=== PATIENT | male | born 1965 | race Caucasian/White ===

== ENCOUNTER → 2017-12-16 | Outpatient (CLI) | payer MEDICARE, OTHER ==
[2017-12-16 16:11] LABS: Blood Urea Nitrogen 19 mg/dL (9-20)
--- NOTE | 2017-12-16 20:37 | MR ---
EXAMINATION TYPE: MR iac wo/w con DATE OF EXAM: 12/16/2017 5:31 PM COMPARISON: NONE HISTORY: Hearing loss TECHNIQUE: Multiplanar and multispin-echo imaging of the brain was performed both before and after the administr ation of contrast. High-resolution images are obtained of the internal auditory canals performed uti lizing 9 mL intravenous Gadavist contrast. The ventricles, basal cisterns and sulci overlying the cerebral convexities are mildly enlarged. There is no evidence for midline shift or mass effect. Acute intracranial hemorrhage or extra-axial collection is not evident. There are no abnormal areas of increased or decreased signal intensity within the brain parenchyma. High-resolution imaging of the internal auditory canals fails demonstrate evidence for an enhancing a coustic schwannoma or cerebellopontine cistern angle mass. Following contrast administration, there is no evidence for pathologic enhancement or enhancing mass. The paranasal sinuses and mastoid air cells are well-aerated. IMPRESSION: 1. No evidence of acoustic schwannoma or cerebellopontine angle mass.
== END | disposition home or self-care (01) ==
LOC: RADMRIMAIN 15:31
PROVIDERS: ATTEND Otolaryngology
DX: H91.90 Unspecified hearing loss, unspecified ear (principal); H93.19 Tinnitus, unspecified ear
CPT/HCPCS: 82565; 84520; 70553; 36415; A9581

== ENCOUNTER → 2018-10-29 | Outpatient (CLI) | payer MEDICARE, OTHER | LOC: LABWHC1 14:46 | PROVIDERS: ATTEND Nurse Practitioner Adult Health | DX: D72.829 Elevated white blood cell count, unspecified (principal); E11.9 Type 2 diabetes mellitus without complications; I10 Essential (primary) hypertension; R79.89 Other specified abnormal findings of blood chemistry | CPT/HCPCS: 36415; 93005 ==

== ENCOUNTER 2019-06-12 04:06 | Inpatient (IN) | payer MEDICARE, OTHER ==
[2019-06-12] MEDS ORDERED: IOPAMIDOL-370 100ML BTL ONE (04:22)
[2019-06-12] MEDS ORDERED: IOPAMIDOL-370 125ML BTL ONE (04:22)
[2019-06-12] MEDS ORDERED: BIVALIRUDIN 250 MG VIAL IV ONE (04:22)
[2019-06-12] MEDS ORDERED: NITROGLYCERIN 1000MCG/10ML SYRINGE ONE (04:22)
[2019-06-12] MEDS ORDERED: LIDOCAINE 1% INJ 10MG/ML (20 ML MDV) ONE (04:22)
[2019-06-12] MEDS ORDERED: SODIUM CHLORIDE 0.9% 500 ML BAG ONE (04:22)
[2019-06-12] MEDS ORDERED: TICAGRELOR 90 MG TAB ONE (04:22)
[2019-06-12] MEDS ORDERED: fentaNYL (PF) 50 MCG/ML 2 ML AMP ONE (04:22)
[2019-06-12] MEDS ORDERED: SODIUM CHLORIDE 0.9% 50 ML MINI-BAG IV ONE (04:22)
[2019-06-12] MEDS ORDERED: MAG HYDROX/AL HYDROX/SIMETH 30 ML CUP PO PRN (05:39)
[2019-06-12] MEDS ORDERED: RX INFO: IV CONTRAST WAS GIVEN 1 EACH MISC MISCELLANE PRN (05:39)
[2019-06-12] MEDS ORDERED: NITROGLYCERIN SL TABS 0.4 MG TAB SUBLINGUAL PRN (05:39)
[2019-06-12] MEDS ORDERED: ATROPINE SULFATE 0.1 MG/ML 10ML SYRINGE IV PRN (05:39)
[2019-06-12 06:23] LABS: Glucose,Whole Blood 145 mg/dL (75-99)
--- NOTE | 2019-06-12 06:29 | CONS ---
CONSULTATION Mr. Camacho is a 53-year-old male with a history of diabetes and hypertension who presented to the emergency room in [facility] with not feeling well, feeling nauseated and having some abdominal discomfort. His initial EKG showed no significant changes. Subsequently he had an episode of tachycardia and was given adenosine without any success. He was sedated for possible cardioversion when he converted back to sinus mechanism and his repeat EKG subsequently showed ST elevation anteriorly. In view of that, patient was transferred to [facility] for further evaluation. The patient denies any similar symptoms in the past according to him he felt anxious, short of breath and had abdominal discomfort and heartburn. He denies any prior cardiac history. He denies any history of PND, orthopnea, or peripheral edema. He denies any palpitation or syncope. His coronary risk factors are noted for the diabetes as well as a history of hypertension. He is a nonsmoker. REVIEW OF SYSTEMS: RESPIRATORY SYSTEM: No recent wheezing or cough. GI SYSTEM: No recent GI bleed. No peptic ulcer disease. SYSTEM: No dysuria or hematuria. NERVOUS SYSTEM: No history of stroke or seizure. PHYSICAL EXAMINATION: He is a 53-year-old male, alert, oriented, in no apparent distress. Examined in the cardiac catheterization laboratory. Blood pressure 98/72 with the heart rate of 102. HEAD: Normocephalic. EYES: Sclerae anicteric. NECK: No bruit. LUNGS: Clear to auscultation anteriorly. HEART: Regular rate and rhythm. S1, S2. No S3. No rub or gallop appreciated. ABDOMEN: Soft, obese. Positive bowel sounds. No organomegaly. EXTREMITIES: No edema. Intact distal pulses. LAB DATA: Hemoglobin of 11.5, white blood cells 13.9. BUN and creatinine of 18 and 1.4. Potassium 3.5. Troponin of 0.409. EKG: Initial EKG was sinus mechanism with T-wave inversion in the lateral precordial leads. Subsequent EKG revealed ST elevation in lead V1 through V3 with ST depression in the lateral limb leads. There is an EKG in between the showed wide-complex tachycardia. IMPRESSION: 1. Acute anterior myocardial infarction with ST elevation and an episode of ventricular tachycardia. 2. History of diabetes. 3. Hypertension. RECOMMENDATION: I recommend proceeding with coronary angiography to assess his status and guide his treatment. The rationale behind the procedure as well as the risks and complication were discussed with the patient who is in full understanding and agreement. Thank you for this consult. We will follow with you. MMODL / IJN: [id number] /
--- NOTE | 2019-06-12 06:41 | CC ---
CARDIAC CATHETERIZATION REPORT Mr. Camacho is a 53-year-old male with known history of diabetes, history of hypertension who presented with an acute anterior myocardial infarction complicated by ventricular tachycardia to [facility]. He was transferred to [facility] to undergo emergent cardiac catheterization. The procedure as well as the risks and the complications were discussed with the patient who is in full understanding and agreement. PROCEDURE: Patient was brought to the mobile home laborer. He was draped and prepped in customary fashion after receiving Benadryl and fentanyl and achieving moderate conscious sedated state. Using Xylocaine anesthesia in the Seldinger technique, a 6-Mongolian sheath was introduced in the right femoral artery. Selective right and left coronary angiography was performed using 6-Mongolian FR4 guiding catheter. After obtaining images of the left coronary system and performing coronary angioplasty and stenting images of the right coronary artery performed using 6-Mongolian 4 bend right Miguel catheter and subsequently a 6-Mongolian tight pigtail catheter was introduced in the left ventricle and pressures were calculated. Following that, catheter and sheath were removed. Hemostasis was obtained with deployment of an Angio-Seal. There was no immediate complication. Patient was returned to his room in stable condition. FINDINGS: FLUOROSCOPY: There was calcification involving the left anterior descending artery. LEFT MAIN: This is a large-sized vessel bifurcating in left circumflex, left anterior descending artery. Left main coronary artery has no evidence of high-grade stenosis. LEFT ANTERIOR DESCENDING ARTERY: This vessel is totally occluded proximally at the takeoff of the first septal oracle technical architect and first diagonal branch with no antegrade flow. The diagonal branch has a 70% to 80% stenosis in the mid segment. LEFT CIRCUMFLEX: This is a large-sized vessel, nondominant, giving rise to a large very proximal obtuse marginal branch. The second obtuse marginal branch is small in caliber. The left circumflex has mild intimal disease without any evidence of high-grade stenosis. RIGHT CORONARY ARTERY: This is a large dominant vessel bifurcating distally PDA and posterolateral segment and branches. The right PDA has an 80% stenosis in the mid segment. The rest of the vessel has no high-grade stenosis. LEFT VENTRICULOGRAM: Left ventriculogram is not performed. HEMODYNAMICS: There was no gradient across the aortic valve. The left ventricular end-diastolic pressure was 32 to 34 mmHg. CONCLUSION: 1. Totally occluded proximal left anterior descending artery. 2. Significant disease in the right PDA. 3. Mild disease in left circumflex. RECOMMENDATION: In view of finding anatomy, I recommend proceeding with angioplasty and stenting of the left anterior descending artery. The procedure as well as the risks and the complications were discussed with the patient who is in full understanding and agreement. MMSHANKAR / KADE: [id number] /
--- NOTE | 2019-06-12 06:50 | PTCA ---
PERCUTANEOUSTRANS CORORONARY ANGIOGRAPHY Mr. Camacho is a 53-year-old male who presented with evidence of an acute myocardial infarction in the anterior distribution, underwent coronary angiography and was found to have a totally occluded proximal LAD. In view of that, recommendation was made regarding angioplasty and stenting. The procedure as well as the risks and the complications were discussed with the patient who is in full understanding and agreement. PROCEDURE: Using the 6-Nepali FR4 guiding catheter, a 0.014 balanced medium weight J-wire was advanced across in the system and positioned in the first septal high school math tutor. Subsequently, a FineCross catheter microcatheter and another 0.014 balanced medium weight J-wire were advanced and attempt to advance the wire into the totally occluded LAD were unsuccessful. The wires were removed and a Whisper J-wire was advanced and positioned distally. Subsequently the FineCross catheter was advanced and the wire was exchanged to a 0.014 balanced medium weight J-wire. After removing the FineCross a 2.0 x 12 mm Trek balloon was advanced and multiple inflations were done, maximum of 10 atmospheres. Following that, the balloon was removed and a 2.5 x 12 mm Trek balloon was advanced and inflations were done at maximum of 8 atmospheres. Following that, the balloon was removed and a 2.75 x 23 mm Xience Manasa stent was deployed post dilated at 16 atmospheres. After removing the balloon, a 3.0 x 12 mm Xience Manasa stent was deployed proximal to the first one and post dilated at 16 atmospheres. After the last inflation, after appropriate wait, images were obtained and repeated. Those images reveal stable successful stenting. At that point, the guiding catheter, the balloon and the guidewire were removed. Images of the right coronary artery and left ventricular end-diastolic pressure were calculated. Following that, catheter and sheaths were removed. Hemostasis was obtained with deployment of an Angio-Seal. There was no immediate complication. Patient was returned to his room in stable condition. Of note, the patient had no chest discomfort, but he had EKG changes that improved. He received Angiomax per protocol as well as oral loading dose of Brilinta. RESULTS: Successful stenting of the proximal left anterior descending artery with reduction of stenosis from 100% to 0%. The patient has diffuse intimal disease in the distal vessel. RECOMMENDATION: Patient will be continued on aspirin, Brilinta, beta blockers, Dean inhibitor and statin. The importance of dual antiplatelet treatment was discussed with the patient. He is in full understanding and agreement. An echocardiogram with Doppler will be obtained. At a later time, patient will undergo percutaneous revascularization of the right coronary artery. Those findings and recommendation were discussed with the patient and he is in full understanding and agreement. Duration of procedure is 60 minutes. JACKIE / KADE: [id number] /
[2019-06-12] MEDS ORDERED: FUROSEMIDE 10 MG/ML 4 ML VIAL IV STA (07:20)
--- NOTE | 2019-06-12 07:38 | P.PN ---
Subjective Progress Note Date: 06/12/19 Principal diagnosis: Acute coronary syndrome This is a pleasant 53-year-old gentleman with history of diabetes, hypertension, dyslipidemia, presented to the hospital with chest discomfort and was diagnosed with acute anterior ST vision and cardiac infarction. He underwent an emergent heart catheterization and was found to have an acute total occlusion of the LAD and severe disease involving the RCA. He underwent successful stenting of the LAD. On follow-up with him today, 06/12/2019, he is short of breath. Currently he is satting around 91% on 6 L high flow oxygen. On examination he is slightly congested and also does have systolic murmur at the right upper sternal border. An echocardiogram is in process to be done to rule out any ventricular septal defect or mitral regurgitation. Also I am going to obtain a chest x-ray and BNP. Also I'm going to give the patient 40 mg of Lasix IV and follow-up with the previous testing. He denies any chest pain or chest discomfort. He is on dual antiplatelet therapy along with statin, beta janiya, TANISHA inhibitor, and A ldactone. Objective - Vital Signs Vital signs: Intake & Output 06/11/19 06/12/19 06/12/19 18:59 06:59 18:59 Weight 91 kg - Constitutional General appearance: Present: no acute distress - Respiratory Respiratory: bilateral: diminished - Cardiovascular Rhythm: regular Heart sounds: normal: S1, S2 Abnormal Heart Sounds: Present: systolic murmur - Labs Labs: Abnormal Lab Results - Last 24 Hours (Table) 06/12/19 Range/Units 06:22 POC Glucose (mg/dL) 145 H (75-99) mg/dL Assessment and Plan Assessment: Assessment #[address] elevation myocardial infarction #2 status post PCI of the LAD #3 severe disease involving the RCA #4 hypoxemia #5 multiple risk factors including hypertension diabetes and dyslipidemia Plan #1 rule out VSD/mitral regurgitation #2 obtain a chest x-ray #3 obtain a BNP #4 give the dose of Lasix 40 IV #5 follow-up with the patient including follow-up on the echocardiogram
--- NOTE | 2019-06-12 07:42 | XR ---
EXAMINATION TYPE: XR chest 1V portable DATE OF EXAM: 06/12/2019 COMPARISON: NONE HISTORY: Shortness of breath. History of myocardial infarct. TECHNIQUE: Single frontal view of the chest is obtained. FINDINGS: There are diffuse interstitial and some patchy alveolar opacities greater on the left than right secondary to rotation. Cardia mediastinal fluid is enlarged. No sizable pleural effusions or p neumothorax at this time. No acute osseous pathology. IMPRESSION: Diffuse interstitial and alveolar edema. Consider congestive heart failure.
[2019-06-12] MEDS: SODIUM CHLORIDE 0.9% 1,000 ML IV SCH ×2 (07:52→20:40)
[2019-06-12 07:53] LABS: Cholesterol 157 mg/dL (<200); HDL Cholesterol 29 mg/dL (40-60); LDL Cholesterol,Calculated 67 mg/dL (0-99); Triglycerides 306 mg/dL (<150)
[2019-06-12 08:35] LABS: Albumin 3.4 g/dL (3.5-5.0); Calcium 7.9 mg/dL (8.4-10.2); Total Bilirubin 0.5 mg/dL (0.2-1.3); Total Protein 6.6 g/dL (6.3-8.2)
[2019-06-12 08:50] LABS: Basophils # (A) 0.1 k/uL (0-0.2); Basophils % (A) 1 %; Eosinophils % (A) 0 %; HCT 35.7 % (39.0-53.0); HGB 11.1 gm/dL (13.0-17.5); Hypochromasia Slight; Lymphocytes # (A) 1.8 k/uL (1.0-4.8); Lymphocytes % (A) 19 %; MCH 28.4 pg (25.0-35.0); MCHC 31.3 g/dL (31.0-37.0); Mean Platelet Volume 7.2; Monocytes # (A) 0.5 k/uL (0-1.0); Monocytes % (A) 5 %; Neutrophils % (A) 75 %; Platelet Count 278 k/uL (150-450); Poikilocytosis Slight; RBC 3.92 m/uL (4.30-5.90); WBC 9.4 k/uL (3.8-10.6)
[2019-06-12] MEDS: METOPROLOL TARTRATE 25 MG TAB PO SCH ×2 (08:51→21:39)
[2019-06-12] MEDS: ASPIRIN 81 MG PO SCH (08:52)
[2019-06-12] MEDS: TICAGRELOR 90 MG TAB PO SCH ×2 (08:52→21:39)
--- NOTE | 2019-06-12 09:06 | ECHOF ---
Referral Reason:mi MEASUREMENTS -------- HEIGHT: 180.3 cm WEIGHT: 90.7 kg BP: RVIDd: 2.7 cm (< 3.3) IVSd: 1.3 cm (0.6 - 1.1) LVIDd: 5.6 cm (3.9 - 5.3) LVPWd: 1.2 cm (0.6 - 1.1) IVSs: 1.3 cm LVIDs: 4.7 cm LVPWs: 1.3 cm LAESV Index (A-L): 23.64 ml/m Ao Diam: 3.5 cm (2.0 - 3.7) AV Cusp: 2.1 cm (1.5 - 2.6) LA Diam: 3.0 cm (2.7 - 3.8) MV EXCURSION: 18.134 mm (> 18.000) MV EF SLOPE: 205 mm/s (70 - 150) EPSS: 1.0 cm MV E Joce: 1.04 m/s MV DecT: 184 ms MV A Joce: 0.62 m/s MV E/A Ratio: 1.70 RAP: 5.00 mmHg RVSP: 8.99 mmHg TAPSE: 23.08 mm FINDINGS -------- Sinus rhythm. This was a technically difficult study with suboptimal views. The left ventricular size is normal. There is mild concentric left ventricular hypertrophy. Overa ll left ventricular systolic function is moderate-severely impaired with, an EF between 30 - 35 %. Normal LAP Grade 1 Diastolic Dysfunction. Basal anteroseptal LV wall motion is hypokinetic. Mid anteroseptal LV wall motion is hypokinetic. Apical anterior LV wall motion is hypokinetic. Apic al lateral LV wall motion is hypokinetic. Apical inferior LV wall motion is hypokinetic. Apical septum LV wall motion is hypokinetic. The right ventricle is normal in size. The right ventricular systolic function is normal. The left atrial size is normal. Normal LA size by volume 22+/-6 ml/m2. The right atrial size is normal. Lumason used The aortic valve is trileaflet and appears structurally normal. The mitral valve is normal. There is trace mitral regurgitation. The tricuspid valve appears structurally normal. Trace tricuspid regurgitation present. Right main tricular systolic pressure is normal at < 35 mmHg. There is no pulmonic regurgitation present. The aortic root size is normal. IVC Not well visulized. There is no pericardial effusion. CONCLUSIONS -------- 1. Sinus rhythm. 2. This was a technically difficult study with suboptimal views. 3. The left ventricular size is normal. 4. There is mild concentric left ventricular hypertrophy. 5. Overall left ventricular systolic function is moderate-severely impaired with, an EF between 30 - 35 %. 6. Normal LAP Grade 1 Diastolic Dysfunction. 7. Basal anteroseptal LV wall motion is hypokinetic. 8. Mid anteroseptal LV wall motion is hypokinetic. 9. Apical anterior LV wall motion is hypokinetic. 10. Apical lateral LV wall motion is hypokinetic. 11. Apical inferior LV wall motion is hypokinetic. 12. Apical septum LV wall motion is hypokinetic. 13. The right ventricle is normal in size. 14. The right ventricular systolic function is normal. 15. The left atrial size is normal. 16. Normal LA size by volume 22+/-6 ml/m2. 17. The right atrial size is normal. 18. Lumason used 19. The aortic valve is trileaflet and appears structurally normal. 20. The mitral valve is normal. 21. There is trace mitral regurgitation. 22. The tricuspid valve appears structurally normal. 23. Trace tricuspid regurgitation present. 24. Right ventricular systolic pressure is normal at < 35 mmHg. 25. There is no pulmonic regurgitation present. 26. The aortic root size is normal. 27. IVC Not well visulized. 28. There is no pericardial effusion. CONTRACT SPECIALIST: Ashley Chilel RDCS
[2019-06-12] MEDS ORDERED: ADENOSINE 3 MG/ML 2 ML VIAL IVP ONE (09:55)
[2019-06-12] MEDS ORDERED: FUROSEMIDE 10 MG/ML 4 ML VIAL ONE (10:08)
[2019-06-12] MEDS: LISINOPRIL 2.5 MG TAB PO SCH (10:38)
[2019-06-12] MEDS: SPIRONOLACTONE 25 MG TAB PO SCH (10:38)
[2019-06-12] MEDS ORDERED: DEXTROSE 5% IN WATER 100 ML with AMIODARONE 150 MG IV ONE (10:49)
[2019-06-12] MEDS ORDERED: AMIODARONE 360 MG in DEXTROSE 5% IN WATER 200 ML IV ONE ×2 (10:49)
--- NOTE | 2019-06-12 11:12 | P.PN ---
Progress Note - Text Progress Note Date: 06/12/19 This is another progress note for this gentleman who was seen this morning. Please refer to my previous note from this morning. Around 10:30 this morning, the patient did have an episode of wide complex tachycardia consistent with V. tach and he was shocked and cardioverted back to normal sinus mechanism. His pressure has been marginal. Because of that I would hold the lisinopril as well as Aldactone and continue metoprolol. He is going to be loaded with amiodarone with bolus and drip. Also we are obtaining magnesium and potassium level. He diuresed quite well after he was given 40 mg IV Lasix earlier this morning. The BNP came in to be elevated and the chest x- ray showed findings consistent with congestive heart failure. I would recommend giving the patient one more day in the intensive care unit. Continue monitor the heart rhythm. Follow-up the patient. Please note that the echo showed severe cardiomyopathy with EF around 30-35%.
[2019-06-12 11:28] LABS: Magnesium 1.6 mg/dL (1.6-2.3); Potassium 3.6 mmol/L (3.5-5.1)
[2019-06-12 11:41] LABS: Hemoglobin A1C 7.3 % (4.0-6.0)
[2019-06-12] MEDS: MAGNESIUM SULFATE-D5W PMX 1 GM in DEXTROSE/WATER 1 100ML.BAG IVPB SCH ×2 (11:48→13:46)
[2019-06-12] MEDS ORDERED: POTASSIUM CHLORIDE ER 20 MEQ TAB.ER PO SCH (12:00)
[2019-06-12] MEDS ORDERED: DICLOFENAC SODIUM GEL 100 GM TUBE TOPICAL PRN (15:40)
--- NOTE | 2019-06-12 16:07 | P.HPIM ---
History of Present Illness H&P Date: 06/12/19 Chief Complaint: STEMI 53-year-old male patient with history of diabetes and hypertension transferred from [facility] with acute STEMI; patient was admitted with nausea and abdominal pain with stable EKG at time of admission but later developed episode of tachycardia and was given adenosine which was unsuccessful; patient eventually converted back to sinus rhythm at which time EKG showed ST elevation in anterior leads and was transferred to our facility for further evaluation and treatment Upon arrival to the facility patient was directly taken to [facility]; Cardiac catheterization showed total occlusion of proximal LAD for which patient underwent successful stenting and is subsequently transferred to ICU for continued close monitoring In ICU around 10:30 patient had an episode of wide complex tachycardia consistent with V. tach and was shocked and converted back to normal sinus rhythm; blood pressures were marginal at that time and cardiology recommended to hold lisinopril, Aldactone and recommended to continue metoprolol; patient is currently started on amiodarone bolus and infusion; had been complaining of shortness of breath at which time chest x-ray and BNP was done consistent with congestive heart failure; patient was given a dose of IV Lasix per cardiology recommendations Review of Systems REVIEW OF SYSTEMS: CONSTITUTIONAL: No fever, no malaise, no fatigue. Remains very anxious HEENT: No recent visual problems or hearing problems. Denied any sore throat. CARDIOVASCULAR: No chest pain, orthopnea, PND, no palpitations, no syncope. PULMONARY: No shortness of breath, no cough, no hemoptysis. GASTROINTESTINAL: No diarrhea, no nausea, no vomiting, no abdominal pain. NEUROLOGICAL: No headaches, no weakness, no numbness. HEMATOLOGICAL: Denies any bleeding or petechiae. GENITOURINARY: Denies any burning micturition, frequency, or urgency. MUSCULOSKELETAL/RHEUMATOLOGICAL: Denies any joint pain, swelling, or any muscle pain. ENDOCRINE: Denies any polyuria or polydipsia. The rest of the 14-point review of systems is negative. Past Medical History Past Medical History: Diabetes Mellitus, GERD/Reflux, Hyperlipidemia, Hypertension, Osteoarthritis (OA), Thyroid Disorder Additional Past Medical History / Comment(s): dev septum and recurring ulcer in left nostril. ELEVATED WBC (45)-08/21/18 History of Any Multi-Drug Resistant Organisms: MRSA Date of last positivie culture/infection: 07/24/18 MDRO Source:: BACK Past Surgical History: Cholecystectomy, Orthopedic Surgery Additional Past Surgical History / Comment(s): double vision correction. left wrist surgery. RT KNEE SX TO PUT WICK IN TO DRAIN MRSA-10-12 YEARS AGO Past Anesthesia/Blood Transfusion Reactions: No Reported Reaction Smoking Status: Never smoker - Past Family History Mother Family Medical History: Congestive Heart Failure (CHF), Deep Vein Thrombosis (DVT), Myocardial Infarction (AZ), Rheumatoid Arthritis (RA) Father Family Medical History: Cancer Additional Family Medical History / Comment(s): lung Brother(s) Additional Family Medical History / Comment(s): AAA Medications and Allergies Home Medications Medication Instructions Recorded Confirmed Type DULoxetine HCL [Cymbalta] 60 mg PO QAM 02/09/16 06/12/19 History Diclofenac Sodium Gel [Voltaren 1 applic TOPICAL QID PRN 02/09/16 06/12/19 History Gel] Fluticasone Nasal [place] [Flonase 2 spr EA NOSTRIL TID PRN 02/09/16 06/12/19 History Nasal [place]] Metoprolol Succinate (ER) [Toprol 200 mg PO QAM 02/09/16 06/12/19 History Xl] Pioglitazone [Actos] 30 mg PO DAILY 02/09/16 06/12/19 History Rosuvastatin Calcium [Crestor] 20 mg PO QAM 02/09/16 06/12/19 History metFORMIN HCL [Metformin HCl ER] 2,000 mg PO [id number] 02/09/16 06/12/19 History ALPRAZolam [Xanax] 0.5 mg PO BID PRN 09/01/18 06/12/19 History Dextroamphetamine/Amphetamine 30 mg PO 5XD 09/01/18 06/12/19 History [Adderall] Levothyroxine Sodium [Synthroid] 25 mcg PO DAILY 09/01/18 06/12/19 History Loratadine [Claritin] 10 mg PO DAILY 09/01/18 06/12/19 History Omeprazole 20 mg PO DAILY 09/01/18 06/12/19 History Psyllium Husk (with Sugar) 6 gm PO BID PRN 09/01/18 06/12/19 History [Metamucil Powder] Brimonidine Tartrate [Alphagan P 1 drops BOTH EYES BID 06/12/19 06/12/19 History 0.1% Ophth Soln] Dasatinib [Sprycel] 100 mg PO DAILY 06/12/19 06/12/19 History Liraglutide [Victoza 3-Juan Manuel] 1.8 mg SQ DAILY 06/12/19 06/12/19 History Testosterone Cypionate 1 mg IM Q30D 06/12/19 06/12/19 History [Depo-Testosterone] Allergies Allergy/AdvReac Type Severity Reaction Status Date / Time amoxicillin trihydrate Allergy Rash/Hives Verified 06/12/19 08:13 [From Augmentin] latanoprost Allergy Swelling Verified 06/12/19 08:13 potassium clavulanate Allergy Rash/Hives Verified 06/12/19 08:13 [From Augmentin] sulfamethoxazole Allergy Rash/Hives Verified 06/12/19 08:13 [From Bactrim] Tetanus Vaccines and Toxoid Allergy Swelling Verified 06/12/19 08:13 [Tetanus Vaccines & Toxoid] trimethoprim [From Bactrim] Allergy Rash/Hives Verified 06/12/19 08:13 Physical Exam Vitals: Vital Signs Temp Pulse Resp BP Pulse Ox 06/12/19 09:00 94 20 104/64 96 06/12/19 08:00 97.6 F 98 22 111/68 94 L 06/12/19 07:00 97.8 F 98 19 94/66 98 Intake and Output 06/11/19 06/12/19 06/12/19 22:59 06:59 14:59 Intake Total 75 225 Output Total 1150 Balance 75 -925 Intake: IV 150 Sodium Chloride 0.9% 1, 150 000 ml @ 75 mls/hr IV . [id number] BRAD Rx#:[id number] Intake, IV Titration 75 75 Amount Sodium Chloride 0.9% 1, 75 75 000 ml @ 75 mls/hr IV . [id number] BRAD Rx#:[id number] Output: Urine 1150 Other: Weight 91 kg - Constitutional General appearance: Present: average body habitus, cooperative, no acute distress - EENT Eyes: Present: anicteric sclerae, EOMI, PERRLA, normal appearance ENT: Present: hearing grossly normal, normal oropharynx Ears: bilateral: normal - Neck Neck: Present: normal ROM. Absent: lymphadenopathy, rigidity, thyromegaly Carotids: negative: bruit present Thyroid: bilateral: normal size, negative: enlarged, nodule - Respiratory Respiratory: bilateral: CTA, negative: rales, rhonchi, wheezing - Cardiovascular Rhythm: regular Heart sounds: normal: S1, S2 Abnormal Heart Sounds: Absent: systolic murmur, diastolic murmur - Gastrointestinal General gastrointestinal: Present: normal bowel sounds, soft. Absent: distended, organomegaly, tenderness - Genitourinary Genitourinary Comment(s): deferred - Integumentary Integumentary: Present: normal turgor. Absent: jaundiced, rash, ulcer - Neurologic Neurologic: Present: CNII-XII intact. Absent: focal deficits - Musculoskeletal Musculoskeletal: Present: gait normal, strength equal bilaterally - Psychiatric Psychiatric: Present: A&O x's 3, appropriate affect, intact judgment & insight Results CBC & Chem 7: 06/12/19 06:31 06/12/19 10:59 Labs: Abnormal Lab Results - Last 24 Hours (Table) 06/12/19 06/12/19 06/12/19 Range/Units 06:22 06:31 06:31 RBC (4.30-5.90) m/uL Hgb (13.0-17.5) gm/dL Hct (39.0-53.0) % Glucose (74-99) mg/dL POC Glucose (mg/dL) 145 H (75-99) mg/dL Plasma Lactic Acid Will (0.7-2.0) mmol/L Calcium (8.4-10.2) mg/dL AST (17-59) U/L Troponin I 1.080 H* (0.000-0.034) ng/mL Albumin (3.5-5.0) g/dL Triglycerides 306 H (<150) mg/dL HDL Cholesterol 29 L (40-60) mg/dL 06/12/19 06/12/19 06/12/19 Range/Units 06:31 06:31 08:26 RBC 3.92 L (4.30-5.90) m/uL Hgb 11.1 L (13.0-17.5) gm/dL Hct 35.7 L (39.0-53.0) % Glucose 150 H (74-99) mg/dL POC Glucose (mg/dL) (75-99) mg/dL Plasma Lactic Acid Will 2.3 H* (0.7-2.0) mmol/L Calcium 7.9 L (8.4-10.2) mg/dL AST 67 H (17-59) U/L Troponin I (0.000-0.034) ng/mL Albumin 3.4 L (3.5-5.0) g/dL Triglycerides (<150) mg/dL HDL Cholesterol (40-60) mg/dL Assessment and Plan Assessment: 1. Wide complex tachycardia/V. tach - Patient remains on IV amiodarone infusion and metoprolol - 2-D echocardiogram is done and shows severe cardiomyopathy with EF of 30-35% 2. Acute ST elevation [place]; patient is status post cardiac catheterization with stenting of proximal LAD; Also showed severe disuse to RCA; he will continue with dual antiplatelet therapy, statins and beta blockers; stu inhibitors and Aldactone to resume once blood pressure is stable 3. Acute exacerbation of systolic CHF; as indicated EF is 30-35%; patient received Lasix 40 mg IV 1; cardiology is following and will make further recommendations; we will continue to monitor strict GALLO's, daily weights; continue with fluid restricted and low salt diet 4. Diabetes mellitus; monitor Accu-Cheks every before meals and at bedtime with insulin sliding scale protocol 5. Hyperlipidemia; continue with statin therapy with Lipitor 80 mg daily at bedtime 6. Hypothyroidism; levothyroxin 25 MCG daily 7. DVT prophylaxis; dual antiplatelet therapy/ SCDs CODE STATUS; full code Time with Patient: Greater than 30
[2019-06-12 16:46] LABS: Glucose,Whole Blood 203 mg/dL (75-99)
[2019-06-12 17:43] LABS: Glucose,Whole Blood 188 mg/dL (75-99)
[2019-06-12] MEDS: INSULIN ASPART (NovoLOG) 100 UNIT/ML VIAL SQ SCH ×2 (17:45→21:38)
[2019-06-12] MEDS: AMIODARONE 300 MG in DEXTROSE 5% IN WATER 250 ML IV SCH ×2 (20:40)
[2019-06-12] MEDS: BRIMONIDINE TARTRATE 0.2% DROPS 5 ML BTL BOTH EYES SCH (21:39)
[2019-06-12] MEDS: ATORVASTATIN 80 MG TAB PO SCH (21:39)
[2019-06-12] MEDS: ALPRAZolam 0.5 MG TAB PO PRN (21:39)
[2019-06-12 21:46] LABS: Glucose,Whole Blood 203 mg/dL (75-99)
[2019-06-13] MEDS: ZOLPIDEM 5 MG TAB PO PRN ×2 (01:20→23:11)
[2019-06-13] MEDS ORDERED: Potassium Replacement Protocol 1 EACH MISC MISCELLANE PRN (01:50)
[2019-06-13] MEDS: POTASSIUM CHLORIDE 10 MEQ in WATER FOR INJECTION 1 100ML.BAG IVPB SCH ×4 (02:21→10:20)
[2019-06-13] MEDS: AMIODARONE 300 MG in DEXTROSE 5% IN WATER 250 ML IV SCH ×2 (04:22)
[2019-06-13 06:37] LABS: HGB 10.2 gm/dL (13.0-17.5); MCH 28.8 pg (25.0-35.0); MCHC 31.9 g/dL (31.0-37.0); MCV 90.1 fL (80.0-100.0); Mean Platelet Volume 7.9; Platelet Count 224 k/uL (150-450); Poikilocytosis Slight; RBC 3.55 m/uL (4.30-5.90); RDW 14.9 % (11.5-15.5); WBC 10.1 k/uL (3.8-10.6)
[2019-06-13 06:54] LABS: African American GFR (CKD) >90 (>60 ml/min/1.73 sqM); Anion Gap 8 mmol/L; Blood Urea Nitrogen 15 mg/dL (9-20); Calcium 7.6 mg/dL (8.4-10.2); Carbon Dioxide 31 mmol/L (22-30); Chloride 97 mmol/L (98-107); Glucose 278 mg/dL (74-99); Non-African American GFR(CKD) >90 (>60 ml/min/1.73 sqM); Potassium 3.9 mmol/L (3.5-5.1); Sodium 136 mmol/L (137-145)
[2019-06-13 07:03] LABS: Glucose,Whole Blood 183 mg/dL (75-99)
[2019-06-13] MEDS: INSULIN ASPART (NovoLOG) 100 UNIT/ML VIAL SQ SCH ×4 (08:58→20:42)
[2019-06-13] MEDS: PANTOPRAZOLE 40 MG TABLET PO SCH (09:01)
[2019-06-13] MEDS: LEVOTHYROXINE 25 MCG TAB PO SCH (09:01)
[2019-06-13] MEDS: ASPIRIN 81 MG PO SCH (09:02)
[2019-06-13] MEDS: SODIUM CHLORIDE 0.9% 1,000 ML IV SCH (09:02)
[2019-06-13] MEDS: BRIMONIDINE TARTRATE 0.2% DROPS 5 ML BTL BOTH EYES SCH ×2 (09:03→20:43)
[2019-06-13] MEDS: SPIRONOLACTONE 25 MG TAB PO SCH (09:03)
[2019-06-13] MEDS: DULoxetine HCL 60 MG CAPSULE.DR PO SCH (09:04)
[2019-06-13] MEDS: LORATADINE 10 MG TAB PO SCH (09:04)
[2019-06-13] MEDS: TICAGRELOR 90 MG TAB PO SCH ×2 (09:04→20:42)
[2019-06-13] MEDS: LISINOPRIL 2.5 MG TAB PO SCH (09:04)
[2019-06-13] MEDS: METOPROLOL TARTRATE 25 MG TAB PO SCH ×2 (09:04→20:41)
--- NOTE | 2019-06-13 09:40 | P.PN ---
Subjective Progress Note Date: 06/13/19 This patient was admitted was limited episodes of shortness of breath and palpitations. Patient was found to have arrhythmiaa, most probably ventricular tachycardia. His EKG on admission showed QS pattern in the anterior leads with ST elevation. Patient had a cardiac catheterization and was found to have total occlusion of the LAD and 90% stenosis of the RCA. Patient had stent placement of the LAD. Patient had another bout of wide complex tachycardia yesterday requiring heart impression. Appears to be ventricular tachycardia. Currently patient is on IV amiodarone. He is also on dual antiplatelet agents along with beta janiya, TANISHA inhibitor and diuretics. He chest x-rays to show pulmonary edema. Today is feeling better. It appears that patient diary segmental. His blood pressures more stable. We'll going to add Lasix 20 may gram once daily. Will switch to by mouth amiodarone. Most probably related stent placement of the RCA and subsequently should be considered for prophylactic AICD. Prognosis is guarded Objective - Vital Signs Vital signs: Vital Signs Temp 99.7 F H 06/13/19 04:00 Pulse 101 H 06/13/19 09:01 Resp 24 06/13/19 09:01 BP 115/69 06/13/19 09:01 Pulse Ox 97 06/13/19 09:01 Intake & Output 06/12/19 06/13/19 06/13/19 18:59 06:59 18:59 Intake Total 440 740.834 40 Output Total 3095 695 130 Balance -2655 45.834 -90 Weight 91 kg 96.3 kg Intake: IV 365 240 40 Sodium Chloride 0.9% 1, 365 240 40 000 ml @ 20 mls/hr IV . Q24H BRAD Rx#:[id number] Intake, IV Titration 75 400.834 Amount Amiodarone 300 mg In 200.834 Dextrose 5% in Water 250 ml @ 0.5 MG/MIN 25 mls/hr IV .Q10H BRAD Rx#: [id number] Potassium Chloride 10 meq 200 In Water For Injection 1 100ml.bag @ 100 mls/hr IVPB Q1H BRAD Rx#: [id number] Sodium Chloride 0.9% 1, 75 000 ml @ 20 mls/hr IV . Q24H BRDA Rx#:[id number] Oral 100 Output: Urine 3095 695 130 Other: Voiding Method Indwelling Catheter Indwelling Catheter - Exam GENERAL EXAM: Patient is alert and oriented and doesn't appear to be in any acute distress HEENT: Normocephalic. Normal reaction of pupils, equal size, normal range of extraocular motion. No erythema or exudates in the throat. NECK: No masses, no nuchal rigidity. CHEST: No chest wall deformity. LUNGS: Diminished breath sounds at bases HEART: S1 and S2 normal with no audible mumurs or gallops. Regular rhythm, femorals equal on both sides.. ABDOMEN: No hepatosplenomegaly, normal bowel sounds, no guarding or rigidity. SKIN: No rashes CENTRAL NERVOUS SYSTEM: No focal deficits. EXTREMITIES: No cyanosis, clubbing or edema. - Labs CBC & Chem 7: 06/13/19 06:15 06/13/19 06:15 Labs: Abnormal Lab Results - Last 24 Hours (Table) 06/12/19 06/12/19 06/12/19 Range/Units 06:31 08:26 11:05 RBC (4.30-5.90) m/uL Hgb (13.0-17.5) gm/dL Hct (39.0-53.0) % Sodium (137-145) mmol/L Chloride (98-107) mmol/L Carbon Dioxide (22-30) mmol/L Glucose (74-99) mg/dL POC Glucose (mg/dL) (75-99) mg/dL Hemoglobin A1c 7.3 H (4.0-6.0) % Plasma Lactic Acid Will 2.3 H* (0.7-2.0) mmol/L Calcium (8.4-10.2) mg/dL Troponin I 1.370 H* (0.000-0.034) ng/mL 06/12/19 06/12/19 06/12/19 Range/Units 13:50 16:44 17:40 RBC (4.30-5.90) m/uL Hgb (13.0-17.5) gm/dL Hct (39.0-53.0) % Sodium (137-145) mmol/L Chloride (98-107) mmol/L Carbon Dioxide (22-30) mmol/L Glucose (74-99) mg/dL POC Glucose (mg/dL) 203 H 188 H (75-99) mg/dL Hemoglobin A1c (4.0-6.0) % Plasma Lactic Acid Will 2.7 H* (0.7-2.0) mmol/L Calcium (8.4-10.2) mg/dL Troponin I (0.000-0.034) ng/mL 06/12/19 06/12/19 06/12/19 Range/Units 17:48 21:34 23:45 RBC (4.30-5.90) m/uL Hgb (13.0-17.5) gm/dL Hct (39.0-53.0) % Sodium (137-145) mmol/L Chloride (98-107) mmol/L Carbon Dioxide (22-30) mmol/L Glucose (74-99) mg/dL POC Glucose (mg/dL) 203 H (75-99) mg/dL Hemoglobin A1c (4.0-6.0) % Plasma Lactic Acid Will (0.7-2.0) mmol/L Calcium (8.4-10.2) mg/dL Troponin I 1.400 H* 1.390 H* (0.000-0.034) ng/mL 06/13/19 06/13/19 06/13/19 Range/Units 06:15 06:15 06:51 RBC 3.55 L (4.30-5.90) m/uL Hgb 10.2 L (13.0-17.5) gm/dL Hct 32.0 L (39.0-53.0) % Sodium 136 L (137-145) mmol/L Chloride 97 L (98-107) mmol/L Carbon Dioxide 31 H (22-30) mmol/L Glucose 278 H (74-99) mg/dL POC Glucose (mg/dL) 183 H (75-99) mg/dL Hemoglobin A1c (4.0-6.0) % Plasma Lactic Acid Will (0.7-2.0) mmol/L Calcium 7.6 L (8.4-10.2) mg/dL Troponin I (0.000-0.034) ng/mL Assessment and Plan (1) Sustained ventricular tachycardia Current Visit: Yes Status: Acute Code(s): I47.2 - VENTRICULAR TACHYCARDIA SNOMED Code(s): 316733980 (2) Ischemic cardiomyopathy Current Visit: Yes Status: Acute Code(s): I25.5 - ISCHEMIC CARDIOMYOPATHY SNOMED Code(s): 148996224 (3) Pulmonary edema Current Visit: Yes Status: Acute Code(s): J81.1 - CHRONIC PULMONARY EDEMA SNOMED Code(s): 52625168 (4) Coronary artery disease Current Visit: Yes Status: Acute Code(s): I25.10 - ATHSCL HEART DISEASE OF [place] CORONARY ARTERY W/O ANG PCTRS SNOMED Code(s): 75607435 Plan: Continue current medical therapy. We will switch to by mouth amiodarone and also start him on by mouth Lasix. Most probably this patient should be considered for stent placement of the RCA. Following that patient could be constricted for AICD implantation. Increase activity as tolerated
--- NOTE | 2019-06-13 10:32 | XR ---
EXAMINATION TYPE: XR chest 1V portable DATE OF EXAM: 06/13/2019 HISTORY: pulmonary edema. REFERENCE: Previous study dated 06/12/2019. FINDINGS: There is been improvement in the degree of edema. Pulmonary vasculature remains prominent. The heart is mildly prominent. I suspect a small right effusion. IMPRESSION: IMPROVING CHANGES OF PULMONARY EDEMA.
[2019-06-13] MEDS: AMIODARONE 200 MG TAB PO SCH ×2 (11:37→20:42)
[2019-06-13] MEDS: FUROSEMIDE 20 MG TAB PO SCH (11:37)
[2019-06-13 11:46] LABS: Glucose,Whole Blood 265 mg/dL (75-99)
--- NOTE | 2019-06-13 14:36 | P.PN ---
Subjective Progress Note Date: 06/13/19 Principal diagnosis: STEMI 53-year-old male patient with history of diabetes and hypertension transferred from [facility] with acute STEMI; patient was admitted with nausea and abdominal pain with stable EKG at time of admission but later developed episode of tachycardia and was given adenosine which was unsuccessful; patient eventually converted back to sinus rhythm at which time EKG showed ST elevation in anterior leads and was transferred to our facility for further evaluation and treatment Upon arrival to the facility patient was directly taken to [facility]; Cardiac catheterization showed total occlusion of proximal LAD for which patient underwent successful stenting and is subsequently transferred to ICU for continued close monitoring 06/13/19 Patient had a cardiac catheterization and was found to have total occlusion of the LAD and 90% stenosis of the RCA. Patient had stent placement of the LAD. Patient had another bout of wide complex tachycardia yesterday requiring heart impression. Appears to be ventricular tachycardia. Currently patient is on IV amiodarone. He is also on dual antiplatelet agents along with beta janiya, TANISHA inhibitor and diuretics. He chest x-rays to show pulmonary edema. Today is fee ling better. It appears that patient diary segmental. His blood pressures more stable. We'll going to add Lasix 20 may gram once daily. Patient is switched to by mouth amiodarone. Most probably related stent placement of the RCA and subsequently should be considered for prophylactic AICD. Prognosis is guarded Has been having mild nosebleeds a self-limiting; hemoglobin is 10.2 this morning which is down from 11 yesterday; we will continue to monitor H&H Blood sugars are elevated between 183-203; patient has been receiving amiodarone and dextrose-based solution; we will continue to monitor Accu-Cheks and make adjustments if blood sugars remain elevated Objective - Vital Signs Vital signs: Vital Signs Temp 99.7 F H 06/13/19 04:00 Pulse 101 H 06/13/19 09:01 Resp 24 06/13/19 09:01 BP 115/69 06/13/19 09:01 Pulse Ox 97 06/13/19 09:01 Intake & Output 06/12/19 06/13/19 06/13/19 18:59 06:59 18:59 Intake Total 440 740.834 40 Output Total 3095 695 130 Balance -2655 45.834 -90 Weight 91 kg 96.3 kg Intake: IV 365 240 40 Sodium Chloride 0.9% 1, 365 240 40 000 ml @ 20 mls/hr IV . Q24H BRAD Rx#:[id number] Intake, IV Titration 75 400.834 Amount Amiodarone 300 mg In 200.834 Dextrose 5% in Water 250 ml @ 0.5 MG/MIN 25 mls/hr IV .Q10H BRAD Rx#: [id number] Potassium Chloride 10 meq 200 In Water For Injection 1 100ml.bag @ 100 mls/hr IVPB Q1H BRAD Rx#: [id number] Sodium Chloride 0.9% 1, 75 000 ml @ 20 mls/hr IV . Q24H BRAD Rx#:[id number] Oral 100 Output: Urine 3095 695 130 Other: Voiding Method Indwelling Catheter Indwelling Catheter - Exam PHYSICAL EXAMINATION: GENERAL: The patient is alert and oriented x3, not in any acute distress. Well developed, well nourished. HEENT: Pupils are round and equally reacting to light. EOMI. No scleral icterus. No conjunctival pallor. Normocephalic, atraumatic. No pharyngeal erythema. No thyromegaly. CARDIOVASCULAR: S1 and S2 present. No murmurs, rubs, or gallops. PULMONARY: Chest is clear to auscultation, no wheezing or crackles. ABDOMEN: Soft, nontender, nondistended, normoactive bowel sounds. No palpable organomegaly. MUSCULOSKELETAL: No joint swelling or deformity. EXTREMITIES: No cyanosis, clubbing, or pedal edema. NEUROLOGICAL: Gross neurological examination did not reveal any focal deficits. SKIN: No rashes. - Labs CBC & Chem 7: 06/13/19 06:15 06/13/19 06:15 Labs: Abnormal Lab Results - Last 24 Hours (Table) 06/12/19 06/12/19 06/12/19 Range/Units 06:31 11:05 13:50 RBC (4.30-5.90) m/uL Hgb (13.0-17.5) gm/dL Hct (39.0-53.0) % Sodium (137-145) mmol/L Chloride (98-107) mmol/L Carbon Dioxide (22-30) mmol/L Glucose (74-99) mg/dL POC Glucose (mg/dL) (75-99) mg/dL Hemoglobin A1c 7.3 H (4.0-6.0) % Plasma Lactic Acid Will 2.7 H* (0.7-2.0) mmol/L Calcium (8.4-10.2) mg/dL Troponin I 1.370 H* (0.000-0.034) ng/mL 06/12/19 06/12/19 06/12/19 Range/Units 16:44 17:40 17:48 RBC (4.30-5.90) m/uL Hgb (13.0-17.5) gm/dL Hct (39.0-53.0) % Sodium (137-145) mmol/L Chloride (98-107) mmol/L Carbon Dioxide (22-30) mmol/L Glucose (74-99) mg/dL POC Glucose (mg/dL) 203 H 188 H (75-99) mg/dL Hemoglobin A1c (4.0-6.0) % Plasma Lactic Acid Will (0.7-2.0) mmol/L Calcium (8.4-10.2) mg/dL Troponin I 1.400 H* (0.000-0.034) ng/mL 06/12/19 06/12/19 06/13/19 Range/Units 21:34 23:45 06:15 RBC 3.55 L (4.30-5.90) m/uL Hgb 10.2 L (13.0-17.5) gm/dL Hct 32.0 L (39.0-53.0) % Sodium (137-145) mmol/L Chloride (98-107) mmol/L Carbon Dioxide (22-30) mmol/L Glucose (74-99) mg/dL POC Glucose (mg/dL) 203 H (75-99) mg/dL Hemoglobin A1c (4.0-6.0) % Plasma Lactic Acid Will (0.7-2.0) mmol/L Calcium (8.4-10.2) mg/dL Troponin I 1.390 H* (0.000-0.034) ng/mL 06/13/19 06/13/19 Range/Units 06:15 06:51 RBC (4.30-5.90) m/uL Hgb (13.0-17.5) gm/dL Hct (39.0-53.0) % Sodium 136 L (137-145) mmol/L Chloride 97 L (98-107) mmol/L Carbon Dioxide 31 H (22-30) mmol/L Glucose 278 H (74-99) mg/dL POC Glucose (mg/dL) 183 H (75-99) mg/dL Hemoglobin A1c (4.0-6.0) % Plasma Lactic Acid Will (0.7-2.0) mmol/L Calcium 7.6 L (8.4-10.2) mg/dL Troponin I (0.000-0.034) ng/mL Assessment and Plan Assessment: 1. Wide complex tachycardia/V. tach - Patient remains on IV amiodarone infusion and metoprolol - 2-D echocardiogram is done and shows severe cardiomyopathy with EF of 30-35% 2. Acute ST elevation [place]; patient is status post cardiac catheterization with stenting of proximal LAD; Also showed severe disuse to RCA; he will continue with dual antiplatelet therapy, statins and beta blockers; tanisha inhibitors and Aldactone to resume once blood pressure is stable 3. Acute exacerbation of systolic CHF; as indicated EF is 30-35%; patient received Lasix 40 mg IV 1; cardiology is following and will make further rec ommendations; we will continue to monitor strict GALLO's, daily weights; continue with fluid restricted and low salt diet 4. Diabetes mellitus; monitor Accu-Cheks every before meals and at bedtime with insulin sliding scale protocol 5. Hyperlipidemia; continue with statin therapy with Lipitor 80 mg daily at bedtime 6. Hypothyroidism; levothyroxin 25 MCG daily 7. DVT prophylaxis; dual antiplatelet therapy/ SCDs CODE STATUS; full code Time with Patient: Greater than 30
[2019-06-13 16:55] LABS: Glucose,Whole Blood 269 mg/dL (75-99)
[2019-06-13] MEDS: FLUTICASONE 50MCG/SPRAY NASAL 16GM EA NOSTRIL PRN (17:48)
[2019-06-13] MEDS: ATORVASTATIN 80 MG TAB PO SCH (20:42)
[2019-06-13] MEDS: ALPRAZolam 0.5 MG TAB PO PRN (20:42)
[2019-06-13 20:43] LABS: Glucose,Whole Blood 220 mg/dL (75-99)
[2019-06-14] MEDS: LEVOTHYROXINE 25 MCG TAB PO SCH (06:16)
[2019-06-14 06:52] LABS: HCT 31.1 % (39.0-53.0); Hypochromasia Slight; MCH 28.9 pg (25.0-35.0); MCHC 32.2 g/dL (31.0-37.0); Mean Platelet Volume 7.2; Platelet Count 217 k/uL (150-450); Poikilocytosis Slight; RBC 3.46 m/uL (4.30-5.90); RDW 14.9 % (11.5-15.5); WBC 7.6 k/uL (3.8-10.6)
[2019-06-14 06:53] LABS: African American GFR (CKD) >90 (>60 ml/min/1.73 sqM); Anion Gap 7 mmol/L; Blood Urea Nitrogen 17 mg/dL (9-20); Calcium 8.2 mg/dL (8.4-10.2); Carbon Dioxide 31 mmol/L (22-30); Chloride 101 mmol/L (98-107); Glucose 141 mg/dL (74-99); Non-African American GFR(CKD) >90 (>60 ml/min/1.73 sqM); Potassium 3.8 mmol/L (3.5-5.1); Sodium 139 mmol/L (137-145)
[2019-06-14 06:57] LABS: Glucose,Whole Blood 142 mg/dL (75-99)
[2019-06-14] MEDS ORDERED: Potassium Replacement Protocol 1 EACH MISC MISCELLANE PRN (06:57)
[2019-06-14] MEDS ORDERED: POTASSIUM CHLORIDE ER 20 MEQ TAB.ER PO SCH (07:00)
[2019-06-14] MEDS: ASPIRIN 81 MG PO SCH (08:54)
[2019-06-14] MEDS: DULoxetine HCL 60 MG CAPSULE.DR PO SCH (08:54)
[2019-06-14] MEDS: PANTOPRAZOLE 40 MG TABLET PO SCH (08:55)
[2019-06-14] MEDS: FUROSEMIDE 20 MG TAB PO SCH (08:55)
[2019-06-14] MEDS: AMIODARONE 200 MG TAB PO SCH ×2 (08:56→20:42)
[2019-06-14] MEDS: LISINOPRIL 2.5 MG TAB PO SCH (08:56)
[2019-06-14] MEDS: TICAGRELOR 90 MG TAB PO SCH ×2 (08:56→20:42)
--- NOTE | 2019-06-14 08:58 | P.PN ---
Subjective Progress Note Date: 06/14/19 This patient was admitted was limited episodes of shortness of breath and palpitations. Patient was found to have arrhythmiaa, most probably ventricular tachycardia. His EKG on admission showed QS pattern in the anterior leads with ST elevation. Patient had a cardiac catheterization and was found to have total occlusion of the LAD and 90% stenosis of the RCA. Patient had stent placement of the LAD. Patient had another bout of wide complex tachycardia yesterday requiring heart impression. Appears to be ventricular tachycardia. Currently patient is on IV amiodarone. He is also on dual antiplatelet agents along with beta janiya, TANISHA inhibitor and diuretics. He chest x-rays to show pulmonary edema. Today is feeling better. It appears that patient diary segmental. His blood pressures more stable. We'll going to add Lasix 20 may gram once daily. Will switch to by mouth amiodarone. Most probably related stent placement of the RCA and subsequently should be considered for prophylactic AICD. Prognosis is guarded. 05/14/2090: This patient was admitted with what looks segment ventricular tachycardia with EKG evidence of ST elevation in anterior leads felt to be acute myocardial infarction. Cardiac catheterization didn't reveal total occlusion of the LAD and 90% stenosis of the RCA. Patient had stent placement of the chronically occluded LAD. It appeared that from the enzyme elevation pattern and critical picture, his primary presentation is intact ventricular tachycardia with possible previous myocardial infarction. It doesn't appear that patient had acute myocardial infarction. Patient had subsequent ventricle tachycardia requiring cardioversion. Patient is currently on amiodarone and maintaining sinus rhythm. Patient's CHF is cleared and chest x-ray shows clearing of the pulmonary edema. Patient is clinically stable and feeling better. Denies any chest pain or shortness of breath. No further arrhythmias. At this point I would recommend that we do stent placement of the RCA and then consider for AICD placement, before discharge. I will discuss with the Dr. Ovalle and Dr. Vincent Objective - Vital Signs Vital signs: Vital Signs Temp 97.8 F 06/14/19 08:00 Pulse 90 06/14/19 08:00 Resp 34 H 06/14/19 08:00 BP 102/75 06/14/19 08:00 Pulse Ox 93 L 06/14/19 08:00 Intake & Output 06/13/19 06/14/19 06/14/19 18:59 06:59 18:59 Intake Total 860 150 0 Output Total 740 750 120 Balance 120 -600 -120 Weight 96.8 kg Intake: IV 160 0 0 Sodium Chloride 0.9% 1, 160 0 0 000 ml @ 20 mls/hr IV . Q24H [facility] Rx#:[id number] Intake, IV Titration 200 Amount Potassium Chloride 10 meq 200 In Water For Injection 1 100ml.bag @ 100 mls/hr IVPB Q1H [facility] Rx#: [id number] Oral 500 150 Output: Urine 740 750 120 Other: Voiding Method Indwelling Catheter Indwelling Catheter # Bowel Movements 1 1 - Exam GENERAL EXAM: Patient is alert and oriented and doesn't appear to be in any acute distress HEENT: Normocephalic. Normal reaction of pupils, equal size, normal range of extraocular motion. No erythema or exudates in the throat. NECK: No masses, no nuchal rigidity. CHEST: No chest wall deformity. LUNGS: Diminished breath sounds at bases HEART: S1 and S2 normal with no audible mumurs or gallops. Regular rhythm, femorals equal on both sides.. ABDOMEN: No hepatosplenomegaly, normal bowel sounds, no guarding or rigidity. SKIN: No rashes CENTRAL NERVOUS SYSTEM: No focal deficits. EXTREMITIES: No cyanosis, clubbing or edema. - Labs CBC & Chem 7: 06/14/19 06:10 06/14/19 06:10 Labs: Abnormal Lab Results - Last 24 Hours (Table) 06/13/19 06/13/19 06/13/19 Range/Units 11:35 16:43 20:32 RBC (4.30-5.90) m/uL Hgb (13.0-17.5) gm/dL Hct (39.0-53.0) % Carbon Dioxide (22-30) mmol/L Glucose (74-99) mg/dL POC Glucose (mg/dL) 265 H 269 H 220 H (75-99) mg/dL Calcium (8.4-10.2) mg/dL 06/14/19 06/14/19 06/14/19 Range/Units 06:10 06:10 06:56 RBC 3.46 L (4.30-5.90) m/uL Hgb 10.0 L (13.0-17.5) gm/dL Hct 31.1 L (39.0-53.0) % Carbon Dioxide 31 H (22-30) mmol/L Glucose 141 H (74-99) mg/dL POC Glucose (mg/dL) 142 H (75-99) mg/dL Calcium 8.2 L (8.4-10.2) mg/dL Assessment and Plan (1) Sustained ventricular tachycardia Current Visit: Yes Status: Acute Code(s): I47.2 - VENTRICULAR TACHYCARDIA SNOMED Code(s): 655767977 (2) Ischemic cardiomyopathy Current Visit: Yes Status: Acute Code(s): I25.5 - ISCHEMIC CARDIOMYOPATHY SNOMED Code(s): 281376991 (3) Pulmonary edema Current Visit: Yes Status: Acute Code(s): J81.1 - CHRONIC PULMONARY EDEMA SNOMED Code(s): 52360745 (4) Coronary artery disease Current Visit: Yes Status: Acute Code(s): I25.10 - ATHSCL HEART DISEASE OF COUNCIL CORONARY ARTERY W/O ANG PCTRS SNOMED Code(s): 51955250 Plan: Patient is critically stable. No further episodes of V. tach. We'll can incre ase his activity and transfer to stepdown unit. I will discuss with the Dr. Ovalle regarding stent placement of the RCA and also the possibility of AICD before discharge.
[2019-06-14] MEDS: BRIMONIDINE TARTRATE 0.2% DROPS 5 ML BTL BOTH EYES SCH ×2 (09:02→20:47)
[2019-06-14] MEDS: INSULIN ASPART (NovoLOG) 100 UNIT/ML VIAL SQ SCH ×4 (09:03→20:41)
[2019-06-14] MEDS: METOPROLOL TARTRATE 25 MG TAB PO SCH (09:05)
[2019-06-14] MEDS: SPIRONOLACTONE 25 MG TAB PO SCH (09:05)
[2019-06-14] MEDS: LORATADINE 10 MG TAB PO SCH (09:05)
[2019-06-14 11:42] LABS: Glucose,Whole Blood 209 mg/dL (75-99)
--- NOTE | 2019-06-14 14:53 | P.PN ---
Subjective Progress Note Date: 06/14/19 Principal diagnosis: STEMI 53-year-old male patient with history of diabetes and hypertension transferred from [facility] with acute STEMI; patient was admitted with nausea and abdominal pain with stable EKG at time of admission but later developed episode of tachycardia and was given adenosine which was unsuccessful; patient eventually converted back to sinus rhythm at which time EKG showed ST elevation in anterior leads and was transferred to our facility for further evaluation and treatment Upon arrival to the facility patient was directly taken to Cardiology Nurse Practitioner; Cardiac catheterization showed total occlusion of proximal LAD for which patient underwent successful stenting and is subsequently transferred to ICU for continued close monitoring 06/13/19 Patient had a cardiac catheterization and was found to have total occlusion of the LAD and 90% stenosis of the RCA. Patient had stent placement of the LAD. Patient had another bout of wide complex tachycardia yesterday requiring heart impression. Appears to be ventricular tachycardia. Currently patient is on IV amiodarone. He is also on dual antiplatelet agents along with beta janiya, TANISHA inhibitor and diuretics. He chest x-rays to show pulmonary edema. Today is fee ling better. It appears that patient diary segmental. His blood pressures more stable. We'll going to add Lasix 20 may gram once daily. Patient is switched to by mouth amiodarone. Most probably related stent placement of the RCA and subsequently should be considered for prophylactic AICD. Prognosis is guarded Has been having mild nosebleeds a self-limiting; hemoglobin is 10.2 this morning which is down from 11 yesterday; we will continue to monitor H&H Blood sugars are elevated between 183-203; patient has been receiving amiodarone and dextrose-based solution; we will continue to monitor Accu-Cheks and make adjustments if blood sugars remain elevated 06/14/2019 Patient is seen and evaluated in room at bedside; patient complains of nasal congestion and requesting a decongestant; no further nosebleeds Cardiology is following and at this point entertaining a possible stent placement to RCA and AICD placement prior to discharge; blood sugars remain elevated ranging between 140-220 with sliding scale coverage; we will start patient on Levemir 10 units subcu daily at bedtime and resume Accu-Cheks with sliding scale; patient reports no further nosebleeds and hemoglobin remained stable at 10 Objective - Vital Signs Vital signs: Vital Signs Temp 97.8 F 06/14/19 08:00 Pulse 90 11/17/19 08:00 Resp 34 H 06/14/19 08:00 BP 102/75 06/14/19 08:00 Pulse Ox 93 L 06/14/19 08:00 Intake & Output 06/13/19 06/14/19 06/14/19 18:59 06:59 18:59 Intake Total 860 150 0 Output Total 740 750 180 Balance 120 -600 -180 Weight 96.8 kg Intake: IV 160 0 0 Sodium Chloride 0.9% 1, 160 0 0 000 ml @ 20 mls/hr IV . Q24H [facility] Rx#:[id number] Intake, IV Titration 200 Amount Potassium Chloride 10 meq 200 In Water For Injection 1 100ml.bag @ 100 mls/hr IVPB Q1H [facility] Rx#: [id number] Oral 500 150 Output: Urine 740 750 180 Other: Voiding Method Indwelling Catheter Indwelling Catheter Indwelling Catheter # Bowel Movements 1 1 - Exam PHYSICAL EXAMINATION: GENERAL: The patient is alert and oriented x3, not in any acute distress. Well developed, well nourished. HEENT: Pupils are round and equally reacting to light. EOMI. No scleral icterus. No conjunctival pallor. Normocephalic, atraumatic. No pharyngeal erythema. No thyromegaly. CARDIOVASCULAR: S1 and S2 present. No murmurs, rubs, or gallops. PULMONARY: Chest is clear to auscultation, no wheezing or crackles. ABDOMEN: Soft, nontender, nondistended, normoactive bowel sounds. No palpable organomegaly. MUSCULOSKELETAL: No joint swelling or deformity. EXTREMITIES: No cyanosis, clubbing, or pedal edema. NEUROLOGICAL: Gross neurological examination did not reveal any focal deficits. SKIN: No rashes. - Labs CBC & Chem 7: 06/14/19 06:10 06/14/19 06:10 Labs: Abnormal Lab Results - Last 24 Hours (Table) 06/13/19 06/13/19 06/13/19 Range/Units 11:35 16:43 20:32 RBC (4.30-5.90) m/uL Hgb (13.0-17.5) gm/dL Hct (39.0-53.0) % Carbon Dioxide (22-30) mmol/L Glucose (74-99) mg/dL POC Glucose (mg/dL) 265 H 269 H 220 H (75-99) mg/dL Calcium (8.4-10.2) mg/dL 06/14/19 06/14/19 06/14/19 Range/Units 06:10 06:10 06:56 RBC 3.46 L (4.30-5.90) m/uL Hgb 10.0 L (13.0-17.5) gm/dL Hct 31.1 L (39.0-53.0) % Carbon Dioxide 31 H (22-30) mmol/L Glucose 141 H (74-99) mg/dL POC Glucose (mg/dL) 142 H (75-99) mg/dL Calcium 8.2 L (8.4-10.2) mg/dL Assessment and Plan Assessment: 1. Wide complex tachycardia/V. tach - Patient remains on IV amiodarone infusion and metoprolol - 2-D echocardiogram is done and shows severe cardiomyopathy with EF of 30-35% 2. Acute ST elevation DE; patient is status post cardiac catheterization with stenting of proximal LAD; Also showed severe disuse to RCA; he will continue with dual antiplatelet therapy, statins and beta blockers; tanisha inhibitors and Aldactone to resume once blood pressure is stable 3. Acute exacerbation of systolic CHF; as indicated EF is 30-35%; patient received Lasix 40 mg IV 1; cardiology is following and will make further recommendations; we will continue to monitor strict GALLO's, daily weights; continue with fluid restricted and low salt diet 4. Diabetes mellitus; monitor Accu-Cheks every before meals and at bedtime with insulin sliding scale protocol 5. Hyperlipidemia; continue with statin therapy with Lipitor 80 mg daily at bedtime 6. Hypothyroidism; levothyroxin 25 MCG daily 7. DVT prophylaxis; dual antiplatelet therapy/ SCDs CODE STATUS; full code Time with Patient: Greater than 30
[2019-06-14] MEDS ORDERED: guaiFENesin-DM 600/30MG 1 EACH TAB.ER.12H PO PRN (14:54)
[2019-06-14 16:51] LABS: Glucose,Whole Blood 186 mg/dL (75-99)
[2019-06-14] MEDS: ATORVASTATIN 80 MG TAB PO SCH (20:41)
[2019-06-14] MEDS: ALPRAZolam 0.5 MG TAB PO PRN (20:46)
[2019-06-14 20:47] LABS: Glucose,Whole Blood 198 mg/dL (75-99)
[2019-06-14] MEDS: METOPROLOL TARTRATE 12.5 MG TAB PO SCH (22:18)
[2019-06-15] MEDS: METOPROLOL TARTRATE 25 MG TAB PO SCH (05:01)
[2019-06-15] MEDS: INSULIN ASPART (NovoLOG) 100 UNIT/ML VIAL SQ SCH ×4 (06:37→20:20)
[2019-06-15] MEDS: LEVOTHYROXINE 25 MCG TAB PO SCH (06:37)
[2019-06-15] MEDS: PANTOPRAZOLE 40 MG TABLET PO SCH (06:37)
[2019-06-15 06:44] LABS: Glucose,Whole Blood 222 mg/dL (75-99)
[2019-06-15] MEDS ORDERED: INSULIN DETEMIR (LEVEMIR) 100 UNIT/ML SYR SQ SCH (07:00)
--- NOTE | 2019-06-15 07:35 | P.PN ---
Subjective Progress Note Date: 06/15/19 Principal diagnosis: Acute coronary syndrome This is a pleasant 53-year-old gentleman with a past medical history significant for diabetes, hypertension, dyslipidemia, presented to the hospital with chest discomfort and was diagnosed with acute coronary syndrome. He underwent an emergent heart catheterization and stenting of the LAD. On presentation and the following day after stenting he did have an episode of V. tach. The patient subsequently was started on amiodarone IV. The echo revealed impaired LV function was EF between 30-35% with anteroapical hypokinesia. The patient was seen today, 06/15/2019, overall he is asymptomatic from the cardiovascular standpoint of view. He denies any chest pain or chest discomfort, shortness of breath, dizziness, heart racing. He remains hemodynamically stable beside marginally low blood pressure and the dose of metoprolol was decreased yesterday. He is slightly tachycardic with a resting heart rate between 80-90 bpm. He is on amiodarone by mouth. No more episodes of sustained ventricular tachycardia over the weekend. The plan is to proceed with AICD either before or after PCI of the RCA. Objective - Vital Signs Vital signs: Vital Signs Temp 98.0 F 06/15/19 04:00 Pulse 90 06/15/19 04:00 Resp 14 06/15/19 04:00 BP 97/63 06/15/19 04:00 Pulse Ox 95 06/15/19 04:00 Intake & Output 06/14/19 06/15/19 06/15/19 18:59 06:59 18:59 Intake Total 450 640 Output Total 490 Balance -40 640 Weight 93 kg Intake: IV 0 Sodium Chloride 0.9% 1, 0 000 ml @ 20 mls/hr IV . Q24H [facility] Rx#:[id number] Oral 450 640 Output: Urine 490 Other: Voiding Method Indwelling Catheter Indwelling Catheter # Voids 1 - Constitutional General appearance: Present: no acute distress - Respiratory Respiratory: bilateral: CTA - Cardiovascular Rhythm: regular Heart sounds: normal: S1, S2 - Labs CBC & Chem 7: 06/14/19 06:10 06/14/19 06:10 Labs: Abnormal Lab Results - Last 24 Hours (Table) 06/14/19 06/14/19 06/14/19 Range/Units 11:31 16:39 20:35 POC Glucose (mg/dL) 209 H 186 H 198 H (75-99) mg/dL 06/15/19 Range/Units 06:32 POC Glucose (mg/dL) 222 H (75-99) mg/dL Assessment and Plan Assessment: Assessment #[address] elevation myocardial infarction #2 status post PCI of the LAD #3 severe disease involving the RCA #4 sustained V. tach #5 impaired LV function Plan #1 continue the current medical regimen #2 agree to decrease the dose of metoprolol in view of the low blood pressure #3 continue dual antiplatelet therapy along with high intensity statin #4 continue beta janiya as well as TANISHA inhibitor #5 continue Aldactone #6 proceed with AICD
[2019-06-15] MEDS: FUROSEMIDE 20 MG TAB PO SCH (10:46)
[2019-06-15] MEDS: LISINOPRIL 2.5 MG TAB PO SCH (10:46)
[2019-06-15] MEDS: LORATADINE 10 MG TAB PO SCH (10:46)
[2019-06-15] MEDS: SPIRONOLACTONE 25 MG TAB PO SCH (10:46)
[2019-06-15] MEDS: ASPIRIN 81 MG PO SCH (10:46)
[2019-06-15] MEDS: DULoxetine HCL 60 MG CAPSULE.DR PO SCH (10:46)
[2019-06-15] MEDS: TICAGRELOR 90 MG TAB PO SCH ×2 (10:47→20:19)
[2019-06-15] MEDS: FLUTICASONE 50MCG/SPRAY NASAL 16GM EA NOSTRIL PRN (10:47)
[2019-06-15] MEDS: AMIODARONE 200 MG TAB PO SCH ×2 (10:47→20:19)
[2019-06-15] MEDS: METOPROLOL TARTRATE 12.5 MG TAB PO SCH ×2 (10:47→21:44)
[2019-06-15] MEDS: BRIMONIDINE TARTRATE 0.2% DROPS 5 ML BTL BOTH EYES SCH ×2 (10:48→20:25)
[2019-06-15 11:27] VITALS: BMI 30.2
[2019-06-15 11:57] LABS: Glucose,Whole Blood 162 mg/dL (75-99)
[2019-06-15] MEDS ORDERED: SODIUM CHLORIDE 0.9% 1,000 ML in EMPTY BAG 1 BAG IV ONE (12:57)
[2019-06-15] MEDS ORDERED: NITROGLYCERIN SL TABS 0.4 MG TAB SUBLINGUAL PRN (12:57)
[2019-06-15] MEDS ORDERED: ALPRAZolam 0.25 MG TAB PO PRN (12:57)
[2019-06-15] MEDS ORDERED: ALPRAZolam 0.5 MG TAB PO PRN (12:57)
[2019-06-15 16:53] LABS: Glucose,Whole Blood 185 mg/dL (75-99)
--- NOTE | 2019-06-15 17:07 | P.PN ---
Subjective from records: 53-year-old male patient with history of diabetes and hypertension transferred from [facility] with acute STEMI; patient was admitted with nausea and abdominal pain with stable EKG at time of admission but later develop ed episode of tachycardia and was given adenosine which was unsuccessful; patient eventually converted back to sinus rhythm at which time EKG showed ST elevation in anterior leads and was transferred to our facility for further evaluation and treatment Upon arrival to the facility patient was directly taken to Auditor; Cardiac catheterization showed total occlusion of proximal LAD for which patient underwent successful stenting and is subsequently transferred to ICU for continued close monitoring 06/13/19 Patient had a cardiac catheterization and was found to have total occlusion of the LAD and 90% stenosis of the RCA. Patient had stent placement of the LAD. Patient had another bout of wide complex tachycardia yesterday requiring heart impression. Appears to be ventricular tachycardia. Currently patient is on IV amiodarone. He is also on dual antiplatelet agents along with beta janiya, TANISHA inhibitor and diuretics. He chest x-rays to show pulmonary edema. Today is feeling better. It appears that patient diary segmental. His blood pressures more stable. We'll going to add Lasix 20 may gram once daily. Patient is switched to by mouth amiodarone. Most probably related stent placement of the RCA and subsequently should be considered for prophylactic AICD. Prognosis is guarded Has been having mild nosebleeds a self-limiting; hemoglobin is 10.2 this morning which is down from 11 yesterday; we will continue to monitor H&H Blood sugars are elevated between 183-203; patient has been receiving amiodarone and dextrose-based solution; we will continue to monitor Accu-Cheks and make adjustments if blood sugars remain elevated 06/14/2019 Patient is seen and evaluated in room at bedside; patient complains of nasal congestion and requesting a decongestant; no further nosebleeds Cardiology is following and at this point entertaining a possible stent placement to RCA and AICD placement prior to discharge; blood sugars remain elevated ranging between 140-220 with sliding scale coverage; we will start patient on Levemir 10 units subcu daily at bedtime and resume Accu-Cheks with sliding scale; patient reports no further nosebleeds and hemoglobin remained stable at 10 subjective pt is seen today in the ICU , no chest pain of dyspnea , completely awake , vitals looks stable . sugar is controlled. no labs from today . however CBC and BMP from yesterday are reviewed , we will check labs tomorrow as well. cardiology are following the case closely , and they plan for angiogram for his right coronary artery with possible stenting and to be associated with AICD solo cement as per design project manager note. no more ventricluar tachycardia, however we will keep close monitoring in the ICU as pt is still at some risk Review of Systems CONSTITUTIONAL: negative. RESPIRATORY: Negative. CARDIOVASCULAR: Negative. GASTROINTESTINAL: Negative. GENITOURINARY: Negative. INTEGUMENT/BREAST: Negative. MUSCULOSKELETAL: Negative. NEUROLOGICAL: Negative. Active Medications Generic Name Dose Route Start Last Admin Trade Name Freq PRN Reason Stop Dose Admin Al Hydroxide/Mg Hydroxide 30 ml 06/12/19 05:39 Maalox PO Q4HR PRN Heartburn Alprazolam 0.25 mg 06/15/19 12:57 Xanax PO Q6HR PRN Mild Anxiety Alprazolam 0.5 mg 06/15/19 12:57 Xanax PO Q6HR PRN Moderate Anxiety Amiodarone HCl 400 mg 06/13/19 12:00 06/15/19 10:47 Cordarone PO 400 mg BID BRAD Administration Aspirin 325 mg 06/16/19 06:00 Aspirin PO 06/16/19 06:01 ONCE ONE Aspirin 81 mg 06/17/19 09:00 Aspirin PO DAILY BRAD Atorvastatin Calcium 80 mg 06/12/19 21:00 06/14/19 20:41 Lipitor PO 80 mg HS BRAD Administration Atorvastatin Calcium 80 mg 06/16/19 06:00 Lipitor PO 06/16/19 06:01 ONCE ONE Atropine Sulfate 0.5 mg 06/12/19 05:39 Atropine IV ONCE PRN Symptomatic Bradycardia Brimonidine Tartrate 1 drops 06/12/19 21:00 06/15/19 10:48 Alphagan P 0.2% Ophth Soln BOTH EYES 1 drops BID BRAD Administration Diclofenac Sodium 5 gm 06/12/19 15:40 Voltaren Gel TOPICAL QID PRN PAIN IN WRISTS AND HANDS Duloxetine HCl 60 mg 06/13/19 09:00 06/15/19 10:46 Cymbalta PO 60 mg QAM BRAD Administration Fluticasone Propionate 2 spray 06/12/19 15:40 06/15/19 10:47 Flonase Nasal [place] EA NOSTRIL 2 spray TID PRN Administration ALLERGY Furosemide 20 mg 06/13/19 09:45 06/15/19 10:46 Lasix PO 20 mg DAILY [facility]AD Administration Guaifenesin/Dextromethorphan 1 each 06/14/19 14:54 06/14/19 16:46 Mucinex Dm PO 1 each Q12HR PRN Administration Nasal Congestion Sodium Chloride 1,000 ml/ IV 1,000 mls @ 93 mls/hr 06/15/19 12:57 Solution IV 06/15/19 23:42 .[id number] ONE 1 ML/KG/HR Insulin Aspart 0 unit 06/12/19 17:30 06/15/19 15:32 Novolog SQ Not Given ACHS [facility] Protocol Insulin Detemir 10 unit 06/15/19 07:00 06/15/19 06:37 Levemir SQ 10 unit DAILY@0700 BRAD Administration Levothyroxine Sodium 25 mcg 06/13/19 06:30 06/15/19 06:37 Synthroid PO 25 mcg DAILY@0630 [facility] Administration Lisinopril 2.5 mg 06/12/19 09:00 06/15/19 10:46 Zestril PO 2.5 mg DAILY [facility]AD Administration Loratadine 10 mg 06/13/19 09:00 06/15/19 10:46 Claritin PO 10 mg DAILY [facility]AD Administration Metoprolol Tartrate 12.5 mg 06/14/19 21:00 06/15/19 10:47 Lopressor PO 12.5 mg BID BRAD Administration Miscellaneous Information 1 each 06/13/19 01:50 Potassium Per Protocol MISCELLANE DAILY PRN Per Protocol Protocol Miscellaneous Information 1 each 06/14/19 06:57 Potassium Per Protocol MISCELLANE DAILY PRN Per Protocol Protocol Nitroglycerin 0.4 mg 06/12/19 05:39 Nitrostat SUBLINGUAL Q5M PRN Chest Pain (Dasatinib [Sprycel] 100 mg 06/14/19 11:44 06/14/19 16:46 100 Mg) PO 100 mg DAILY@1700 BRAD Administration Pantoprazole Sodium 40 mg 06/13/19 07:30 06/15/19 06:37 Protonix PO 40 mg AC-BRKFST BRAD Administration Spironolactone 25 mg 06/12/19 09:00 06/15/19 10:46 Aldactone PO 25 mg DAILY BRAD Administration Ticagrelor 90 mg 06/12/19 09:00 06/15/19 10:47 Brilinta PO 90 mg BID BRAD Administration Zolpidem Tartrate 5 mg 06/12/19 05:39 06/13/19 23:11 Ambien PO 5 mg HS PRN Administration Insomnia Objective - Vital Signs Vital signs: Vital Signs Temp 98.2 F 06/15/19 08:00 Pulse 86 06/15/19 10:00 Resp 32 H 06/15/19 10:00 BP 97/63 06/15/19 10:00 Pulse Ox 97 06/15/19 08:00 Intake & Output 06/14/19 06/15/19 06/15/19 18:59 06:59 18:59 Intake Total 450 640 680 Output Total 490 Balance -40 640 680 Weight 93 kg 93 kg Intake: IV 0 Sodium Chloride 0.9% 1, 0 000 ml @ 20 mls/hr IV . Q24H [facility] Rx#:[id number] Oral 450 640 680 Output: Urine 490 Other: Voiding Method Indwelling Catheter Indwelling Catheter Indwelling Catheter # Voids 1 - Exam HEENT: Head is atraumatic, normocephalic. Pupils equal, round. Neck is supple. There is no elevated jugular venous pressure. HEART EXAMINATION: Heart S1-S2, no murmur is heard CHEST EXAMINATION: Lungs reveal no expiratory wheezes throughout otherwise essentially clear. ABDOMEN: Soft, nontender. Bowel sounds are heard. No organomegaly noted. EXTREMITIES: 2+ peripheral pulses with no evidence of peripheral edema and no calf tenderness noted. NEUROLOGIC patient is awake, alert and oriented x3. no gross neurological defici t - Labs CBC & Chem 7: 06/14/19 06:10 06/14/19 06:10 Labs: Abnormal Lab Results - Last 24 Hours (Table) 06/14/19 06/15/19 06/15/19 Range/Units 20:35 06:32 11:45 POC Glucose (mg/dL) 198 H 222 H 162 H (75-99) mg/dL 06/15/19 Range/Units 16:41 POC Glucose (mg/dL) 185 H (75-99) mg/dL Assessment and Plan Assessment: -acute STEMI: patient is status post cardiac catheterization with stenting of proximal LAD; Also showed severe disuse to RCA; he will continue with dual antiplatelet therapy, statins and beta blockers; tanisha inhibitors and Aldactone to resume once blood pressure is stable -wide complex tachycardia suspicous for Mariya mckeon: continue with cardiology recommendation , currently on amiodarone and metoprolol -acute on chronic CHF with EF OF 30-35%, Pt is continue with the same medical therapy of metoprolol , lasix, strict input and output -diabetes mellitus -hyperlipidemia -hypothyroidism -DVT Px: on dual antiplatelet therapy/ SCDs prognosis is guarded
[2019-06-15] MEDS: ATORVASTATIN 80 MG TAB PO SCH (20:20)
[2019-06-15 20:26] LABS: Glucose,Whole Blood 189 mg/dL (75-99)
[2019-06-16] MEDS: ZOLPIDEM 5 MG TAB PO PRN (00:29)
[2019-06-16] MEDS: METOPROLOL TARTRATE 12.5 MG TAB PO SCH ×2 (05:25→21:27)
[2019-06-16] MEDS: LEVOTHYROXINE 25 MCG TAB PO SCH (05:26)
[2019-06-16] MEDS: AMIODARONE 200 MG TAB PO SCH ×2 (05:26→21:27)
[2019-06-16] MEDS: DULoxetine HCL 60 MG CAPSULE.DR PO SCH (05:26)
[2019-06-16] MEDS: LORATADINE 10 MG TAB PO SCH (05:27)
[2019-06-16] MEDS: LISINOPRIL 2.5 MG TAB PO SCH (05:28)
[2019-06-16] MEDS: PANTOPRAZOLE 40 MG TABLET PO SCH (05:29)
[2019-06-16 05:44] LABS: Basophils # (A) 0.1 k/uL (0-0.2); Basophils % (A) 1 %; Eosinophils # (A) 0.2 k/uL (0-0.7); Eosinophils % (A) 2 %; HCT 34.3 % (39.0-53.0); HGB 10.9 gm/dL (13.0-17.5); Hypochromasia Slight; Lymphocytes # (A) 2.2 k/uL (1.0-4.8); Lymphocytes % (A) 37 %; MCH 28.7 pg (25.0-35.0); MCHC 31.9 g/dL (31.0-37.0); MCV 89.9 fL (80.0-100.0); Monocytes # (A) 0.4 k/uL (0-1.0); Monocytes % (A) 6 %; Neutrophils # (A) 3.1 k/uL (1.3-7.7); Neutrophils % (A) 52 %; Platelet Count 209 k/uL (150-450); Poikilocytosis Slight; RBC 3.81 m/uL (4.30-5.90); RDW 14.8 % (11.5-15.5); WBC 6.1 k/uL (3.8-10.6)
[2019-06-16 05:56] LABS: African American GFR (CKD) >90 (>60 ml/min/1.73 sqM); Anion Gap 8 mmol/L; Blood Urea Nitrogen 20 mg/dL (9-20); Calcium 8.1 mg/dL (8.4-10.2); Carbon Dioxide 26 mmol/L (22-30); Chloride 105 mmol/L (98-107); Glucose 127 mg/dL (74-99); Non-African American GFR(CKD) >90 (>60 ml/min/1.73 sqM); Sodium 139 mmol/L (137-145)
[2019-06-16] MEDS ORDERED: ASPIRIN 325 MG TAB PO ONE (06:00)
[2019-06-16] MEDS ORDERED: ATORVASTATIN 80 MG TAB PO ONE (06:00)
[2019-06-16] MEDS: INSULIN DETEMIR (LEVEMIR) 100 UNIT/ML SYR SQ SCH (06:58)
[2019-06-16] MEDS: INSULIN ASPART (NovoLOG) 100 UNIT/ML VIAL SQ SCH ×4 (06:58→21:28)
[2019-06-16 07:05] LABS: Glucose,Whole Blood 133 mg/dL (75-99)
--- NOTE | 2019-06-16 07:55 | P.PN ---
Subjective from records: 53-year-old male patient with history of diabetes and hypertension transferred from [facility] with acute STEMI; patient was admitted with nausea and abdominal pain with stable EKG at time of admission but later develop ed episode of tachycardia and was given adenosine which was unsuccessful; patient eventually converted back to sinus rhythm at which time EKG showed ST elevation in anterior leads and was transferred to our facility for further evaluation and treatment Upon arrival to the facility patient was directly taken to [facility]; Cardiac catheterization showed total occlusion of proximal LAD for which patient underwent successful stenting and is subsequently transferred to ICU for continued close monitoring 06/13/19 Patient had a cardiac catheterization and was found to have total occlusion of the LAD and 90% stenosis of the RCA. Patient had stent placement of the LAD. Patient had another bout of wide complex tachycardia yesterday requiring heart impression. Appears to be ventricular tachycardia. Currently patient is on IV amiodarone. He is also on dual antiplatelet agents along with beta janiya, TANISHA inhibitor and diuretics. He chest x-rays to show pulmonary edema. Today is feeling better. It appears that patient diary segmental. His blood pressures more stable. We'll going to add Lasix 20 may gram once daily. Patient is switched to by mouth amiodarone. Most probably related stent placement of the RCA and subsequently should be considered for prophylactic AICD. Prognosis is guarded Has been having mild nosebleeds a self-limiting; hemoglobin is 10.2 this morning which is down from 11 yesterday; we will continue to monitor H&H Blood sugars are elevated between 183-203; patient has been receiving amiodarone and dextrose-based solution; we will continue to monitor Accu-Cheks and make adjustments if blood sugars remain elevated 06/14/2019 Patient is seen and evaluated in room at bedside; patient complains of nasal congestion and requesting a decongestant; no further nosebleeds Cardiology is following and at this point entertaining a possible stent placement to RCA and AICD placement prior to discharge; blood sugars remain elevated ranging between 140-220 with sliding scale coverage; we will start patient on Levemir 10 units subcu daily at bedtime and resume Accu-Cheks with sliding scale; patient reports no further nosebleeds and hemoglobin remained stable at 10 subjective: 06/15/2019 pt is seen today in the ICU , no chest pain of dyspnea , completely awake , vitals looks stable . sugar is controlled. no labs from today . however CBC and BMP from yesterday are reviewed , we will check labs tomorrow as well. cardiology are following the case closely , and they plan for angiogram for his right coronary artery with possible stenting and to be associated with AICD placement as per environmental health officer note. no more ventricluar tachycardia, however we will keep close monitoring in the ICU as pt is still at some risk 06/16/19 Patient lying in bed comfortably with no distress. Chest pain or dizziness. Vitals are stable. Labs reviewed. Cartilages are planning for possible stent placement of the RCA, and possible AICD placement tomorrow Objective - Vital Signs Vital signs: Vital Signs Temp 97.8 F 06/16/19 00:00 Pulse 83 06/16/19 06:00 Resp 16 06/16/19 00:00 BP 131/64 06/16/19 05:00 Pulse Ox 98 06/16/19 00:00 Intake & Output 06/15/19 06/16/19 06/16/19 18:59 06:59 18:59 Intake Total 680 1240 Output Total 50 Balance 630 1240 Weight 93 kg 94.2 kg Intake: IV 1000 Sodium Chloride 0.9% 1, 1000 000 ml In Empty Bag 1 bag @ 1 ML/KG/HR 93 mls/hr IV .[id number] ONE Rx#: [id number] Oral 680 240 Output: Urine 50 Other: Voiding Method Indwelling Catheter Toilet # Voids 2 - Exam HEENT: Head is atraumatic, normocephalic. Pupils equal, round. Neck is supple. There is no elevated jugular venous pressure. HEART EXAMINATION: Heart S1-S2, no murmur is heard CHEST EXAMINATION: Lungs reveal no expiratory wheezes throughout otherwise essentially clear. ABDOMEN: Soft, nontender. Bowel sounds are heard. No organomegaly noted. EXTREMITIES: 2+ peripheral pulses with no evidence of peripheral edema and no calf tenderness noted. NEUROLOGIC patient is awake, alert and oriented x3. no gross neurological deficit - Labs CBC & Chem 7: 06/16/19 04:55 06/16/19 04:53 Labs: Abnormal Lab Results - Last 24 Hours (Table) 06/15/19 06/15/19 06/15/19 Range/Units 11:45 16:41 20:14 RBC (4.30-5.90) m/uL Hgb (13.0-17.5) gm/dL Hct (39.0-53.0) % Glucose (74-99) mg/dL POC Glucose (mg/dL) 162 H 185 H 189 H (75-99) mg/dL Calcium (8.4-10.2) mg/dL 06/16/19 06/16/19 06/16/19 Range/Units 04:53 04:55 06:53 RBC 3.81 L (4.30-5.90) m/uL Hgb 10.9 L (13.0-17.5) gm/dL Hct 34.3 L (39.0-53.0) % Glucose 127 H (74-99) mg/dL POC Glucose (mg/dL) 133 H (75-99) mg/dL Calcium 8.1 L (8.4-10.2) mg/dL Assessment and Plan Assessment: -acute STEMI: patient is status post cardiac catheterization with stenting of proximal LAD; Also showed severe disuse to RCA; he will continue with dual antiplatelet therapy, statins and beta blockers; tanisha inhibitors and Aldactone to resume once blood pressure is stable -wide complex tachycardia suspicous for V. tack: continue with cardiology recommendation , currently on amiodarone and metoprolol -acute on chronic CHF with EF OF 30-35%, Pt is continue with the same medical therapy of metoprolol , lasix, strict input and output -diabetes mellitus -hyperlipidemia -hypothyroidism -DVT Px: on dual antiplatelet therapy/ SCDs prognosis is guarded
[2019-06-16] MEDS: BRIMONIDINE TARTRATE 0.2% DROPS 5 ML BTL BOTH EYES SCH ×2 (08:47→21:32)
[2019-06-16] MEDS: TICAGRELOR 90 MG TAB PO SCH ×2 (08:50→21:40)
[2019-06-16] MEDS: FUROSEMIDE 20 MG TAB PO SCH (08:50)
--- NOTE | 2019-06-16 08:56 | P.PN ---
Subjective Progress Note Date: 06/16/19 Principal diagnosis: Acute coronary syndrome This is a pleasant 53-year-old gentleman with a past medical history significant for diabetes, hypertension, dyslipidemia, presented to the hospital with chest discomfort and was diagnosed with acute coronary syndrome. He underwent an emergent heart catheterization and stenting of the LAD. On presentation and the following day after stenting he did have an episode of V. tach. The patient subsequently was started on amiodarone IV. The echo revealed impaired LV function was EF between 30-35% with anteroapical hypokinesia. The patient was seen today, June 162018. Overall he is doing. From the cardiovascular standpoint overview. He remains asymptomatic and doing clinically well. He remains in normal sinus mechanism. The blood pressure has improved after we decrease the dose of metoprolol yesterday. He is going to undergo PCI of the RCA this early afternoon and subsequently an AICD after tomorrow. Objective - Vital Signs Vital signs: Vital Signs Temp 98.0 F 06/16/19 08:00 Pulse 73 06/16/19 08:00 Resp 16 06/16/19 08:00 BP 98/67 06/16/19 08:00 Pulse Ox 94 L 06/16/19 08:00 Intake & Output 06/15/19 06/16/19 06/16/19 18:59 06:59 18:59 Intake Total 680 1240 Output Total 50 Balance 630 1240 Weight 93 kg 94.2 kg Intake: IV 1000 Sodium Chloride 0.9% 1, 1000 000 ml In Empty Bag 1 bag @ 1 ML/KG/HR 93 mls/hr IV .[id number] ONE Rx#: [id number] Oral 680 240 Output: Urine 50 Other: Voiding Method Indwelling Catheter Toilet # Voids 2 - Constitutional General appearance: Present: no acute distress - Respiratory Respiratory: bilateral: CTA - Cardiovascular Rhythm: regular Heart sounds: normal: S1, S2 - Labs CBC & Chem 7: 06/16/19 04:55 06/16/19 04:53 Labs: Abnormal Lab Results - Last 24 Hours (Table) 06/15/19 06/15/19 06/15/19 Range/Units 11:45 16:41 20:14 RBC (4.30-5.90) m/uL Hgb (13.0-17.5) gm/dL Hct (39.0-53.0) % Glucose (74-99) mg/dL POC Glucose (mg/dL) 162 H 185 H 189 H (75-99) mg/dL Calcium (8.4-10.2) mg/dL 06/16/19 06/16/19 06/16/19 Range/Units 04:53 04:55 06:53 RBC 3.81 L (4.30-5.90) m/uL Hgb 10.9 L (13.0-17.5) gm/dL Hct 34.3 L (39.0-53.0) % Glucose 127 H (74-99) mg/dL POC Glucose (mg/dL) 133 H (75-99) mg/dL Calcium 8.1 L (8.4-10.2) mg/dL Assessment and Plan Assessment: Assessment #[address] elevation myocardial infarction #2 status post PCI of the LAD #3 severe disease involving the RCA #4 sustained V. tach #5 impaired LV function Plan #1 continue the current medical regimen #2 continue the current dose of metoprolol #3 continue dual antiplatelet therapy along with high intensity statin #4 continue beta janiya as well as TANISHA inhibitor #5 continue Aldactone #6 PCI of the RCA to be done today
[2019-06-16] MEDS: SPIRONOLACTONE 25 MG TAB PO SCH (09:59)
[2019-06-16 12:03] LABS: Glucose,Whole Blood 186 mg/dL (75-99)
[2019-06-16] MEDS ORDERED: ALPRAZolam 0.25 MG TAB PO PRN (13:39)
[2019-06-16] MEDS ORDERED: NITROGLYCERIN SL TABS 0.4 MG TAB SUBLINGUAL PRN (13:39)
[2019-06-16] MEDS ORDERED: ALPRAZolam 0.5 MG TAB PO PRN (13:39)
[2019-06-16 14:08] LABS: Glucose,Whole Blood 166 mg/dL (75-99)
[2019-06-16] MEDS ORDERED: LORazepam 2 MG/ML INJ IV STA (16:50)
[2019-06-16] MEDS: OXYMETAZOLINE 0.05% NASL SPRAY 1 SPRAY BOTTLE NASAL SCH ×2 (17:44→21:08)
[2019-06-16 17:51] LABS: Basophils % (A) 1 %; Eosinophils # (A) 0.1 k/uL (0-0.7); Eosinophils % (A) 1 %; HCT 31.1 % (39.0-53.0); HGB 9.9 gm/dL (13.0-17.5); Hypochromasia Slight; Lymphocytes # (A) 1.5 k/uL (1.0-4.8); Lymphocytes % (A) 20 %; MCH 28.7 pg (25.0-35.0); MCHC 31.9 g/dL (31.0-37.0); MCV 89.9 fL (80.0-100.0); Mean Platelet Volume 6.8; Monocytes # (A) 0.4 k/uL (0-1.0); Monocytes % (A) 6 %; Neutrophils # (A) 5.2 k/uL (1.3-7.7); Neutrophils % (A) 71 %; Platelet Count 276 k/uL (150-450); Poikilocytosis Slight; RBC 3.45 m/uL (4.30-5.90); RDW 14.9 % (11.5-15.5); WBC 7.3 k/uL (3.8-10.6)
[2019-06-16] MEDS ORDERED: ONDANSETRON 4 MG/2 ML VIAL IVP PRN (18:19)
[2019-06-16 18:32] LABS: Glucose,Whole Blood 194 mg/dL (75-99)
[2019-06-16 21:03] LABS: Glucose,Whole Blood 222 mg/dL (75-99)
[2019-06-16] MEDS: ATORVASTATIN 80 MG TAB PO SCH (21:27)
[2019-06-16] MEDS ORDERED: THROMBIN (BOVINE) 5,000 UNIT VIAL MISCELLANE STA (22:32)
[2019-06-17] MEDS: ZOLPIDEM 5 MG TAB PO PRN (00:53)
[2019-06-17 02:54] LABS: HCT 23.8 % (39.0-53.0); Hypochromasia Moderate; MCH 30.2 pg (25.0-35.0); MCHC 33.5 g/dL (31.0-37.0); MCV 90.2 fL (80.0-100.0); Mean Platelet Volume 6.6; Platelet Count 335 k/uL (150-450); Poikilocytosis Slight; RBC 2.64 m/uL (4.30-5.90); WBC 10.7 k/uL (3.8-10.6)
[2019-06-17 03:09] LABS: Prothrombin Time 10.4 sec (9.0-12.0)
[2019-06-17 03:10] LABS: Partial Thromboplastin Time 21.5 sec (22.0-30.0)
[2019-06-17 03:14] LABS: African American GFR (CKD) >90 (>60 ml/min/1.73 sqM); Anion Gap 11 mmol/L; Blood Urea Nitrogen 56 mg/dL (9-20); Calcium 8.4 mg/dL (8.4-10.2); Carbon Dioxide 24 mmol/L (22-30); Chloride 102 mmol/L (98-107); Glucose 236 mg/dL (74-99); Non-African American GFR(CKD) 80 (>60 ml/min/1.73 sqM); Potassium 4.5 mmol/L (3.5-5.1); Sodium 137 mmol/L (137-145)
--- NOTE | 2019-06-17 05:38 | CONS ---
CONSULTATION DATE OF CONSULTATION: 06/16/2019 Approximate time 4:45 p.m. to 7:30 p.m. REASON FOR CONSULTATION: Severe left epistaxis. HISTORY OF PRESENT ILLNESS: The patient is a pleasant 53-year-old male who was initially transferred from [facility] with complaints of chest pain. The patient was subsequently discovered to have had an acute myocardial infarction and was admitted to [facility]. He was admitted to the IC unit because there were no other beds available. The patient subsequently underwent various testing including cardiac catheterization and it was noted that several of the main arteries were blocked and the patient had a stent inserted. It was planned that he would have a second stent implanted on approximately 06/17/2019. However, the patient while in his room subsequently developed ventricular fibrillation and had to be defibrillated. On 06/16/19, my office was called because the patient had blown his nose quite hard and developed a left-sided nosebleed which was quite profuse. Various attempts by the nursing staff to stop the bleeding was not successful. I subsequently spoke with the patient's nurse and advised her that I would be able to see the patient. At the time that I arrived at the ICU, the patient was still bleeding, but not profusely. The patient has been using Flonase nasal spray in the past and I advised him to stop this because one of the major side effects is nosebleeds. In addition to this because he is on a major blood thinner, Brilinta, this is why his nosebleed has been difficult to stop. The patient stated that he has history of myelogenous leukemia for which he is receiving treatment with medication, Sprycel. He also has a history of nasal stuffiness and allergic rhinitis for which he has also been using Claritin in addition to the Flonase nasal spray. PAST MEDICAL HISTORY: Past medical history reveals patient has allergies to PENICILLIN, XALATAN and SULFA. Current medications include Sprycel, Alphagan, Prilosec, Claritin, Flonase, Crestor, Actos, metformin, Victoza, Synthroid, Cymbalta, Xanax, Adderall and Brilinta. REVIEW OF SYSTEMS: CARDIOVASCULAR SYSTEM: Positive for ASHD. RESPIRATORY SYSTEM: Negative. GASTROINTESTINAL SYSTEM: Positive for GERD, gastroesophageal reflux disorder. METABOLIC ENDOCRINE SYSTEM: Positive for type 2 diabetes mellitus, hypercholesterolemia and hypothyroidism. SPECIAL SENSES: Positive for glaucoma. HEMATOLOGICAL SYSTEM: Positive for myelogenous leukemia. The remainder of the review of systems is essentially noncontributory. PHYSICAL EXAMINATION: This patient is a 53-year-old male who is alert, quite anxious, and well oriented to time and place. At the current time, he is having bleeding from the left naris. HEENT EXAMINATION: The patient is normocephalic. Tympanic membranes are normal. Middle ear space is free of any fluid or infection. Pupils equal, round, react to light and accommodation. Conjunctivae are clear. Intranasal examination reveals that the patient has an area of bleeding midway on the septum, near the floor of the nose, which appears to be a large ulcerated area. Other bleeding sites are not able to be assessed at the bedside. Examination of oropharynx reveals there is blood draining down the posterior pharyngeal wall. Palpation of the neck, cranial nerves 2-12 and remainder of the head and neck exam is unremarkable. CHEST/CARDIOVASCULAR: Both lung frey are clear to percussion and auscultation. Patient is in regular sinus rhythm. S1, S2 are present without evidence of any murmurs. The remainder of physical examination is essentially unremarkable. IMPRESSION: Left anterior posterior epistaxis. PLAN: I spent approximately 2 hours with this patient trying to stop his nasal bleeding. Multiple non-invasive measures were tried including Afrin nasal spray and a medication called Nasalcease. Eventually, after approximately 2 hours of using these various measures, the bleeding seemed to be controlled. Again, I spent approximately 2 hours with this patient. During these times, it was noted that the bleeding would be somewhat sporadic in that the patient would ooze for a while and then it would pretty much settle down and then it would start again. After the initial treatment with Afrin and with the NasalCEASE, I waited approximately an additional 30 minutes in the room with the patient and there was no further bleeding and therefore I left. My instructions were to apply the Afrin nasal spray 2 puffs in the left naris 3 times a day. In addition to this, I did apply a mustache dressing for the patient with which I demonstrated to the nursing staff how to make this dressing and this could be changed on a p.r.n. basis. It is expected the patient will bleed off and on, especially since he is on the blood thinner, Brilinta, which cannot be stopped because of his stents. As a consequence, this makes stopping this bleeding very difficult. I prefer not to insert a nasal balloons because they are extremely uncomfortable and need to be left in place for 5 to 7 days. In addition to this, cauterizing the area with a topical chemical such as silver nitrate will only create an additional bleeding spot and traumatize further mucous membrane. Ideally, this situation could be taken care by taking the patient to surgery and under general anesthesia using electrocautery to cauterize sites that could be very easily identified. My plan is trying to avoid any invasive measures with might stir up further bleeding sites and also add to the patient's already high anxiety. I will follow this patient very closely with you and monitor him and I have advised the nurses if there are any issues or further bleeding, they should not hesitate to call me since I am data integration analyst for ENT. I want to take this opportunity to thank you for allowing me to assist you in the care of your patient. If I could be of further assistance, please feel free to call my office. JACKIE / KADE: [id number] / BRONSON
--- NOTE | 2019-06-17 05:53 | PN ---
PROGRESS NOTE DATE OF SERVICE: 06/16/2019 SUBJECTIVE: I was called alexandro at approximately 8:30 p.m. because the patient had apparently started bleeding from the left naris again. I spoke with the nurse who was caring for the patient and after some discussion I elected to come in to actually see the patient. At the time of my arrival, it was noted that he was actively bleeding from the left naris and of course was quite anxious. The nurse stated that she had tried putting additional Afrin nasal spray in his left nostril, but this did not seem to help. OBJECTIVE: After having the patient evacuate all blood clots from his nose by gently blowing his nose, instead of using more Afrin nasal spray, I elected to use a hemostatic powder called Joao. I spent approximately 2 hours with this patient getting his bleeding controlled. Multiple applications of the Joao seemed to work for a brief period of time, but after a while it would fail, especially if the patient happened to strain or cough. Even though I was able to see the actual bleeding site, I simply could not get the bleeding to stop. Again, I wanted to avoid cauterizing the area because of concern of further trauma to the tissue and opening up any further bleeding sites. After failure of the hemostatic powder to control his bleeding, I elected to insert an 8 cm Merocel nasal tampon. After lubricating this with a water-soluble lubricant, this was carefully inserted into the left nares along the floor of the nose and along the left inferior turbinate in a very gentle and atraumatic fashion. The patient did not have any complaints of pain as this was inserted. Because of the multiple sprays with the Afrin nasal spray, his nose was nicely decongested and even though he had a severe anterior septal deviation, the nasal tampon was able to be inserted without too much difficulty. Once it was inserted, it was expanded with a solution of thrombin which had been mixed with a combination of thrombin powder and saline. This was applied with an 18-gauge needle which was simply placed into the very tip of the nasal tampon and used to inflate it. Hopefully this will act as an anticoagulant as well as a light pressure dressing. The patient stated that it was not too uncomfortable. I prefer not to use a so-called rhino rockets because they have a cloth covering over the balloons and this tends to really tear the mucous membranes as it is inserted and also as it is removed, thereby opening up further bleeding sites. I waited an additional 30 minutes after inserting this to make sure that the patient was not having active bleeding. Examination of his oropharynx did not reveal any bleeding down the posterior pharyngeal wall or any blood clots hanging down. Examination of the opposite naris, the right naris, did not reveal any bleeding in that side either. Therefore, I taped the tampon string to the patient's left cheek and at least for now I feel that this is going to control his bleeding. ASSESSMENT: Severe left anterior posterior epistaxis. PLAN: At this point, I am going to temporarily make the patient n.p.o. I do not believe that either Anesthesia or Dr. Ovalle will allow me to take this patient to surgery to control his bleeding. To do so, the patient would need to undergo a general anesthetic, including being intubated for safety reason because of his bleeding, and this would only take probably about 10 to 15 minutes. However, I understand that because of the patient's cardiac condition and because of an additional blocked artery and because of his recent stent placement that he is probably not a good candidate for any type of general anesthesia procedure. Unfortunately, this could not be done under IV sedation because the patient's airway has to be controlled either intubation or with a so-called LMA device covering his larynx. Otherwise, there would be a risk of the patient aspirating blood and possibly this would cause his vocal cords to completely close shut thereby causing loss of his airway. I will speak with Dr. Ovalle in the morning and also with one of the anesthesiologists to get their input. If the patient is not having any further bleeding when I check him tomorrow sometime in the early afternoon and then it would probably be okay to simply leave the nasal packing in and give it an additional 24 to 48 hours to see if there is any further additional bleeding. If not, then at that point, you could probably proceed with the insertion of the second stent. However, I would want the packing to remain in for several days. When I say several days I mean anywhere from 3 to 7 days before removal. I usually like to remove the packing in my office and not in the hospital. Again, I spent approximately 2 hours with this patient and arrived at the hospital shortly before 10:30 and left after 12:30 a.m. I informed the nurse that if she needs to call me she should feel free to do so. My plan at this point is to check with her at approximately 3 a.m. in the morning and see how the patient is doing. JACKIE / KADE: [id number] / MTDD
[2019-06-17] MEDS ORDERED: ASPIRIN 325 MG TAB PO ONE (06:00)
[2019-06-17] MEDS ORDERED: SODIUM CHLORIDE 0.9% 1,000 ML in EMPTY BAG 1 BAG IV ONE (06:00)
[2019-06-17] MEDS ORDERED: ATORVASTATIN 80 MG TAB PO ONE (06:00)
[2019-06-17] MEDS: LEVOTHYROXINE 25 MCG TAB PO SCH (06:44)
[2019-06-17] MEDS: INSULIN ASPART (NovoLOG) 100 UNIT/ML VIAL SQ SCH ×4 (06:54→21:48)
[2019-06-17] MEDS: INSULIN DETEMIR (LEVEMIR) 100 UNIT/ML SYR SQ SCH (06:54)
[2019-06-17 07:02] LABS: Glucose,Whole Blood 235 mg/dL (75-99)
--- NOTE | 2019-06-17 07:48 | P.PN ---
Subjective Progress Note Date: 06/17/19 Principal diagnosis: Acute coronary syndrome This is a pleasant 53-year-old gentleman with a past medical history significant for diabetes, hypertension, dyslipidemia, presented to the hospital with chest discomfort and was diagnosed with acute coronary syndrome. He underwent an emergent heart catheterization and stenting of the LAD. On presentation and the following day after stenting he did have an episode of V. tach. The patient subsequently was started on amiodarone IV. The echo revealed impaired LV function was EF between 30-35% with anteroapical hypokinesia. The patient was seen this morning, June 172018. He developed epistaxis yesterday. He didn't bleed for 12 hours. The hemoglobin dropped 3 g between the day before yesterday and today. Otherwise hemodynamically he is stable with marginally low blood pressure and heart rate on the upper limits of normal. He is asymptomatic from a cardiovascular standpoint overview. He was seen yesterday by Dr. Sofia who diagnosed the patient with ulcer involving the nasal septum. The patient is going to undergo surgery on the septum later on today. Having said that I would hold on the PCI of the RCA at this point. Objective - Vital Signs Vital signs: Vital Signs Temp 98.6 F 06/17/19 04:00 Pulse 73 06/17/19 04:00 Resp 29 H 06/17/19 04:00 BP 99/50 06/17/19 04:43 Pulse Ox 94 L 06/17/19 04:43 Intake & Output 06/16/19 06/17/19 06/17/19 18:59 06:59 18:59 Intake Total 800 600 Output Total 350 600 Balance 450 0 Weight 90.9 kg Intake: IV 800 600 Sodium Chloride 0.9% 1, 600 000 ml @ 20 mls/hr IV . Q24H [facility] Rx#:[id number] Sodium Chloride 0.9% 1, 800 000 ml In Empty Bag 1 bag @ 1 ML/KG/HR 93 mls/hr IV .[id number] ONE Rx#: [id number] Output: Urine 350 600 Other: Voiding Method Toilet Urinal - Constitutional General appearance: Present: no acute distress - Respiratory Respiratory: bilateral: CTA - Cardiovascular Rhythm: regular Heart sounds: normal: S1, S2 - Labs CBC & Chem 7: 06/17/19 02:37 06/17/19 02:37 Labs: Abnormal Lab Results - Last 24 Hours (Table) 06/16/19 06/16/19 06/16/19 Range/Units 11:51 13:57 17:34 WBC (3.8-10.6) k/uL RBC 3.45 L (4.30-5.90) m/uL Hgb 9.9 L (13.0-17.5) gm/dL Hct 31.1 L (39.0-53.0) % APTT (22.0-30.0) sec BUN (9-20) mg/dL Glucose (74-99) mg/dL POC Glucose (mg/dL) 186 H 166 H (75-99) mg/dL 06/16/19 06/16/19 06/17/19 Range/Units 18:20 20:52 02:37 WBC 10.7 H (3.8-10.6) k/uL RBC 2.64 L (4.30-5.90) m/uL Hgb 8.0 L D (13.0-17.5) gm/dL Hct 23.8 L (39.0-53.0) % APTT (22.0-30.0) sec BUN (9-20) mg/dL Glucose (74-99) mg/dL POC Glucose (mg/dL) 194 H 222 H (75-99) mg/dL 06/17/19 06/17/19 06/17/19 Range/Units 02:37 02:45 06:50 WBC (3.8-10.6) k/uL RBC (4.30-5.90) m/uL Hgb (13.0-17.5) gm/dL Hct (39.0-53.0) % APTT 21.5 L (22.0-30.0) sec BUN 56 H (9-20) mg/dL Glucose 236 H (74-99) mg/dL POC Glucose (mg/dL) 235 H (75-99) mg/dL Assessment and Plan Assessment: Assessment #[address] elevation myocardial infarction #2 status post PCI of the LAD #3 severe disease involving the RCA #4 sustained V. tach #5 impaired LV function #6 severe epistaxis Plan #1 continue the current medical regimen including dual antiplatelet therapy #2 the patient is going to undergo surgery on the septum later on today #3 hold on any PCI of the RCA at this point #4 follow-up with the patient
[2019-06-17] MEDS: FUROSEMIDE 20 MG TAB PO SCH (09:09)
[2019-06-17] MEDS: TICAGRELOR 90 MG TAB PO SCH ×2 (09:09→20:17)
[2019-06-17] MEDS: PANTOPRAZOLE 40 MG TABLET PO SCH (09:09)
[2019-06-17] MEDS: ASPIRIN 81 MG PO SCH (09:10)
[2019-06-17] MEDS: METOPROLOL TARTRATE 12.5 MG TAB PO SCH ×2 (09:10→20:17)
[2019-06-17] MEDS: DULoxetine HCL 60 MG CAPSULE.DR PO SCH (09:10)
[2019-06-17] MEDS: AMIODARONE 200 MG TAB PO SCH ×2 (09:10→20:18)
[2019-06-17] MEDS: SPIRONOLACTONE 25 MG TAB PO SCH (09:11)
[2019-06-17] MEDS: LORATADINE 10 MG TAB PO SCH (09:11)
[2019-06-17] MEDS: OXYMETAZOLINE 0.05% NASL SPRAY 1 SPRAY BOTTLE NASAL SCH ×4 (09:11→21:26)
[2019-06-17] MEDS: LISINOPRIL 2.5 MG TAB PO SCH (09:11)
[2019-06-17] MEDS: clonazePAM 0.5 MG TAB PO PRN ×2 (10:23→20:18)
--- NOTE | 2019-06-17 10:24 | P.PN ---
Subjective from records: 53-year-old male [place] with history of diabetes and [place] [facility] [place] patient was admitted with nausea and abdominal pain with stable EKG at time of admission but later develop ed episode of tachycardia and was given adenosine which was unsuccessful; patient eventually converted back to sinus rhythm at which time EKG showed ST elevation in anterior leads and was transferred to our facility for further evaluation and treatment Upon arrival to the facility patient was directly taken to [facility]; Cardiac catheterization showed total occlusion of proximal LAD for which patient underwent successful stenting and is subsequently transferred to ICU for continued close monitoring 06/13/19 Patient had a cardiac catheterization and was found to have total occlusion of the LAD and 90% stenosis of the RCA. Patient had stent placement of the LAD. Patient had another bout of wide complex tachycardia yesterday requiring heart impression. Appears to be ventricular tachycardia. Currently patient is on IV amiodarone. He is also on dual antiplatelet agents along with beta janiya, TANISHA inhibitor and diuretics. He chest x-rays to show pulmonary edema. Today is feeling better. It appears that patient diary segmental. His blood pressures more stable. We'll going to add Lasix 20 may gram once daily. Patient is switched to by mouth amiodarone. Most probably related stent placement of the RCA and subsequently should be considered for prophylactic AICD. Prognosis is guarded Has been having mild nosebleeds a self-limiting; hemoglobin is 10.2 this morning which is down from 11 yesterday; we will continue to monitor H&H Blood sugars are elevated between 183-203; patient has been receiving amiodarone and dextrose-based solution; we will continue to monitor Accu-Cheks and make adjustments if blood sugars remain elevated 06/14/2019 Patient is seen and evaluated in room at bedside; patient complains of nasal congestion and requesting a decongestant; no further nosebleeds Cardiology is following and at this point entertaining a possible stent placement to RCA and AICD placement prior to discharge; blood sugars remain elevated ranging between 140-220 with sliding scale coverage; we will start patient on Levemir 10 units subcu daily at bedtime and resume Accu-Cheks with sliding scale; patient reports no further nosebleeds and hemoglobin remained stable at 10 subjective: 06/15/2019 pt is seen today in the ICU , no chest pain of dyspnea , completely awake , vitals looks stable . sugar is controlled. no labs from today . however CBC and BMP from yesterday are reviewed , we will check labs tomorrow as well. cardiology are following the case closely , and they plan for angiogram for his right coronary artery with possible stenting and to be associated with AICD placement as per stock roller note. no more ventricluar tachycardia, however we will keep close monitoring in the ICU as pt is still at some risk 06/16/19 Patient lying in bed comfortably with no distress. Chest pain or dizziness. Vitals are stable. Labs reviewed. Cartilages are planning for possible stent placement of the RCA, and possible AICD placement tomorrow 06/17/2019 Patient is awake and alert in the ICU, yesterday she supposed to get cardiac cath as possible stent placement in his disease coronary artery however he developed sepsis significant epistaxis from his left nostril, ENT evaluated the patient and placed a packing in his left no sternal with close monitoring. His hemoglobin is dropped significantly from 9.9 to 8.0. However his vitals show blood pressure on the low side 99/50. We going to start him on normal saline and iron pills. Cardiology and ENT are still following the case closely. And the planning for surgery of his left nostril ulcer, while cardial she will holding his PCI for the RCA. We'll start him on normal saline and 75 mL per hour However patient denies chest pain or dyspnea or abdominal pain. No nausea vomiting. No fever. No other new complaints Review of systems CONSTITUTIONAL: No fever, no malaise, no fatigue. HEENT: No recent visual problems or hearing problems. Denied any sore throat. CARDIOVASCULAR: No orthopnea, PND, no palpitations, no syncope. PULMONARY: No shortness of breath, no cough, no hemoptysis. GASTROINTESTINAL: No diarrhea, no nausea, no vomiting, no abdominal pain. Normoactive bowel sounds. NEUROLOGICAL: No headaches, no weakness, no numbness. HEMATOLOGICAL: Denies any bleeding or petechiae. GENITOURINARY: Denies any burning micturition, frequency, or urgency. MUSCULOSKELETAL/RHEUMATOLOGICAL: Denies any joint pain, swelling, or any muscle pain. ENDOCRINE: Denies any polyuria or polydipsia. Active Medications Generic Name Dose Route Start Last Admin Trade Name Freq PRN Reason Stop Dose Admin Al Hydroxide/Mg Hydroxide 30 ml 06/12/19 05:39 Maalox PO Q4HR PRN Heartburn Amiodarone HCl 400 mg 06/13/19 12:00 06/17/19 09:10 Cordarone PO 400 mg BID BRAD Administration Aspirin 81 mg 06/17/19 09:00 06/17/19 09:10 Aspirin PO 81 mg DAILY BRAD Administration Atorvastatin Calcium 80 mg 06/12/19 21:00 06/16/19 21:27 Lipitor PO 80 mg HS BRAD Administration Atropine Sulfate 0.5 mg 06/12/19 05:39 Atropine IV ONCE PRN Symptomatic Bradycardia Brimonidine Tartrate 1 drops 06/12/19 21:00 06/16/19 21:32 Alphagan P 0.2% Ophth Soln BOTH EYES 1 drops BID [facility] Administration Clonazepam 0.5 mg 06/17/19 08:19 Klonopin PO TID PRN Anxiety Diclofenac Sodium 5 gm 06/12/19 15:40 Voltaren Gel TOPICAL QID PRN PAIN IN WRISTS AND HANDS Duloxetine HCl 60 mg 06/13/19 09:00 06/17/19 09:10 Cymbalta PO 60 mg QAM [facility] Administration Ferrous Sulfate 325 mg 06/17/19 10:30 Feosol PO BID-W/MEALS [facility] Furosemide 20 mg 06/13/19 09:45 06/17/19 09:09 Lasix PO 20 mg DAILY [facility] Administration Guaifenesin/Dextromethorphan 1 each 06/14/19 14:54 06/14/19 16:46 Mucinex Dm PO 1 each Q12HR PRN Administration Nasal Congestion Sodium Chloride 1,000 ml/ IV 1,000 mls @ 94.2 mls/hr 06/17/19 06:00 06/17/19 06:44 Solution IV 06/17/19 16:36 94.2 mls/hr .[id number] ONE Administration 1 ML/KG/HR Sodium Chloride 1,000 mls @ 75 mls/hr 06/17/19 10:30 Saline 0.9% IV .[id number] [facility] Insulin Aspart 0 unit 06/12/19 17:30 06/17/19 06:54 Novolog SQ 3 unit ACHS BRAD Administration Protocol Insulin Detemir 13 unit 06/16/19 07:00 06/17/19 06:54 Levemir SQ 13 unit DAILY@0700 BRAD Administration Levothyroxine Sodium 25 mcg 06/13/19 06:30 06/17/19 06:44 Synthroid PO Not Given DAILY@0630 [facility] Lisinopril 2.5 mg 06/12/19 09:00 06/17/19 09:11 Zestril PO 2.5 mg DAILY BRAD Administration Loratadine 10 mg 06/13/19 09:00 06/17/19 09:11 Claritin PO 10 mg DAILY BRAD Administration Metoprolol Tartrate 12.5 mg 06/14/19 21:00 06/17/19 09:10 Lopressor PO 12.5 mg BID BARD Administration Miscellaneous Information 1 each 06/14/19 06:57 Potassium Per Protocol MISCELLANE DAILY PRN Per Protocol Protocol Nitroglycerin 0.4 mg 06/16/19 13:39 Nitrostat SUBLINGUAL Q5M PRN Chest Pain (Dasatinib [Sprycel] 100 mg 06/14/19 11:44 06/16/19 18:31 100 Mg) PO 100 mg DAILY@1700 [facility] Administration Ondansetron HCl 4 mg 06/16/19 18:19 06/16/19 18:31 Zofran IVP 4 mg Q6HR PRN Administration Nausea And Vomiting Oxymetazoline HCl 3 spray 06/16/19 17:00 06/17/19 09:11 Afrin 0.05% Nasal [place] NASAL Not Given TID [facility] Pantoprazole Sodium 40 mg 06/13/19 07:30 06/17/19 09:09 Protonix PO 40 mg AC-BRKFST BRAD Administration Spironolactone 25 mg 06/12/19 09:00 06/17/19 09:11 Aldactone PO 25 mg DAILY [facility] Administration Ticagrelor 90 mg 06/12/19 09:00 06/17/19 09:09 Brilinta PO 90 mg BID BRAD Administration Zolpidem Tartrate 5 mg 06/12/19 05:39 06/17/19 00:53 Ambien PO 5 mg HS PRN Administration Insomnia Objective - Vital Signs Vital signs: Vital Signs Temp 98.6 F 06/17/19 04:00 Pulse 73 06/17/19 04:00 Resp 29 H 06/17/19 04:00 BP 99/50 06/17/19 04:43 Pulse Ox 94 L 06/17/19 04:43 Intake & Output 06/16/19 06/17/19 06/17/19 18:59 06:59 18:59 Intake Total 800 600 Output Total 350 600 Balance 450 0 Weight 90.9 kg Intake: IV 800 600 Sodium Chloride 0.9% 1, 600 000 ml @ 20 mls/hr IV . Q24H [facility] Rx#:[id number] Sodium Chloride 0.9% 1, 800 000 ml In Empty Bag 1 bag @ 1 ML/KG/HR 93 mls/hr IV .[id number] ONE Rx#: [id number] Output: Urine 350 600 Other: Voiding Method Toilet Urinal - Exam -HEENT: Head is atraumatic, normocephalic. Pupils equal, round. Neck is supple. There is no elevated jugular venous pressure. Left nostril was packed HEART EXAMINATION: Heart S1-S2, no murmur is heard CHEST EXAMINATION: Lungs reveal no expiratory wheezes throughout otherwise essentially clear. ABDOMEN: Soft, nontender. Bowel sounds are heard. No organomegaly noted. EXTREMITIES: 2+ peripheral pulses with no evidence of peripheral edema and no calf tenderness noted. NEUROLOGIC patient is awake, alert and oriented x3. no gross neurological deficit - Labs CBC & Chem 7: 06/17/19 02:37 06/17/19 02:37 Labs: Abnormal Lab Results - Last 24 Hours (Table) 06/16/19 06/16/19 06/16/19 Range/Units 11:51 13:57 17:34 WBC (3.8-10.6) k/uL RBC 3.45 L (4.30-5.90) m/uL Hgb 9.9 L (13.0-17.5) gm/dL Hct 31.1 L (39.0-53.0) % APTT (22.0-30.0) sec BUN (9-20) mg/dL Glucose (74-99) mg/dL POC Glucose (mg/dL) 186 H 166 H (75-99) mg/dL 06/16/19 06/16/19 06/17/19 Range/Units 18:20 20:52 02:37 WBC 10.7 H (3.8-10.6) k/uL RBC 2.64 L (4.30-5.90) m/uL Hgb 8.0 L D (13.0-17.5) gm/dL Hct 23.8 L (39.0-53.0) % APTT (22.0-30.0) sec BUN (9-20) mg/dL Glucose (74-99) mg/dL POC Glucose (mg/dL) 194 H 222 H (75-99) mg/dL 06/17/19 06/17/19 06/17/19 Range/Units 02:37 02:45 06:50 WBC (3.8-10.6) k/uL RBC (4.30-5.90) m/uL Hgb (13.0-17.5) gm/dL Hct (39.0-53.0) % APTT 21.5 L (22.0-30.0) sec BUN 56 H (9-20) mg/dL Glucose 236 H (74-99) mg/dL POC Glucose (mg/dL) 235 H (75-99) mg/dL Assessment and Plan Assessment: -acute STEMI: patient is status post cardiac catheterization with stenting of proximal LAD; Also showed severe disuse to RCA; he will continue with dual antiplatelet therapy, statins and beta blockers; tanisha inhibitors and Aldactone to resume once blood pressure is stable. Hold on cardiac cath and RCA I stent by cardiology as he is going for possible nasal surgery -Acute left nostril epistaxis status post packing by ENT who are following the patient closely. With ulcers in the left nostril, ENT team are planning to do surgery. -wide complex tachycardia suspicous for V. tack: continue with cardiology recommendation , currently on amiodarone and metoprolol -acute on chronic CHF with EF OF 30-35%, Pt is continue with the same medical therapy of metoprolol , lasix, strict input and output -Significant anxiety, change Xanax to Klonopin -diabetes mellitus -hyperlipidemia -hypothyroidism -DVT Px: on dual antiplatelet therapy/ SCDs prognosis is guarded
[2019-06-17] MEDS: BRIMONIDINE TARTRATE 0.2% DROPS 5 ML BTL BOTH EYES SCH ×2 (10:26→20:18)
[2019-06-17] MEDS: SODIUM CHLORIDE 0.9% 1,000 ML IV SCH ×2 (10:27→20:19)
[2019-06-17 12:05] LABS: Glucose,Whole Blood 151 mg/dL (75-99)
[2019-06-17 14:28] LABS: Glucose,Whole Blood 181 mg/dL (75-99)
--- NOTE | 2019-06-17 14:36 | P.PN ---
Progress Note - Text Progress Note Date: 06/17/19 This is an addendum on my previous progress note from today, 06/17/2019. Please note that the patient did have an episode of sustained ventricular tachycardia required cardioversion and the shock. The patient need to be discharged home on a life vest.
--- NOTE | 2019-06-17 15:58 | P.CN ---
Psychiatric Consult - . Consult date: 06/17/19 Consult:: Reason for consultation: "anxiety" and as per nursing staff the primary team was concerned about the patient medical-decision making capacity. Identifying data: Patient is a 53-year-old male who is self reported psychiatric history of bipolar disorder, anxiety and ADHD. The patient was seen while he was at ICU. Chief complaint and history of present illness: The patient was admitted to ICU because of further evaluation and treatment of STEMI, and cardiac arrhythmia. Patient reports has been diagnosed with bipolar disorder, social anxiety, and ADHD for long time and he is currently following with [facility] for therapy and receives psychiatric medications including Cymbalta, Xanax, and Adderall. The patient didn't address any anxiety, mood instability or agitation symptoms event the nurse reported the patient was very irritable yesterday and he wanted to leave AMA and was lying on the floor. The patient reports has been feeling frustrated because "nobody told me about when they will do the procedure for my nose and everyday change the timing". Also, patient reports has been frustrated because he was not able to drink or eat since yesterday and "Nobody told me for how long I will not be able to drink even water". Also, patient reports feeling distressed about leaving his 2 dogs at home with one of his friends who is sick and the patient wants to know the timeline for his treatment so he could manage his life and arrange for who will be taking care of his dogs. Patient denies feeling depressed, hopeless, or suicidal. He denies diminished motivation, lack of interest, feeling guilty, crying spells, sleep disturbances, or appetite disturbances. He denies any current symptoms of severe anxiety, feeling tense, racing thoughts, or panic attacks. He denies any current manic symptoms including feeling inflated self-esteem, a euphoric mood, unusual increased level of energy, lack need to sleep due to increased activities, or impulsive and irrational behavior. He also denies any current psychotic symptoms including auditory/visual hallucinations, paranoid ideation, or delusions. Past psychiatric history: Previous psychiatric hospitalization: Denies any previous psychiatric hospi talization. Previous suicidal attempts: Denies any history of suicidal attempt, suicidal thoughts, or suicidal behavior. Previous psychiatric treatment: Krista has been followed by [facility] for counseling and he receives psychiatric medications Cymbalta, Adderall, and Xanax. Substance use history: Denies any history of using tobacco products, drinking alcohol, or using any street drugs. Family history of psychiatric illness: As any family history of mental illness, suicide, or addiction problems Brief social history: Currently lives by himself at his own apartment, unemployed on Social Security disability, not in relationship, and has no children. Mental status examination; Appearance: The patient appears stated age, adequately groomed and dressed, no specific features. Gait/posture: Normal gait, Normal arm swinging: No abnormal movements. Attitude and behavior: engaged, cooperative, eye contact. Motor activity: Normal psychomotor activity Speech: Normal rate, tone. Mood: Anxious Affect: Constricted Thought form: goal-directed, linear, coherent. Thought content: Non-delusional, denies suicidal thoughts, denies homicidal thoughts, denies intentions or plans. Perception: Denies any auditory or visual hallucinations Attention: No impairment. Patient was able to repeat serial 5. Orientation: Patient patient was fully oriented to time place person and situation. Insight: Patient has fair insight about his psychiatric disorder. Judgment: Patient has fair judgment about his psychiatric treatment. Assessment: Bipolar disorder by history. Social anxiety by history. Recommendations: Addressed and ensured patient's safety, patient is not actively suicidal, and patient doesn't meet the criteria for psychiatric hospitalization. At this time there is no need for further follow-up by psychiatric team . Refer the patient to [employer] digital [employer] social media and crm to address his social stress and try to help him. Provide the patient with [employer] service "Recipients' right" number to commun icate any concern about the service. I spoke to the patient's advocate staff to talk to the patient. Medication management: Continue Cymbalta 60 mg daily for depression and anxiety Continue Klonopin 0.5 mg TID PRN for anxiety. Continue Ambien PRN for insomnia Decision making capacity assessment and recommendations: According to the patient's presentation and current assessment, the patient does have the capacity to make his medical decision because he is able to reason through, appreciate, and communicate the risks, benefits, and alternatives of treatment. Follow up with outpatient counseling and medication management after discharge. Discussed the treatment plan with the requesting physician/service. Psycho-education was provided to the patient. Thank you for permitting me to assist in this patient's treatment. Please call psychiatry department if you have any question or need further help with this case. 06/17/19 15:34
[2019-06-17] MEDS: FERROUS SULFATE 325 MG TAB PO SCH ×2 (16:54→17:17)
[2019-06-17 17:00] LABS: Glucose,Whole Blood 246 mg/dL (75-99)
[2019-06-17] MEDS: ATORVASTATIN 80 MG TAB PO SCH (20:17)
[2019-06-17 20:54] LABS: Glucose,Whole Blood 229 mg/dL (75-99)
[2019-06-17] MEDS ORDERED: ONDANSETRON 4 MG/2 ML VIAL IVP PRN (21:03)
[2019-06-17 22:47] LABS: Basophils % (A) 0 %; Eosinophils # (A) 0.2 k/uL (0-0.7); Eosinophils % (A) 1 %; HCT 22.7 % (39.0-53.0); HGB 7.3 gm/dL (13.0-17.5); Hypochromasia Moderate; Lymphocytes # (A) 3.4 k/uL (1.0-4.8); Lymphocytes % (A) 30 %; MCHC 32.3 g/dL (31.0-37.0); MCV 89.6 fL (80.0-100.0); Mean Platelet Volume 7.9; Monocytes # (A) 0.7 k/uL (0-1.0); Monocytes % (A) 6 %; Neutrophils % (A) 61 %; Platelet Count 182 k/uL (150-450); Poikilocytosis Slight; RBC 2.53 m/uL (4.30-5.90); RDW 15.6 % (11.5-15.5); WBC 11.4 k/uL (3.8-10.6)
[2019-06-18 05:07] LABS: Basophils % (A) 0 %; Eosinophils # (A) 0.2 k/uL (0-0.7); Eosinophils % (A) 2 %; HCT 21.6 % (39.0-53.0); Hypochromasia Moderate; Lymphocytes # (A) 2.7 k/uL (1.0-4.8); Lymphocytes % (A) 28 %; MCH 29.1 pg (25.0-35.0); MCHC 32.6 g/dL (31.0-37.0); MCV 89.4 fL (80.0-100.0); Mean Platelet Volume 7.7; Monocytes # (A) 0.5 k/uL (0-1.0); Monocytes % (A) 5 %; Neutrophils # (A) 6.2 k/uL (1.3-7.7); Neutrophils % (A) 64 %; Platelet Count 220 k/uL (150-450); Poikilocytosis Moderate; RBC 2.41 m/uL (4.30-5.90); RDW 15.7 % (11.5-15.5); WBC 9.7 k/uL (3.8-10.6)
[2019-06-18 05:20] LABS: African American GFR (CKD) >90 (>60 ml/min/1.73 sqM); Anion Gap 9 mmol/L; Blood Urea Nitrogen 27 mg/dL (9-20); Carbon Dioxide 25 mmol/L (22-30); Chloride 105 mmol/L (98-107); Glucose 161 mg/dL (74-99); Non-African American GFR(CKD) >90 (>60 ml/min/1.73 sqM); Potassium 3.8 mmol/L (3.5-5.1); Sodium 139 mmol/L (137-145)
[2019-06-18 05:31] LABS: INR 0.9 (<1.2); Partial Thromboplastin Time 21.8 sec (22.0-30.0)
[2019-06-18] MEDS: INSULIN ASPART (NovoLOG) 100 UNIT/ML VIAL SQ SCH ×3 (06:53→17:59)
[2019-06-18] MEDS: FERROUS SULFATE 325 MG TAB PO SCH (07:00)
[2019-06-18] MEDS: LEVOTHYROXINE 25 MCG TAB PO SCH (07:00)
[2019-06-18] MEDS: PANTOPRAZOLE 40 MG TABLET PO SCH (07:00)
[2019-06-18] MEDS: INSULIN DETEMIR (LEVEMIR) 100 UNIT/ML SYR SQ SCH (07:00)
[2019-06-18 07:03] LABS: Glucose,Whole Blood 167 mg/dL (75-99)
--- NOTE | 2019-06-18 07:55 | PN ---
PROGRESS NOTE DATE OF SERVICE: 06/17/2019 SUBJECTIVE: Patient is doing well. No further significant active bleeding from the left naris. The patient states that he is anxious to go home. OBJECTIVE: Examination of the nasal packing reveals that it is lightly stained with blood suggesting that there is still some bleeding, but not significant at this time. Examination of oropharynx does not reveal any significant bleeding down the posterior pharyngeal wall. ASSESSMENT: Severe anterior posterior left epistaxis. PLAN: From an ENT standpoint, it is okay for this patient to be discharged to home. He has been advised to avoid blowing his nose and if he has to sneeze, he should open his mouth when he does so. I spoke with him at length in his room and explained to him that the packing will be removed in my office next Saturday. The nursing staff should call my office and make an appointment for the patient for next Saturday to have his packing removed in the office. It would also be a good idea to place the patient on an antibiotic such as Zithromax Tri-Juan Manuel 500 mg to prevent any type of maxillary sinus infection which might be caused by the presence of the packing in the left naris obstructing the natural drainage of the sinus. In addition to this, there is most likely blood in the left maxillary sinus. I have explained to the patient that I know that the packing is uncomfortable, but he is simply going to have to bear with it for now. Unfortunately because he has to remain on the Brilinta, it will take several days for the blood vessels to finally thrombose and stop bleeding completely. I elected not to take the patient to surgery because he was not having any further significant bleeding. MMODL / IJN: [id number] /
[2019-06-18] MEDS: AMIODARONE 200 MG TAB PO SCH (08:30)
[2019-06-18] MEDS: FUROSEMIDE 20 MG TAB PO SCH (08:30)
[2019-06-18] MEDS: METOPROLOL TARTRATE 12.5 MG TAB PO SCH (08:31)
[2019-06-18] MEDS: DULoxetine HCL 60 MG CAPSULE.DR PO SCH (08:31)
[2019-06-18] MEDS: LORATADINE 10 MG TAB PO SCH (08:31)
[2019-06-18] MEDS: ASPIRIN 81 MG PO SCH (08:31)
[2019-06-18] MEDS: SPIRONOLACTONE 25 MG TAB PO SCH (08:31)
[2019-06-18] MEDS: LISINOPRIL 2.5 MG TAB PO SCH (08:32)
[2019-06-18] MEDS: TICAGRELOR 90 MG TAB PO SCH (08:32)
[2019-06-18] MEDS: clonazePAM 0.5 MG TAB PO PRN (08:52)
[2019-06-18] MEDS: OXYMETAZOLINE 0.05% NASL SPRAY 1 SPRAY BOTTLE NASAL SCH (08:52)
--- NOTE | 2019-06-18 09:05 | P.PN ---
Subjective Progress Note Date: 06/18/19 Principal diagnosis: Acute coronary syndrome This is a pleasant 53-year-old gentleman with a past medical history significant for diabetes, hypertension, dyslipidemia, presented to the hospital with chest discomfort and was diagnosed with acute coronary syndrome. He underwent an emergent heart catheterization and stenting of the LAD. On presentation and the following day after stenting he did have an episode of V. tach. The patient subsequently was started on amiodarone IV. The echo revealed impaired LV function was EF between 30-35% with anteroapical hypokinesia. Subsequently the patient developed nosebleed and the hemoglobin dropped to 8 yesterday. He was seen by ENT and and underwent conservative treatment only. Last night he did have an episode of GI bleeding with a blood in the stool but that could be related to the nosebleed because he swallowed a lot of blood. Also requested the patient to have a LifeVest. The patient was seen this morning, 06/18/2019. Hemoglobin this morning is 7 and he received one unit of packed RBC. He remains asymptomatic from a cardiovascular standpoint overview. No more nosebleed. He is requesting to be discharged home. I requested the patient to stay later on today and he has no more blood in the stool he might be able to be discharged home on LifeVest. Objective - Vital Signs Vital signs: Vital Signs Temp 98.4 F 06/18/19 04:00 Pulse 80 06/18/19 04:00 Resp 16 06/18/19 04:00 BP 113/55 06/18/19 04:00 Pulse Ox 96 06/18/19 04:00 Intake & Output 06/17/19 06/18/19 06/18/19 18:59 06:59 18:59 Output Total 600 Balance -600 Weight 91.2 kg Output: Urine 600 Other: Voiding Method Urinal Urinal # Voids 2 2 # Bowel Movements 1 - Constitutional General appearance: Present: no acute distress - Respiratory Respiratory: bilateral: CTA - Cardiovascular Rhythm: regular Heart sounds: normal: S1, S2 - Labs CBC & Chem 7: 06/18/19 04:57 06/18/19 04:57 Labs: Abnormal Lab Results - Last 24 Hours (Table) 06/17/19 06/17/19 06/17/19 Range/Units 11:54 14:17 16:49 WBC (3.8-10.6) k/uL RBC (4.30-5.90) m/uL Hgb (13.0-17.5) gm/dL Hct (39.0-53.0) % RDW (11.5-15.5) % APTT (22.0-30.0) sec BUN (9-20) mg/dL Glucose (74-99) mg/dL POC Glucose (mg/dL) 151 H 181 H 246 H (75-99) mg/dL Calcium (8.4-10.2) mg/dL Crossmatch 06/17/19 06/17/19 06/18/19 Range/Units 20:42 22:30 04:57 WBC 11.4 H (3.8-10.6) k/uL RBC 2.53 L 2.41 L (4.30-5.90) m/uL Hgb 7.3 L 7.0 L (13.0-17.5) gm/dL Hct 22.7 L 21.6 L (39.0-53.0) % RDW 15.6 H 15.7 H (11.5-15.5) % APTT (22.0-30.0) sec BUN (9-20) mg/dL Glucose (74-99) mg/dL POC Glucose (mg/dL) 229 H (75-99) mg/dL Calcium (8.4-10.2) mg/dL Crossmatch 06/18/19 06/18/19 06/18/19 Range/Units 04:57 04:57 06:33 WBC (3.8-10.6) k/uL RBC (4.30-5.90) m/uL Hgb (13.0-17.5) gm/dL Hct (39.0-53.0) % RDW (11.5-15.5) % APTT 21.8 L (22.0-30.0) sec BUN 27 H (9-20) mg/dL Glucose 161 H (74-99) mg/dL POC Glucose (mg/dL) (75-99) mg/dL Calcium 8.0 L (8.4-10.2) mg/dL Crossmatch See Detail 06/18/19 Range/Units 06:52 WBC (3.8-10.6) k/uL RBC (4.30-5.90) m/uL Hgb (13.0-17.5) gm/dL Hct (39.0-53.0) % RDW (11.5-15.5) % APTT (22.0-30.0) sec BUN (9-20) mg/dL Glucose (74-99) mg/dL POC Glucose (mg/dL) 167 H (75-99) mg/dL Calcium (8.4-10.2) mg/dL Crossmatch Assessment and Plan Assessment: Assessment #[address] elevation myocardial infarction #2 status post PCI of the LAD #3 severe disease involving the RCA #4 sustained V. tach #5 impaired LV function #6 severe epistaxis Plan #1 continue the current medical regimen including dual antiplatelet therapy #2 the patient is requesting to be discharged home #3 he can be discharged home on LifeVest
[2019-06-18] MEDS: BRIMONIDINE TARTRATE 0.2% DROPS 5 ML BTL BOTH EYES SCH (11:09)
[2019-06-18 11:59] LABS: Glucose,Whole Blood 167 mg/dL (75-99)
[2019-06-18 12:22] VITALS: TEMP 98.2
[2019-06-18] MEDS: SODIUM CHLORIDE 0.9% 1,000 ML IV SCH (14:14)
[2019-06-18] MEDS ORDERED: CEPHALEXIN 500 MG CAP PO SCH (15:00)
[2019-06-18 15:28] LABS: Basophils % (A) 0 %; Eosinophils # (A) 0.1 k/uL (0-0.7); Eosinophils % (A) 2 %; HGB 7.7 gm/dL (13.0-17.5); Hypochromasia Slight; Lymphocytes # (A) 1.4 k/uL (1.0-4.8); Lymphocytes % (A) 17 %; MCH 30.2 pg (25.0-35.0); MCHC 33.4 g/dL (31.0-37.0); MCV 90.6 fL (80.0-100.0); Mean Platelet Volume 6.9; Monocytes # (A) 0.5 k/uL (0-1.0); Monocytes % (A) 6 %; Neutrophils # (A) 6.1 k/uL (1.3-7.7); Neutrophils % (A) 75 %; Platelet Count 210 k/uL (150-450); Poikilocytosis Slight; RBC 2.54 m/uL (4.30-5.90); RDW 15.4 % (11.5-15.5); WBC 8.1 k/uL (3.8-10.6)
[2019-06-18 18:01] LABS: Glucose,Whole Blood 243 mg/dL (75-99)
[2019-06-18 18:43] VITALS: BP 102/61; PULSE 86; RESP 20
--- NOTE | 2019-06-18 21:52 | CONS ---
CONSULTATION DATE OF SERVICE: June 18, 2019. REASON FOR CONSULTATION: Anemia and Hemoccult-positive stool. HISTORY OF PRESENT ILLNESS: The patient is a 53-year-old pleasant white male with a history of diabetes mellitus, hypertension, hyperlipidemia, was admitted to hospital with chest pain and acute coronary syndrome. He underwent cardiac catheterization with stent placement of the LAD. He was started on anticoagulation after the stent placement. The patient had significant amount of nosebleed last night. He dropped his hemoglobin from 10-7 g/dL. Subsequently, he had multiple episodes of black tarry stools and hence we are consulted in regards to this issue. The patient was evaluated by ENT and underwent nasal packing by Dr. Sofia and the bleeding has completely resolved. He is presently on aspirin and Brilinta. This morning, he is feeling better. No further episodes of nosebleed. His stool has become almost dark green in color. He denies any abdominal pain. No nausea, no vomiting. PAST MEDICAL HISTORY: Significant for coronary artery disease, diabetes mellitus, hypertension, hyperlipidemia. MEDICATIONS: At home include: Alphagan eyedrops, omeprazole, Claritin, Crestor, Metamucil, Synthroid, Flonase, Voltaren, Cymbalta, Adderall, Xanax, Brilinta, Aldactone, Zestril, Levemir, Lipitor and Keflex. ALLERGIES: TO AMOXICILLIN, AUGMENTIN, TETANUS. SOCIAL HISTORY: No history of smoking or alcohol use. FAMILY HISTORY: Unremarkable. REVIEW OF SYSTEMS: Cardiopulmonary: Denies any chest pain, shortness of breath. GENITOURINARY: No dysuria or hematuria. MUSCULOSKELETAL unremarkable. SKIN unremarkable. ENDOCRINE unremarkable. PSYCHIATRIC unremarkable. NEUROLOGY unremarkable. ENT: Severe nose bleed as mentioned above. HEMATOLOGY anemia. NEUROLOGY unremarkable. PSYCHIATRIC unremarkable. CONSTITUTIONAL: No recent weight loss. No fever, chills, night sweats. PHYSICAL EXAMINATION: He appears comfortable. No apparent distress. VITAL SIGNS: Stable. Blood pressure is 119/59, pulse rate is 74, temperature 98.2. HEENT: examination unremarkable. Conjunctivae pink. Sclerae anicteric. Oral cavity no lesions. NECK: No JVD or lymph node enlargement. CHEST: Clear to auscultation. HEART: Regular rate and rhythm. ABDOMEN: Soft, it was nontender, nondistended. Bowel sounds are positive. No organomegaly. EXTREMITIES: No pedal edema. SKIN: No rashes. NEUROLOGIC: Alert and oriented x3. No focal deficits. LABS: From today WBC 8.1, hemoglobin 7.7, and platelets are normal. He received 1 unit of blood transfusion for hemoglobin of 7 last night. IMPRESSION: 1. Coronary artery disease status post acute myocardial infarction, status post angioplasty with stent placement, presently on aspirin and Brilinta. 2. Severe epistaxis yesterday, status post nasal packing by Dr. Sofia. 3. Black tarry stools and anemia with significant drop in hemoglobin to 7 g/dL requiring one unit of blood transfusion. Most likely the GI bleed is from swallowed blood from significant nosebleed that happened last night. Repeat CBC this afternoon, this evening is 7.7 g/dL. RECOMMENDATIONS: 1. The patient can be discharged and cleared by GI. 2. Continue with omeprazole 20 mg daily. 3. Start iron supplementation. 4. Follow up in the office if he has any GI symptoms. Thank you for this consultation. MMODL / IJN: [id number] /
--- NOTE | 2019-06-18 22:10 | P.DS ---
Providers Date of admission: 06/12/19 04:06 Attending physician: Awa Negron MD Consults: 06/12/19 05:39 Consult Physician Routine Consulting Provider: [facility] Consult Reason/Comments: Post Interventional patient Do you want consulting provider notified?: Already Contacted 06/16/19 13:55 Consult Physician Routine Consulting Provider: Reji Qureshi Consult Reason/Comments: Nose bleed Do you want consulting provider notified?: Yes 06/18/19 07:07 Consult Physician Routine Consulting Provider: Simon Jay Consult Reason/Comments: black stools Do you want consulting provider notified?: Yes Primary care physician: Nikhil Acharya Hospital Course: Diagnoses: -acute STEMI: patient is status post cardiac catheterization with stenting of proximal LAD; Also showed severe disease to RCA; -Acute left nostril epistaxis status post packing by ENT -wide complex tachycardia suspicous for V. tack -acute on chronic CHF with EF OF 30-35%, -Significant anxiety, -diabetes mellitus -hyperlipidemia -hypothyroidism hospital course: This is a pleasant 53-year-old gentleman with a past medical history significant for diabetes, hypertension, dyslipidemia, presented to the hospital with chest discomfort and was diagnosed with acute coronary syndrome/STEMI . He underwent an emergent heart catheterization and stenting of the LAD. On presentation and the following day after stenting he did have an episode of V. tach. The patient subsequently was started on amiodarone IV. The echo revealed impaired LV function was EF between 30-35% with anteroapical hypokinesia. implant for him once to repeat cardiac cath for RCA and stenting and later on AICD placement, however on the day of the procedure patient developed severe left nostril epistaxis need intranasal packing by ENT with significant drop in hemoglobin down to 7.0 that he needed one unit of blood transfusion because of his epistaxis problem and severe blood loss, his cardiac procedures was held, and postponed until he sees his ENT specialist on this coming Saturday as an outpatient, while consultant rn will call him to squeeze him in somewhere soon in their schedule , in the meantime requested the patient to have a LifeVest. patient also will be started on Keflex for antibiotic prophylaxis for his nasal packing , patient told me he was taking Keflex before with no problems. He is ALLERGIC to amoxicillin (lip swelling) on the day of discharge patient remains asymptomatic with no chest pain or dyspnea. No abdominal pain. No nausea vomiting. No change in urine or bowel habits. No more nasal bleeding, no more bleeding from anywhere else. No fever. No headache. No weakness or abnormal sensation, or numbness. Patient was kind of anxious yesterday and psychiatrist evaluated the patient and he was started on Klonopin, however today he is excited is significantly improved and he looks fine, he told me he has a prescription at home and he can manage his anxiety well with this medication and he does not need anymore. patient was requesting and urging the staff to be discharged home today as his friend who was helping him monitor his dogs has to leave this afternoon for medical reasons, I talked to the patient regarding stent in the hospital and he was adamant to be discharged today (as per staff he was going to leave AMA if he is not going to be discharged), patient was cleared for discharge by consultant rn as long as he is a LifeVest as well as by ENT specialist. pt metformin is held because he got cardiac cath and planing to have another one soon, and started on levemir 13 u daily , his sugar is controlled , other home DM meds were not given while inhouse , so we advised pt to keep holding them and to c/w levemir till he sees his physician as outpt and probably till after the second cardiac cath. also pt is instructed to check his sugar 4 times daily and to come to ED if glu more than 400 or less than 70 and he agree, training for insulin injection is provided by staff as per BRANDON dhillon (bed side RN) patient was cleared for discharge by all consults us including ENT, cardiology and psychiatrist Problems and management plan were discussed with the patient and he verbalized understanding and acceptance Patient was found stable and can be discharged home however he needs follow-up as an outpatient. Patient was instructed to follow up with PCP within one week and patient agrees. pt agrees with appointment with ENT and PCP and that cardio will call him Gen: patient is a AAOx3, no distress -Head and neck: Pupils are equal and reactive to light, normal throat swelling. He has a pack in his left nostril with no active bleeding CVS: S1-S2, RRR, no murmur Lungs: B/L CTA, no wheezing Abdomen: soft, no distention, no tenderness, positive bowel sounds Extremity: no leg edema or induration Time spent more than 35 minutes Plan - Discharge Summary Discharge Rx Participant: Yes New Discharge Prescriptions: New Ticagrelor [Brilinta] 90 mg PO BID 30 Days #60 tab Spironolactone [Aldactone] 25 mg PO DAILY #30 tab Aspirin 81 mg PO DAILY #0 chew Amiodarone [Cordarone] 400 mg PO BID #60 tab Furosemide [Lasix] 20 mg PO DAILY #30 tab Atorvastatin [Lipitor] 80 mg PO HS #30 tab Metoprolol Tartrate [Lopressor] 12.5 mg PO BID #60 tab Nitroglycerin Sl Tabs [Nitrostat] 0.4 mg SUBLINGUAL Q5M PRN #25 tab PRN Reason: Chest Pain Lisinopril [Zestril] 2.5 mg PO DAILY #30 tab Oxymetazoline 0.05% Nasl [place] [Afrin 0.05% Nasal [place]] 2 spray NASAL TID #1 bottle Ferrous Sulfate [Iron (65 MG Elemental)] 325 mg PO BID-W/MEALS #60 tab Insulin Detemir (Levemir) [Levemir] 13 unit SQ DAILY@0700 #1 vial Cephalexin [Keflex] 500 mg PO BID 7 Days #14 cap Continue Diclofenac Sodium Gel [Voltaren Gel] 1 applic TOPICAL QID PRN PRN Reason: PAIN IN WRISTS AND HANDS Fluticasone Nasal [place] [Flonase Nasal [place]] 2 spr EA NOSTRIL TID PRN PRN Reason: ALLERGY Rosuvastatin Calcium [Crestor] 20 mg PO QAM DULoxetine HCL [Cymbalta] 60 mg PO QAM ALPRAZolam [Xanax] 0.5 mg PO BID PRN PRN Reason: Anxiety Loratadine [Claritin] 10 mg PO DAILY Levothyroxine Sodium [Synthroid] 25 mcg PO DAILY Dextroamphetamine/Amphetamine [Adderall] 30 mg PO 5XD Psyllium Husk (with Sugar) [Metamucil Powder] 6 gm PO BID PRN PRN Reason: Constipation Omeprazole 20 mg PO DAILY Brimonidine Tartrate [Alphagan P 0.1% Ophth Soln] 1 drops BOTH EYES BID Dasatinib [Sprycel] 100 mg PO DAILY Discontinued metFORMIN HCL [metFORMIN HCL ER] 2,000 mg PO AC-BRKFST Pioglitazone [Actos] 30 mg PO DAILY Metoprolol Succinate (ER) [Toprol Xl] 200 mg PO QAM Liraglutide [Victoza 3-Juan Manuel] 1.8 mg SQ DAILY Testosterone Cypionate [Depo-Testosterone] 1 mg IM Q30D Discharge Medication List DULoxetine HCL [Cymbalta] 60 mg PO QAM 02/09/16 [History] Diclofenac Sodium Gel [Voltaren Gel] 1 applic TOPICAL QID PRN 02/09/16 [History] Fluticasone Nasal [place] [Flonase Nasal [place]] 2 spr EA NOSTRIL TID PRN 02/09/16 [History] Rosuvastatin Calcium [Crestor] 20 mg PO QAM 02/09/16 [History] ALPRAZolam [Xanax] 0.5 mg PO BID PRN 09/01/18 [History] Dextroamphetamine/Amphetamine [Adderall] 30 mg PO 5XD 09/01/18 [History] Levothyroxine Sodium [Synthroid] 25 mcg PO DAILY 09/01/18 [History] Loratadine [Claritin] 10 mg PO DAILY 09/01/18 [History] Omeprazole 20 mg PO DAILY 09/01/18 [History] Psyllium Husk (with Sugar) [Metamucil Powder] 6 gm PO BID PRN 09/01/18 [History] Brimonidine Tartrate [Alphagan P 0.1% [facility] Soln] 1 drops BOTH EYES BID 06/12/19 [History] Dasatinib [Sprycel] 100 mg PO DAILY 06/12/19 [History] Ticagrelor [Brilinta] 90 mg PO BID 30 Days #60 tab 06/16/19 [Rx] Amiodarone [Cordarone] 400 mg PO BID #60 tab 06/18/19 [Rx] Aspirin 81 mg PO DAILY #0 chew 06/18/19 [Rx] Atorvastatin [Lipitor] 80 mg PO HS #30 tab 06/18/19 [Rx] Cephalexin [Keflex] 500 mg PO BID 7 Days #14 cap 06/18/19 [Rx] Ferrous Sulfate [Iron (65 MG Elemental)] 325 mg PO BID-W/MEALS #60 tab 06/18/19 [Rx] Furosemide [Lasix] 20 mg PO DAILY #30 tab 06/18/19 [Rx] Insulin Detemir (Levemir) [Levemir] 13 unit SQ DAILY@0700 #1 vial 06/18/19 [Rx] Lisinopril [Zestril] 2.5 mg PO DAILY #30 tab 06/18/19 [Rx] Metoprolol Tartrate [Lopressor] 12.5 mg PO BID #60 tab 06/18/19 [Rx] Nitroglycerin Sl Tabs [Nitrostat] 0.4 mg SUBLINGUAL Q5M PRN #25 tab 06/18/19 [Rx] Oxymetazoline 0.05% Nasl [place] [Afrin 0.05% Nasal [place]] 2 spray NASAL TID #1 bottle 06/18/19 [Rx] Spironolactone [Aldactone] 25 mg PO DAILY #30 tab 06/18/19 [Rx] Follow up Appointment(s)/Referral(s): Diana Ovalle MD [STAFF PHYSICIAN] - 1 Week (Dr. Ovalle's office will call you with appointment date and time.) [facility], [NON-STAFF] - 1-2 Days Ace Sofia MD [STAFF PHYSICIAN] - 06/23/19 4:00 pm Nikhil Acharya MD [Primary Care Provider] - 06/22/19 8:30 am Patient Instructions/Handouts: Heart Catheterization (DC) Activity/Diet/Wound Care/Special Instructions: cardiac diet Activity is limited until you see your doctor Discharge Disposition: HOME SELF-CARE
--- NOTE | 2019-06-22 11:44 | CDI ---
Documentation Clarification Form Date: 06/22/19 From: Nelida Cordero Phone: If you have a question about this query, please contact Radha Ceja [employer] Trimmer at [phone] between 8am and 5pm. Admit Date: 06/12/19 Discharge Date: 06/18/19 Patient Name: Jeffy Camacho Visit Number: [id number] ATTENTION: The Clinical Documentation Specialists (CDI) and [facility] Coding Staff appreciate your assistance in clarifying documentation. Please respond to the clarification below the line at the bottom and electronically sign. The CDI & [facility] Coding staff will review the response and follow-up if needed. Please note: Queries are made part of the Legal Health Record. If you have any questions, please contact the author of this message via ITS. Dear Dr. Jim Herrera A diagnosis of anemia lacks specificity to accurately reflect your patients severity of condition and clarification is needed. Anemia and hemoccult- positive stool is documented in Dr. Gilbert's consult note. History/Risk Factors: Epistaxis Clinical indicators: Significant drop in hemoglobin, black tarry stools Hemoglobin: 11.1 on admission, 7.0 on 06/18 Hematocrit: 35.7 on admission, 21.6 on 06/18 Treatment: 1 unit of PRBCs transfused, Feosol 325 mg PO bid, monitoring H&H In order to capture the severity of condition, please clarify the type of anemia and etiology if known: Acute blood loss anemia Acute on chronic blood loss anemia Chronic blood loss anemia Iron deficiency anemia Anemia due to malignancy Unable to determine Other, please specify acute blood anemia secondary to epistaxis MTDD
--- NOTE | 2019-06-22 12:05 | CDI ---
Documentation Clarification Form Date: 06/22/19 From: Nelida Cordero Phone: If you have a question about this query, please contact Radha Ceja [employer] Emissions Inspector at [phone] between 8am and 5pm. Admit Date: 06/12/19 Discharge Date: 06/18/19 Patient Name: Jeffy Camacho Visit Number: [id number] ATTENTION: The Clinical Documentation Specialists (CDI) and [facility] Coding Staff appreciate your assistance in clarifying documentation. Please respond to the clarification below the line at the bottom and electronically sign. The CDI & [facility] Coding staff will review the response and follow-up if needed. Please note: Queries are made part of the Legal Health Record. If you have any questions, please contact the author of this message via ITS. Dear Dr. Jim Herrera The patient presented with an acute STEMI. Hypoxemia is documented in Dr. De León's 06/12 progress note. History/Risk Factors: Acute STEMI, V-tach, acute exacerbation of systolic CHF, anemia Tobacco use: None Home oxygen: None Clinical Indicators: shortness of breath, hypoxemia Vital signs: T. 97.8, P. 98, R. 19 on admission then up to 33 3 hours later Pulse oximetry: 98% on admission then down to 90% 6 hours later Lung/Breathing assessment: Diminished breath sounds at bases of lungs, short of breath, Treatment: Continuous Pulse ox O2 - 15 lpm then down to 6 lpm on 06/12 In your professional opinion, can you please clarify if these findings signify one of the following conditions? Acute Respiratory Failure Acute on Chronic Respiratory Failure Chronic Respiratory Failure Acute Respiratory Distress Acute Respiratory Insufficiency Other Diagnosis, please specify Unable to determine pt had acute hypoxic resp failure upon admission ,resolved later and pt was on room air MTDD
== END 2019-06-18 18:15 | disposition home or self-care (01) | DRG 246 ==
LOC: 2SICU 04:06
PROVIDERS: ADMIT Internal Medicine; ATTEND Internal Medicine
PROC: B2111ZZ Fluoroscopy of Multiple Coronary Arteries using Low Osmolar Contrast (ICD-10-PCS; 2019-06-12)
PROC: 027035Z Dilation of Coronary Artery, One Artery with Two Drug-eluting Intraluminal Devices, Percutaneous Approach (ICD-10-PCS; principal; 2019-06-12 04:01)
PROC: 4A023N7 Measurement of Cardiac Sampling and Pressure, Left Heart, Percutaneous Approach (ICD-10-PCS; 2019-06-12 04:01)
PROC: 5A2204Z Restoration of Cardiac Rhythm, Single (ICD-10-PCS; 2019-06-14)
PROC: 30233N1 Transfusion of Nonautologous Red Blood Cells into Peripheral Vein, Percutaneous Approach (ICD-10-PCS; 2019-06-18)
DX: I21.09 ST elevation (STEMI) myocardial infarction involving other coronary artery of anterior wall (principal); I50.23 Acute on chronic systolic (congestive) heart failure; I49.01 Ventricular fibrillation; J96.01 Acute respiratory failure with hypoxia; I47.2 Ventricular tachycardia; C92.90 Myeloid leukemia, unspecified, not having achieved remission; D62 Acute posthemorrhagic anemia; I25.5 Ischemic cardiomyopathy; I11.0 Hypertensive heart disease with heart failure; E03.9 Hypothyroidism, unspecified; E11.9 Type 2 diabetes mellitus without complications; R04.0 Epistaxis; E78.5 Hyperlipidemia, unspecified; F41.9 Anxiety disorder, unspecified; I25.10 Atherosclerotic heart disease of native coronary artery without angina pectoris; J30.9 Allergic rhinitis, unspecified; K21.9 Gastro-esophageal reflux disease without esophagitis; M19.90 Unspecified osteoarthritis, unspecified site; R01.1 Cardiac murmur, unspecified; E78.00 Pure hypercholesterolemia, unspecified; H40.9 Unspecified glaucoma; Z79.84 Long term (current) use of oral hypoglycemic drugs; Z79.890 Hormone replacement therapy; Z79.899 Other long term (current) drug therapy; Z86.14 Personal history of Methicillin resistant Staphylococcus aureus infection; Z90.49 Acquired absence of other specified parts of digestive tract; Z88.1 Allergy status to other antibiotic agents; Z88.0 Allergy status to penicillin; Z88.2 Allergy status to sulfonamides; Z88.7 Allergy status to serum and vaccine; Z82.49 Family history of ischemic heart disease and other diseases of the circulatory system; Z82.61 Family history of arthritis
CPT/HCPCS: 36410; 71045; 76937; 80048; 80053; 80061; 83036; 83605; 83735; 83880; 84132; 84484; 85025; 85027; 85347; 85610; 85730; 86850; 86900; 86901; 86920; 93306; C1874

== ENCOUNTER 2019-07-06 15:05 | Emergency (ER) | payer MEDICARE, OTHER ==
--- NOTE | 2019-07-06 16:13 | ED ---
General Adult HPI - General Chief complaint: Recheck/Abnormal Lab/Rx Stated complaint: PRE SURG Time Seen by Provider: 07/06/19 15:35 Source: patient, RN notes reviewed Mode of arrival: ambulatory Limitations: no limitations - History of Present Illness Initial comments: Patient is a pleasant 53-year-old male presenting to the emergency department by primary care physician. Patient had low blood pressure. Patient did have recent myocardial infarction with stenting complicated by arrhythmia. Patient does have leg test on. Patient is scheduled for repeat angiogram with angioplasty tomorrow. Patient's last hemoglobin was 8.3. There was concern the patient may need blood transfusion prior to procedure tomorrow. Patient states he just feels a little bit lightheaded and has exertional dyspnea. Patient denies chest pain or dyspnea at rest. No leg pain or leg swelling. - Related Data Home Medications Medication Instructions Recorded Confirmed DULoxetine HCL [Cymbalta] 60 mg PO QAM 02/09/16 07/03/19 Diclofenac Sodium Gel [Voltaren 1 applic TOPICAL QID PRN 02/09/16 07/03/19 Gel] ALPRAZolam [Xanax] 0.5 mg PO BID PRN 09/01/18 07/03/19 Dextroamphetamine/Amphetamine 30 mg PO 5XD 09/01/18 07/03/19 [Adderall] Levothyroxine Sodium [Synthroid] 25 mcg PO DAILY 09/01/18 07/03/19 Loratadine [Claritin] 10 mg PO DAILY 09/01/18 07/03/19 Omeprazole 20 mg PO DAILY 09/01/18 07/03/19 Brimonidine Tartrate [Alphagan P 1 drops BOTH EYES BID 06/12/19 07/03/19 0.1% Ophth Soln] Dasatinib [Sprycel] 100 mg PO DAILY 06/12/19 07/03/19 Amiodarone [Cordarone] 200 mg PO BID 07/03/19 07/03/19 Insulin Detemir (Levemir) [Levemir] 18 unit SQ HS 07/03/19 07/03/19 Insulin Detemir (Levemir) [Levemir] 20 unit SQ DAILY@0700 07/03/19 07/03/19 Losartan [Cozaar] 25 mg PO DAILY 07/03/19 07/03/19 Mupirocin 2% Oint [Bactroban 2% 1 applic TOPICAL DAILY 07/03/19 07/03/19 Oint] Previous Rx's Medication Instructions Recorded Ticagrelor [Brilinta] 90 mg PO BID 30 Days #60 tab 06/16/19 Aspirin 81 mg PO DAILY #0 chew 06/18/19 Atorvastatin [Lipitor] 80 mg PO HS #30 tab 06/18/19 Ferrous Sulfate [Iron (65 MG 325 mg PO BID-W/MEALS #60 tab 06/18/19 Elemental)] Furosemide [Lasix] 20 mg PO DAILY #30 tab 06/18/19 Metoprolol Tartrate [Lopressor] 12.5 mg PO BID #60 tab 06/18/19 Nitroglycerin Sl Tabs [Nitrostat] 0.4 mg SUBLINGUAL Q5M PRN #25 tab 06/18/19 Spironolactone [Aldactone] 25 mg PO DAILY #30 tab 06/18/19 Allergies Allergy/AdvReac Type Severity Reaction Status Date / Time amoxicillin trihydrate Allergy Rash/Hives Verified 07/03/19 17:09 [From Augmentin] latanoprost Allergy Swelling Verified 07/03/19 17:09 potassium clavulanate Allergy Rash/Hives Verified 07/03/19 17:09 [From Augmentin] sulfamethoxazole Allergy Rash/Hives Verified 07/03/19 17:09 [From Bactrim] Tetanus Vaccines and Toxoid Allergy Swelling Verified 07/03/19 17:09 [Tetanus Vaccines & Toxoid] trimethoprim [From Bactrim] Allergy Rash/Hives Verified 07/03/19 17:09 Review of Systems ROS Statement: Those systems with pertinent positive or pertinent negative responses have been documented in the HPI. ROS Other: All systems not noted in ROS Statement are negative. Constitutional: Denies: fever Eyes: Denies: eye pain ENT: Denies: ear pain Respiratory: Reports: as per HPI. 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 Early glaucoma. Deaf lt ear, [place] rt ear. Last Myocardial Infarction Date:: 06/12/19 History of Any Multi-Drug Resistant Organisms: MRSA Date of last positivie culture/infection: 07/24/18 MDRO Source:: BACK Past Surgical History: Cholecystectomy, Heart Catheterization With Stent, Orthopedic Surgery Additional Past Surgical History / Comment(s): Double vision correction. PTCA w/ 2 stents 06/12/19. left wrist surgery. RT KNEE SX, PUT WICK IN TO DRAIN MRSA-10-12 YEARS AGO Past Anesthesia/Blood Transfusion Reactions: No Reported Reaction Date of Last Stent Placement:: 06/12/19 Past Psychological History: ADD/ADHD, Anxiety, Bipolar, Depression Smoking Status: Never smoker Past Alcohol Use History: None Reported Past Drug Use History: None Reported - Past Family History Mother Family Medical History: Congestive Heart Failure (CHF), Deep Vein Thrombosis (DVT), Myocardial Infarction (NH), Rheumatoid Arthritis (RA) Additional Family Medical History / Comment(s): Mother of a NH at the age of 78yrs. Father Family Medical History: Cancer Additional Family Medical History / Comment(s): lung Brother(s) Additional Family Medical History / Comment(s): AAA General Exam Limitations: no limitations General appearance: alert, in no apparent distress Head exam: Present: normocephalic Eye exam: Present: normal appearance, PERRL ENT exam: Present: normal oropharynx Neck exam: Present: normal inspection Respiratory exam: Present: normal lung sounds bilaterally. Absent: chest wall tenderness Cardiovascular Exam: Present: regular rate, normal rhythm Expanded Peripheral pulses: 2+: Radial (R), Radial (L), Posterior Tibialis (R), Posterior Tibialis (L), Dorsalis Pedis (R), Dorsalis Pedis (L) GI/Abdominal exam: Present: soft. Absent: tenderness Extremities exam: Present: normal inspection. Absent: pedal edema, calf tenderness Neurological exam: Present: alert Psychiatric exam: Present: normal affect, normal mood Skin exam: Present: normal color Course Vital Signs 07/06/19 07/06/19 15:15 17:08 Temperature 97.5 F L 98.8 F Pulse Rate 73 82 Respiratory 19 18 Rate Blood Pressure 92/54 94/54 O2 Sat by Pulse 100 98 Oximetry EKG Findings - EKG Comments: EKG Findings:: Normal sinus rhythm at 80. AK 180. QRS 92. QT 392. QTC 452. Normal axis. Normal QRS. T wave inversion in V2 with downward QRS. Medical Decision Making - Medical Decision Making Case was discussed in detail with Dr. Acharya who is familiar with this patient. He would prefer if patient could stay in the hospital for gentle hydration prior to angioplasty tomorrow. He states blood pressure was in the 90s there as well. Patient is reevaluated and is wondering around in the halls fully dressed requesting discharge. Patient is updated on results and recommendations. Patient refuses admission. Patient is agreeable to follow-up tomorrow as planned for angioplasty and preoperative testing. Patient is agreeable to a small fluid bolus prior to leaving. - Lab Data Result diagrams: 07/06/19 16:00 07/06/19 16:00 Lab Results 07/06/19 07/06/19 07/06/19 Range/Units 16:00 16:00 16:00 WBC 6.0 (3.8-10.6) k/uL RBC 3.12 L (4.30-5.90) m/uL Hgb 8.8 L (13.0-17.5) gm/dL Hct 27.2 L (39.0-53.0) % MCV 87.2 (80.0-100.0) fL MCH 28.2 (25.0-35.0) pg MCHC 32.3 (31.0-37.0) g/dL RDW 16.5 H (11.5-15.5) % Plt Count 243 (150-450) k/uL Neutrophils % 60 % Lymphocytes % 30 % Monocytes % 7 % Eosinophils % 2 % Basophils % 0 % Neutrophils # 3.6 (1.3-7.7) k/uL Lymphocytes # 1.8 (1.0-4.8) k/uL Monocytes # 0.4 (0-1.0) k/uL Eosinophils # 0.1 (0-0.7) k/uL Basophils # 0.0 (0-0.2) k/uL Hypochromasia Slight Poikilocytosis Slight Anisocytosis Slight PT (9.0-12.0) sec INR (<1.2) APTT (22.0-30.0) sec Sodium 138 (137-145) mmol/L Potassium 4.4 (3.5-5.1) mmol/L Chloride 103 (98-107) mmol/L Carbon Dioxide 23 (22-30) mmol/L Anion Gap 12 mmol/L BUN 33 H (9-20) mg/dL Creatinine 1.47 H (0.66-1.25) mg/dL Est GFR (CKD-EPI)AfAm 61 (>60 ml/min/1.73 sqM) Est GFR (CKD-EPI)NonAf 53 (>60 ml/min/1.73 sqM) Glucose 108 H (74-99) mg/dL Plasma Lactic Acid Will 0.9 (0.7-2.0) mmol/L Calcium 8.8 (8.4-10.2) mg/dL Phosphorus 5.4 H (2.5-4.5) mg/dL Magnesium 1.9 (1.6-2.3) mg/dL Total Bilirubin 1.1 (0.2-1.3) mg/dL AST 27 (17-59) U/L ALT 39 (21-72) U/L Alkaline Phosphatase 55 (38-126) U/L Creatine Kinase 58 (55-170) U/L Troponin I (0.000-0.034) ng/mL Total Protein 7.8 (6.3-8.2) g/dL Albumin 4.4 (3.5-5.0) g/dL Blood Type Blood Type Recheck Bld Type Recheck Status Antibody Screen Spec Expiration Date 07/06/19 07/06/19 07/06/19 Range/Units 16:00 16:00 16:00 WBC (3.8-10.6) k/uL RBC (4.30-5.90) m/uL Hgb (13.0-17.5) gm/dL Hct (39.0-53.0) % MCV (80.0-100.0) fL MCH (25.0-35.0) pg MCHC (31.0-37.0) g/dL RDW (11.5-15.5) % Plt Count (150-450) k/uL Neutrophils % % Lymphocytes % % Monocytes % % Eosinophils % % Basophils % % Neutrophils # (1.3-7.7) k/uL Lymphocytes # (1.0-4.8) k/uL Monocytes # (0-1.0) k/uL Eosinophils # (0-0.7) k/uL Basophils # (0-0.2) k/uL Hypochromasia Poikilocytosis Anisocytosis PT 10.1 (9.0-12.0) sec INR 0.9 (<1.2) APTT 23.3 (22.0-30.0) sec Sodium (137-145) mmol/L Potassium (3.5-5.1) mmol/L Chloride (98-107) mmol/L Carbon Dioxide (22-30) mmol/L Anion Gap mmol/L BUN (9-20) mg/dL Creatinine (0.66-1.25) mg/dL Est GFR (CKD-EPI)AfAm (>60 ml/min/1.73 sqM) Est GFR (CKD-EPI)NonAf (>60 ml/min/1.73 sqM) Glucose (74-99) mg/dL Plasma Lactic Acid Will (0.7-2.0) mmol/L Calcium (8.4-10.2) mg/dL Phosphorus (2.5-4.5) mg/dL Magnesium (1.6-2.3) mg/dL Total Bilirubin (0.2-1.3) mg/dL AST (17-59) U/L ALT (21-72) U/L Alkaline Phosphatase (38-126) U/L Creatine Kinase (55-170) U/L Troponin I 0.027 (0.000-0.034) ng/mL Total Protein (6.3-8.2) g/dL Albumin (3.5-5.0) g/dL Blood Type A Positive Blood Type Recheck A Pos Bld Type Recheck Status No Antibody Screen NEGATIVE Spec Expiration Date 07/09/2019 - 2299 - Radiology Data Radiology results: image reviewed (The x-ray shows minimal residual right costophrenic angle effusion.) Disposition Clinical Impression: Dehydration Disposition: HOME SELF-CARE Condition: Stable Instructions (If sedation given, give patient instructions): Dehydration (ED) Additional Instructions: Please follow-up tomorrow for angioplasty as planned. Please hold Lasix until follow-up and discuss this with cardiology. Return for chest pain or difficulty in breathing, weakness, lightheadedness, worsening symptoms or any other concerns. Is patient prescribed a controlled substance at d/c from ED?: No Referrals: Nikhil Acharya MD [Primary Care Provider] - 1-2 days Diana Ovalle MD [STAFF PHYSICIAN] - 1-2 days Time of Disposition: 17:36
[2019-07-06 16:18] LABS: Anisocytosis Slight; Basophils % (A) 0 %; Eosinophils # (A) 0.1 k/uL (0-0.7); Eosinophils % (A) 2 %; HCT 27.2 % (39.0-53.0); HGB 8.8 gm/dL (13.0-17.5); Hypochromasia Slight; Lymphocytes # (A) 1.8 k/uL (1.0-4.8); Lymphocytes % (A) 30 %; MCH 28.2 pg (25.0-35.0); MCHC 32.3 g/dL (31.0-37.0); MCV 87.2 fL (80.0-100.0); Mean Platelet Volume 7.2; Monocytes # (A) 0.4 k/uL (0-1.0); Monocytes % (A) 7 %; Neutrophils # (A) 3.6 k/uL (1.3-7.7); Neutrophils % (A) 60 %; Platelet Count 243 k/uL (150-450); Poikilocytosis Slight; RBC 3.12 m/uL (4.30-5.90); RDW 16.5 % (11.5-15.5)
--- NOTE | 2019-07-06 16:21 | XR ---
EXAMINATION TYPE: XR chest 2V DATE OF EXAM: 07/06/2019 COMPARISON: 06/13/2019 INDICATION: Weakness TECHNIQUE: Frontal and lateral views of the chest are obtained. FINDINGS: The heart size is normal. The pulmonary vasculature is normal. Minimal costophrenic angle fluid collection is present on the right. This is improved. Previous left perihilar infiltrate has resolved. IMPRESSION: 1. Minimal residual right costophrenic angle effusion
[2019-07-06 16:26] LABS: INR 0.9 (<1.2); Partial Thromboplastin Time 23.3 sec (22.0-30.0); Prothrombin Time 10.1 sec (9.0-12.0)
[2019-07-06 16:29] LABS: Albumin 4.4 g/dL (3.5-5.0); Calcium 8.8 mg/dL (8.4-10.2); Magnesium 1.9 mg/dL (1.6-2.3); Phosphorus 5.4 mg/dL (2.5-4.5); Potassium 4.4 mmol/L (3.5-5.1); Total Bilirubin 1.1 mg/dL (0.2-1.3); Total Protein 7.8 g/dL (6.3-8.2)
[2019-07-06 17:10] VITALS: BP 94/54; PULSE 82; RESP 18; TEMP 98.8
== END 2019-07-06 18:10 | disposition home or self-care (01) ==
LOC: EC 15:05
DX: E86.0 Dehydration (principal); I10 Essential (primary) hypertension; I25.2 Old myocardial infarction; F41.9 Anxiety disorder, unspecified; F31.9 Bipolar disorder, unspecified; F90.9 Attention-deficit hyperactivity disorder, unspecified type; E11.9 Type 2 diabetes mellitus without complications; K21.9 Gastro-esophageal reflux disease without esophagitis; E78.5 Hyperlipidemia, unspecified; M19.90 Unspecified osteoarthritis, unspecified site; E07.9 Disorder of thyroid, unspecified; H40.9 Unspecified glaucoma; Z79.890 Hormone replacement therapy; Z79.4 Long term (current) use of insulin; Z79.899 Other long term (current) drug therapy; Z88.0 Allergy status to penicillin; Z88.2 Allergy status to sulfonamides; Z88.1 Allergy status to other antibiotic agents; Z88.7 Allergy status to serum and vaccine; Z88.8 Allergy status to other drugs, medicaments and biological substances; Z90.49 Acquired absence of other specified parts of digestive tract; Z95.5 Presence of coronary angioplasty implant and graft; Z86.14 Personal history of Methicillin resistant Staphylococcus aureus infection; Z82.49 Family history of ischemic heart disease and other diseases of the circulatory system; Z85.6 Personal history of leukemia
CPT/HCPCS: 36415; 71046; 80053; 82550; 83605; 83735; 84100; 84484; 85025; 85610; 85730; 86850; 86900; 86901; 93005; 99285

== ENCOUNTER → 2019-07-11 | Outpatient (CLI) | payer MEDICARE, OTHER ==
[2019-07-11 12:06] LABS: Anisocytosis Slight; HGB 7.8 gm/dL (13.0-17.5); Hypochromasia Marked; MCH 27.6 pg (25.0-35.0); MCHC 30.1 g/dL (31.0-37.0); MCV 91.8 fL (80.0-100.0); Platelet Count 205 k/uL (150-450); Poikilocytosis Slight; RBC 2.83 m/uL (4.30-5.90); RDW 17.2 % (11.5-15.5); WBC 7.2 k/uL (3.8-10.6)
[2019-07-11 17:35] LABS: African American GFR (CKD) 65.1 (60.0-200.0); Albumin 3.9 g/dL (3.80-4.90); Albumin/Globulin Ratio 1.63 (1.60-3.17); Anion Gap 7.9 mmol/L (4.00-12.00); BUN/Creat Ratio 12.14 Ratio (12.00-20.00); Calcium 8.3 mg/dL (8.7-10.3); Carbon Dioxide 26.1 mmol/L (21.6-31.8); Globulin 2.4 g/dL (1.6-3.3); Non-African American GFR(CKD) 56.2 (60.0-200.0); Potassium 4.3 mmol/L (3.5-5.5); Total Bilirubin 1.2 mg/dL (0.3-1.2); Total Protein 6.3 g/dL (6.2-8.2)
== END | disposition home or self-care (01) ==
LOC: LABWHC1 11:48
PROVIDERS: ATTEND Nurse Practitioner Adult Health
DX: I25.5 Ischemic cardiomyopathy (principal); N18.9 Chronic kidney disease, unspecified; D64.9 Anemia, unspecified
CPT/HCPCS: 36415; 80053; 85027

== ENCOUNTER 2019-07-24 09:38 | Day surgery (SDC) | payer MEDICARE, OTHER ==
[~2019-07-24 09:38] MED LIST: ALPRAZolam 0.25 MG TAB PO PRN; ALPRAZolam 0.5 MG TAB PO PRN; ASPIRIN 325 MG TAB PO STA; ATORVASTATIN 80 MG TAB PO ONE; NITROGLYCERIN SL TABS 0.4 MG TAB SUBLINGUAL PRN; SODIUM CHLORIDE 0.9% 1,000 ML in EMPTY BAG 1 BAG IV ONE
[2019-07-24 10:28] LABS: Glucose,Whole Blood 88 mg/dL (75-99)
[2019-07-24 10:34] LABS: Anisocytosis Slight; Basophils % (A) 1 %; Eosinophils # (A) 0.1 k/uL (0-0.7); Eosinophils % (A) 2 %; Hypochromasia Moderate; Lymphocytes # (A) 1.6 k/uL (1.0-4.8); Lymphocytes % (A) 28 %; MCH 28.6 pg (25.0-35.0); MCHC 32.6 g/dL (31.0-37.0); MCV 87.6 fL (80.0-100.0); Mean Platelet Volume 8.6; Monocytes # (A) 0.4 k/uL (0-1.0); Monocytes % (A) 8 %; Neutrophils # (A) 3.4 k/uL (1.3-7.7); Neutrophils % (A) 60 %; Platelet Count 255 k/uL (150-450); Poikilocytosis Moderate; RBC 3.31 m/uL (4.30-5.90); RDW 16.4 % (11.5-15.5); WBC 5.6 k/uL (3.8-10.6)
[2019-07-24 10:38] LABS: Calcium 8.1 mg/dL (8.4-10.2); Potassium 3.8 mmol/L (3.5-5.1)
[2019-07-24 10:40] LABS: HGB 9.5 gm/dL (13.0-17.5)
[2019-07-24] MEDS ORDERED: fentaNYL (PF) 50 MCG/ML 2 ML AMP ONE (12:14)
[2019-07-24] MEDS ORDERED: LIDOCAINE 1% INJ 10MG/ML (20 ML MDV) ONE (12:15)
[2019-07-24] MEDS ORDERED: VERAPAMIL 2.5 MG/ML 2 ML AMP ONE (12:19)
[2019-07-24] MEDS ORDERED: fentaNYL (PF) 50 MCG/ML 2 ML AMP IV ONE (12:34)
[2019-07-24] MEDS: LIDOCAINE 1% INJ 10MG/ML (20 ML MDV) SQ ONE ×2 (12:40→12:58)
[2019-07-24] MEDS ORDERED: MIDAZOLAM 2 MG/2 ML VIAL IV ONE (12:41)
[2019-07-24] MEDS ORDERED: BIVALIRUDIN BOLUS 250 MG/50 ML IV ONE (13:00)
[2019-07-24] MEDS ORDERED: BIVALIRUDIN 250 MG in SODIUM CHLORIDE 0.9% 50 ML IV ONE (13:01)
[2019-07-24] MEDS ORDERED: NITROGLYCERIN 1000MCG/10ML SYRINGE INTRACORON ONE (13:05)
[2019-07-24] MEDS ORDERED: IOPAMIDOL-370 125ML BTL INJ ONE (13:15)
[2019-07-24] MEDS ORDERED: RX INFO: IV CONTRAST WAS GIVEN 1 EACH MISC MISCELLANE PRN (13:22)
[2019-07-24] MEDS ORDERED: ZOLPIDEM 5 MG TAB PO PRN (13:22)
[2019-07-24] MEDS ORDERED: ATROPINE SULFATE 0.1 MG/ML 10ML SYRINGE IV PRN (13:22)
[2019-07-24] MEDS ORDERED: NITROGLYCERIN SL TABS 0.4 MG TAB SUBLINGUAL PRN ×2 (13:22→13:23)
[2019-07-24] MEDS ORDERED: MAG HYDROX/AL HYDROX/SIMETH 30 ML CUP PO PRN (13:22)
[2019-07-24] MEDS ORDERED: ALPRAZolam 0.5 MG TAB PO PRN (13:23)
[2019-07-24] MEDS ORDERED: DICLOFENAC SODIUM GEL 100 GM TUBE TOPICAL PRN (13:23)
[2019-07-24] MEDS ORDERED: SODIUM CHLORIDE 0.9% 1,000 ML IV SCH (13:30)
--- NOTE | 2019-07-24 14:21 | AS ---
ARTERIAL STUDY CORONARY ANGIOPLASTY PROCEDURE NOTE: Mr. Camacho is a 53-year-old male who presented a month ago with an acute myocardial infarction, was found to have a totally occluded LAD, underwent stenting of that vessel. He was scheduled to undergo stenting of the right PDA because of significant lesion, but the procedure was postponed because of anemia and epistaxis. Because of his anatomy, recommendation was made regarding angioplasty and stenting. The procedures, risks, and complications were discussed with the patient who is in full understanding and agreement. PROCEDURE: Patient was brought to the laboratory technology teacher in a fasting semi-sedated state after receiving fentanyl and Benadryl and achieving moderate conscious sedated state. Multiple attempts to cannulate the right radial artery were unsuccessful. At that time using Xylocaine anesthesia assist salvaging technique, a 6-Macedonian sheath was introduced in the right femoral artery. Following that, the 6-Macedonian FR4 guiding catheter introduced into the system after cannulating the right coronary ostium, a 0.014 balanced medium weight J-wire was advanced across the lesion, positioned distally. Then a 2.0 x 12 mm Trek balloon was advanced, 1 inflation at 8 atmospheres was done. Following that, the balloon was removed and a 2.0 x 15 mm [place] Resolute stent was deployed post dilated to 16 atmospheres. After the last inflation, after appropriate wait, the balloon and the guidewire were withdrawn back in the guiding catheter. Images were obtained and repeated. Those images reveal stable successful stenting. At that point, the guiding catheter, the balloon and the guidewire were removed. The sheath was removed. Hemostasis was obtained with deployment of an Angio-Seal. There was no immediate complication. Patient is returned to his room in stable condition. Of note, the patient received Angiomax per protocol and was continued on Brilinta. He had chest discomfort with the inflation that resulted in the procedure. RESULTS: Successful stenting of the right PDA with reduction of stenosis from 80% to 0%. RECOMMENDATION: Patient will be continued on aspirin, Brilinta, and beta janiya as well as statin. The importance of dual antiplatelet treatment were discussed with the patient and his family who are in full understanding and agreement. Duration of the procedure is 38 minutes. MMODL / IJN: [id number] /
--- NOTE | 2019-07-24 14:24 | LTR ---
DATE OF SERVICE: 07/24/2019 RE: Jeffy Camacho Dear Dr. Acharya; I had the pleasure to perform coronary angioplasty and stenting on Mr. Camacho at [facility] on July 24 and a full copy of the procedure note will be forwarded to you. In brief, he was found to have significant obstructive disease involving the right PDA, underwent successful stenting of that vessel. and hopefully this procedure will stabilized his status. Thank you again for allowing me to participate in this patient's carte. Please feel free to call for any questions. Sincerely yours, Diana Ovalle MD MMFARHANL / APOLINARN: [id number] /
[2019-07-24 16:52] LABS: Glucose,Whole Blood 208 mg/dL (75-99)
[2019-07-24] MEDS: FERROUS SULFATE 325 MG TAB PO SCH (19:40)
[2019-07-24] MEDS: NON FORMULARY DRUG (Dextroamphetamine/Amphetamine [Adderall] 30 MG) PO SCH ×3 (19:40→22:41)
[2019-07-24 20:09] VITALS: RESP 18
[2019-07-24 20:36] LABS: Glucose,Whole Blood 228 mg/dL (75-99)
[2019-07-24] MEDS ORDERED: ATORVASTATIN 80 MG TAB PO SCH (21:00)
[2019-07-24] MEDS ORDERED: NON FORMULARY DRUG (Dasatinib [Sprycel] 100 MG) PO SCH (21:00)
[2019-07-24] MEDS: BRIMONIDINE TARTRATE 0.2% DROPS 5 ML BTL BOTH EYES SCH (21:12)
[2019-07-24] MEDS: METOPROLOL TARTRATE 12.5 MG TAB PO SCH (21:13)
[2019-07-24] MEDS: TICAGRELOR 90 MG TAB PO SCH (21:13)
[2019-07-24] MEDS: INSULIN DETEMIR (LEVEMIR) 100 UNIT/ML SYR SQ SCH (21:13)
[2019-07-25 03:55] VITALS: TEMP 97.9
[2019-07-25 06:01] LABS: Glucose,Whole Blood 94 mg/dL (75-99)
[2019-07-25] MEDS: NON FORMULARY DRUG (Dextroamphetamine/Amphetamine [Adderall] 30 MG) PO SCH (06:01)
[2019-07-25] MEDS: FERROUS SULFATE 325 MG TAB PO SCH (06:06)
[2019-07-25] MEDS ORDERED: LEVOTHYROXINE 25 MCG TAB PO SCH (06:30)
[2019-07-25 06:35] LABS: African American GFR (CKD) >90 (>60 ml/min/1.73 sqM); Anion Gap 8 mmol/L; Blood Urea Nitrogen 13 mg/dL (9-20); Carbon Dioxide 24 mmol/L (22-30); Chloride 108 mmol/L (98-107); Glucose 92 mg/dL (74-99); Non-African American GFR(CKD) >90 (>60 ml/min/1.73 sqM); Potassium 4.1 mmol/L (3.5-5.1); Sodium 140 mmol/L (137-145)
[2019-07-25] MEDS ORDERED: PANTOPRAZOLE 40 MG TABLET PO SCH (07:30)
[2019-07-25] MEDS: TICAGRELOR 90 MG TAB PO SCH (08:30)
[2019-07-25] MEDS: METOPROLOL TARTRATE 12.5 MG TAB PO SCH (08:30)
[2019-07-25] MEDS: INSULIN DETEMIR (LEVEMIR) 100 UNIT/ML SYR SQ SCH (08:31)
[2019-07-25] MEDS: BRIMONIDINE TARTRATE 0.2% DROPS 5 ML BTL BOTH EYES SCH (08:31)
[2019-07-25] MEDS ORDERED: LORATADINE 10 MG TAB PO SCH (09:00)
[2019-07-25] MEDS ORDERED: ASPIRIN 81 MG PO SCH (09:00)
[2019-07-25] MEDS ORDERED: SPIRONOLACTONE 25 MG TAB PO SCH (09:00)
[2019-07-25] MEDS ORDERED: AMIODARONE 200 MG TAB PO SCH (09:00)
[2019-07-25] MEDS ORDERED: DULoxetine HCL 60 MG CAPSULE.DR PO SCH (09:00)
[2019-07-25] MEDS ORDERED: LOSARTAN 25 MG TAB PO SCH (09:00)
[2019-07-25 11:00] VITALS: BP 120/61; PULSE 80
--- NOTE | 2019-07-25 11:27 | PN ---
PROGRESS NOTE Mr. Camacho is a 53-year-old male who presented a few weeks ago with an acute myocardial infarction and underwent stenting of the LAD. He was admitted electively to undergo stenting of the right PDA. He has underwent the procedure yesterday. He is doing well this morning, ambulating without difficulty. Denying any chest pain. No dizziness. No palpitation. No nausea. He continues to be on aspirin once a day, amiodarone 200 mg daily, Lipitor 80 mg daily, iron twice a day, insulin, levothyroxine, loratadine, losartan 25 mg daily, metoprolol tartrate 12.5 mg twice a day, spironolactone 12.5 mg daily and Brilinta 90 mg twice a day. PHYSICAL EXAMINATION: Blood pressure 112/60 with a heart rate in the 70s. LUNGS: Clear. Heart: Regular rate and rhythm, S1, S2. No S3. No rub. ABDOMEN: Soft and nontender. EXTREMITIES: No edema. Right femoral pulses intact. LAB DATA: Lab data revealed BUN and creatinine 13 and 0.9, potassium 4.1. EKG revealed no acute changes. IMPRESSION: 1. Status post stenting of the right PDA. 2. History of ischemic cardiomyopathy. 3. Status post stenting of the LAD. 4. Anemia, stable. 5. Prior renal insufficiency, stable. RECOMMENDATIONS: From the cardiac standpoint, he should be able to be discharged home today and followed as an outpatient. JACKIE / KADE: [id number] /
[2019-07-25 11:32] VITALS: BMI 29.9
== END 2019-07-25 11:54 | disposition home or self-care (01) ==
LOC: CATHCVL 09:38 → 3SCARD 15:28 → CATHCVL 07-25 11:54
PROVIDERS: ATTEND Internal Medicine Interventional Cardiology
DX: I25.10 Atherosclerotic heart disease of native coronary artery without angina pectoris (principal); I25.2 Old myocardial infarction; I25.5 Ischemic cardiomyopathy; D64.9 Anemia, unspecified; N28.9 Disorder of kidney and ureter, unspecified
CPT/HCPCS: 80048; 85025

== ENCOUNTER → 2019-08-11 | Outpatient (CLI) | payer MEDICARE, OTHER ==
[2019-08-11 19:36] LABS: African American GFR (CKD) 87.1 (60.0-200.0); Non-African American GFR(CKD) 75.2 (60.0-200.0)
== END | disposition home or self-care (01) ==
LOC: LABWHC1 13:05
PROVIDERS: ATTEND Otolaryngology
DX: R22.1 Localized swelling, mass and lump, neck (principal)
CPT/HCPCS: 36415; 82565; 84520

== ENCOUNTER → 2019-08-17 | Outpatient (CLI) | payer MEDICARE, OTHER ==
--- NOTE | 2019-08-17 14:37 | CT ---
EXAMINATION TYPE: CT soft tissue neck w con DATE OF EXAM: 08/17/2019 HISTORY: Swelling/mass/lump left side neck COMPARISON chest x-ray July 06, 2019 CT DLP: 644 mGycm. Automated Exposure Control for Dose Reduction was Utilized. TECHNIQUE: CT scan of the neck is performed with IV Contrast, patient injected with 100 mL of Isovue 300, axial images are obtained, coronal and sagittal reformatted images are reviewed. FINDINGS: Airway: Partial visualization of the small to moderate size right pleural effusion extending to lung apex level. This appears new from recent chest x-ray and warrants follow-up. Parotid/submandibular glands: Corresponding to palpable abnormality metallic BB placed axial image 41 , There is low dense or cystic thin-walled lesion with Hounsfield units averaging near 0. This measur es 2.0 x 2.0 cm axial image 41 x 3.4 cm craniocaudal dimension coronal image 54. This is within the i nferior posterior aspect of the parotid gland Carotid/Vascular Structures: No significant focal plaque at carotid bulb level bilaterally . Osseous Structures: Mild/moderate multilevel spurring and disc space narrowing throughout the cervica l spine. Vertebral facet degenerative changes causing multilevel bilateral neural foraminal narrowing is noted. Other: Prominent but subcentimeter nodes throughout the neck bilaterally. No greater than 1 cm neck l ymph nodes. IMPRESSION: As above, there is 3.4 cm thin-walled cystic lesion posterior aspect left parotid gland c ould reflect cystic neoplasm. No suspicious nodularity or enhancement or thickened septa. Imaging kaleb ded fine-needle aspiration can be performed for further evaluation if desired.
== END | disposition home or self-care (01) ==
LOC: RADCTMAIN 13:26
PROVIDERS: ATTEND Otolaryngology
DX: K11.8 Other diseases of salivary glands (principal); R22.1 Localized swelling, mass and lump, neck
CPT/HCPCS: 70491; Q9967

== ENCOUNTER 2019-08-28 08:59 | Day surgery (SDC) | payer MEDICARE, OTHER ==
[2019-08-28 09:12] VITALS: RESP 20; TEMP 98.2
[2019-08-28 09:41] LABS: Glucose,Whole Blood 159 mg/dL (75-99)
[2019-08-28 10:25] VITALS: BP 120/68; PULSE 70
--- NOTE | 2019-08-28 12:52 | US ---
EXAMINATION TYPE: US FNA first lesion DATE OF EXAM: 08/28/2019 HISTORY: Left parotid cystic mass. FINDINGS: Maximal barrier technique was utilized. Hand hygiene achieved with soap and water and alco hol-based hand rub. The skin overlying a suitable path to the patient's left parotid mass in the left neck was localized with ultrasound and the overlying skin prepped and draped. Ultrasound was utilized with forklift technician nique. Lidocaine was used for local anesthesia. A 21-gauge needle was advanced under ultrasound kaleb dance and aspiration of approximately 7 cc yellow fluid Specimen submitted to Pathology. Following t he procedure, hemostasis achieved and the patient is discharged in stable condition without complicat ion. IMPRESSION:STATUS POST ULTRASOUND GUIDED ASPIRATION BIOPSY OF left parotid MASS, PATHOLOGY IS PENDING . THIS PROCEDURE IS PERFORMED BY THE UNDERSIGNED.
== END 2019-08-28 10:35 | disposition home or self-care (01) ==
LOC: RADPROMAIN 08:59
PROVIDERS: ATTEND Otolaryngology
DX: K11.6 Mucocele of salivary gland (principal)
CPT/HCPCS: 10005; 88173; 88305

== ENCOUNTER → 2019-09-16 | Outpatient (CLI) | payer MEDICARE, OTHER ==
[2019-09-16 13:29] LABS: ALT 51 U/L (4-49); AST 43 U/L (17-59); African American GFR (CKD) >90 (>60 ml/min/1.73 sqM); Albumin 4.8 g/dL (3.5-5.0); Albumin/Globulin Ratio 1.3; Alkaline Phosphatase 55 U/L (38-126); Anion Gap 10 mmol/L; Blood Urea Nitrogen 16 mg/dL (9-20); Calcium 8.9 mg/dL (8.4-10.2); Carbon Dioxide 27 mmol/L (22-30); Chloride 102 mmol/L (98-107); Globulin 3.7 g/dL; Glucose 125 mg/dL (74-99); Non-African American GFR(CKD) 85 (>60 ml/min/1.73 sqM); Potassium 4.4 mmol/L (3.5-5.1); Sodium 139 mmol/L (137-145); Total Bilirubin 1.2 mg/dL (0.2-1.3); Total Protein 8.5 g/dL (6.3-8.2)
[2019-09-16 14:19] LABS: Cholesterol 198 mg/dL (<200); HDL Cholesterol 42 mg/dL (40-60); LDL Cholesterol,Calculated 92 mg/dL (0-99); Triglycerides 319 mg/dL (<150)
== END | disposition home or self-care (01) ==
LOC: LABWHC1 12:08
PROVIDERS: ATTEND Internal Medicine Interventional Cardiology
DX: E78.2 Mixed hyperlipidemia (principal)
CPT/HCPCS: 36415; 80053; 80061

== ENCOUNTER → 2020-01-19 | Outpatient (CLI) | payer MEDICARE, OTHER ==
--- NOTE | 2020-01-19 16:29 | CT ---
EXAMINATION TYPE: CT chest wo con DATE OF EXAM: 01/19/2020 COMPARISON: None HISTORY: Abnormal CXR per patient CT DLP: [address] of the chest was performed with lung and mediastinal window settings submitted. The la ck of contrast limits evaluation of the vascular, mediastinal and parenchymal structures including th e upper abdomen. LUNGS: The lungs are clear and free of infiltrate. No atelectasis. No pulmonary nodule or mass is de tected. Bilateral right greater than left pleural effusions noted. On the right pleural effusion mk ures 5.1 cm AP dimension on the left 1.8 cm. Mild atelectasis noted right lung base. The lungs are ot herwise clear. MEDIASTINUM/GUANACO: Thoracic aorta is of normal caliber with limited evaluation given lack of contrast . The heart is not enlarged. No evidence for mediastinal mass. No lymph nodes greater than 1cm. UPPER ABDOMEN: No significant abnormality is seen. OTHER: No significant other abnormality. IMPRESSION: 1. Right greater than left pleural effusions as noted.
== END | disposition home or self-care (01) ==
LOC: RADCTMAIN 15:38
PROVIDERS: ATTEND Family Medicine
DX: J90 Pleural effusion, not elsewhere classified (principal)
CPT/HCPCS: 71250

== ENCOUNTER 2020-03-16 13:02 | Day surgery (SDC) | payer MEDICARE, OTHER ==
--- NOTE | 2020-03-16 13:57 | US ---
ULTRASOUND GUIDED FNA LEFT PAROTID BIOPSY: CLINICAL HISTORY: Left parotid cyst FINDINGS: The procedure was explained to the patient. The risks, complications, benefits and alternatives were discussed and any questions were answered. Informed consent was obtained. Patient was placed supin e on the ultrasound table and prepped and draped in the usual sterile fashion. Utilizing a 25 gauge needle, a single pass was made into the left parotid cyst. Patient was stable throughout the procedure. Pathology is pending. All elements of maximal barrier technique were utilized. IMPRESSION: 1. Successful ultrasound guided FNA left parotid cyst.
[2020-03-16 14:51] VITALS: TEMP 98.2
[2020-03-16 14:56] VITALS: BP 129/76; PULSE 98; RESP 18
== END 2020-03-16 14:05 | disposition home or self-care (01) ==
LOC: RADPROMAIN 13:02
PROVIDERS: ATTEND Otolaryngology
DX: K11.6 Mucocele of salivary gland (principal)
CPT/HCPCS: 10005; 87070; 87075; 87205; 88173; 88305

== ENCOUNTER → 2020-04-11 | Outpatient (CLI) | payer MEDICARE, OTHER ==
[2020-04-12 01:51] LABS: African American GFR (CKD) 97.1 (60.0-200.0); Albumin 4.4 g/dL (3.80-4.90); Albumin/Globulin Ratio 1.57 (1.60-3.17); Anion Gap 10.3 mmol/L (4.00-12.00); Calcium 8.8 mg/dL (8.7-10.3); Carbon Dioxide 23.7 mmol/L (21.6-31.8); Chol/HDL Ratio 3.69; Globulin 2.8 g/dL (1.6-3.3); Non-African American GFR(CKD) 83.8 (60.0-200.0); Potassium 4.6 mmol/L (3.5-5.5); Total Bilirubin 1.7 mg/dL (0.3-1.2); Total Protein 7.2 g/dL (6.2-8.2)
== END | disposition home or self-care (01) ==
LOC: LABWHC1 14:24
PROVIDERS: ATTEND Nurse Practitioner Adult Health
DX: I10 Essential (primary) hypertension (principal); E78.2 Mixed hyperlipidemia
CPT/HCPCS: 36415; 80053; 80061

== ENCOUNTER → 2020-06-28 | Outpatient (CLI) | payer MEDICARE, OTHER ==
--- NOTE | 2020-06-28 15:59 | XR ---
EXAMINATION TYPE: XR chest 2V DATE OF EXAM: 06/28/2020 COMPARISON: Prior chest x-ray 07/06/2019 HISTORY: D 72.829, R 79.89, increased shortness of breath TECHNIQUE: Frontal and lateral views of the chest are obtained. FINDINGS: There is patchy bilateral basilar density greater on the right, the right hemidiaphragm is obscured. There is some minimal blunting of the left costophrenic angle. No evident pneumothorax. Ca rdiac mediastinal silhouette is likely stable for differences in technique. IMPRESSION: Right pleural effusion and associated atelectasis, correlate to exclude pneumonia. Minim al left effusion is suspected.
== END | disposition home or self-care (01) ==
LOC: RAD 15:28
PROVIDERS: ATTEND Nurse Practitioner Adult Health
DX: J90 Pleural effusion, not elsewhere classified (principal); J98.11 Atelectasis; E11.9 Type 2 diabetes mellitus without complications
CPT/HCPCS: 71046

== ENCOUNTER 2020-07-08 11:21 | Day surgery (SDC) | payer MEDICARE, OTHER ==
[2020-07-07 10:39] VITALS: BMI 29.9
[~2020-07-08 11:21] MED LIST changes: +ASPIRIN 325 MG TAB PO ONE; -ASPIRIN 325 MG TAB PO STA; +LIDOCAINE 1% INJ 10MG/ML (20 ML MDV) ONE; +VERAPAMIL 2.5 MG/ML 2 ML AMP ONE
[2020-07-08] MEDS ORDERED: SODIUM CHLORIDE 0.9% 1,000 ML IV ONE (11:27)
[2020-07-08 11:50] LABS: Glucose,Whole Blood 244 mg/dL (75-99)
[2020-07-08 11:54] LABS: Basophils % (A) 0 %; Eosinophils # (A) 0.1 k/uL (0-0.7); Eosinophils % (A) 1 %; HCT 38.2 % (39.0-53.0); HGB 12.9 gm/dL (13.0-17.5); Lymphocytes # (A) 1.5 k/uL (1.0-4.8); Lymphocytes % (A) 17 %; MCH 29.8 pg (25.0-35.0); MCHC 33.8 g/dL (31.0-37.0); Mean Platelet Volume 7.3; Monocytes # (A) 0.4 k/uL (0-1.0); Monocytes % (A) 5 %; Neutrophils # (A) 6.3 k/uL (1.3-7.7); Neutrophils % (A) 76 %; Platelet Count 245 k/uL (150-450); Poikilocytosis Slight; RBC 4.34 m/uL (4.30-5.90); RDW 15.5 % (11.5-15.5); WBC 8.3 k/uL (3.8-10.6)
[2020-07-08 12:00] VITALS: RESP 16; TEMP 98.6
[2020-07-08 12:10] LABS: African American GFR (CKD) >90 (>60 ml/min/1.73 sqM); Anion Gap 9 mmol/L; Blood Urea Nitrogen 20 mg/dL (9-20); Calcium 9.1 mg/dL (8.4-10.2); Carbon Dioxide 29 mmol/L (22-30); Chloride 100 mmol/L (98-107); Glucose 255 mg/dL (74-99); Non-African American GFR(CKD) >90 (>60 ml/min/1.73 sqM); Potassium 4.2 mmol/L (3.5-5.1); Sodium 138 mmol/L (137-145)
[2020-07-08] MEDS ORDERED: HEPARIN SODIUM 1,000 UN/ML (10ML VL) ONE (13:14)
[2020-07-08] MEDS ORDERED: fentaNYL (PF) 50 MCG/ML 2 ML AMP ONE (13:14)
[2020-07-08] MEDS ORDERED: LIDOCAINE 1% INJ 10MG/ML (20 ML MDV) SQ ONE (13:19)
[2020-07-08] MEDS ORDERED: VERAPAMIL SYRINGE (5 MG/10 ML) INTRAARTER ONE (13:19)
[2020-07-08] MEDS ORDERED: fentaNYL (PF) 50 MCG/ML 2 ML AMP IV ONE (13:19)
[2020-07-08] MEDS ORDERED: MIDAZOLAM 2 MG/2 ML VIAL IV ONE ×2 (13:23)
[2020-07-08] MEDS ORDERED: HEPARIN SODIUM 1,000 UN/ML (10ML VL) IV ONE (13:30)
[2020-07-08] MEDS ORDERED: IOPAMIDOL-370 125ML BTL INJ ONE (13:36)
[2020-07-08] MEDS ORDERED: RX INFO: IV CONTRAST WAS GIVEN 1 EACH MISC MISCELLANE PRN (13:51)
[2020-07-08] MEDS ORDERED: SODIUM CHLORIDE 0.9% 1,000 ML IV SCH (14:00)
--- NOTE | 2020-07-08 16:21 | CC ---
CARDIAC CATHETERIZATION REPORT Mr. Camacho is a 54-year-old male who has a known history of coronary artery disease, history of severe cardiomyopathy, who recently had myocardial perfusion imaging that revealed a prior myocardial infarction with mild leelee-infarct ischemia with a drop in his ejection fraction during stress. In view of that, recommendation was made regarding cardiac catheterization. The procedure, its risks and complications were discussed with the patient, who was in full understanding and agreement. PROCEDURE DESCRIPTION: The patient was brought to the label stamper in a fasting, semi-sedated state after receiving fentanyl and Benadryl and achieving a moderate conscious sedated state. Using Xylocaine anesthesia and Seldinger technique, a 6-Belarusian sheath was introduced in the left radial artery. Selective right and left coronary angiography was performed using 5-Belarusian 4 bend right and left Miguel catheters. Multiple views were taken of the arteries, including hemiaxial views. Following that, a 5-Belarusian tight pigtail catheter was introduced into the left ventricle and a 30-degree JAY view of the left ventricle was obtained. Following that, catheter and sheath were removed. Hemostasis was obtained with deployment of a TR band. There was no immediate complication. Patient was returned to his room in stable condition. Of note, the patient received 5000 units of intravenous heparin as well as intra-arterial verapamil. FINDINGS: LEFT MAIN: This is a large-sized vessel, trifurcating into left circumflex, left anterior descending artery and ramus intermedius. Left main coronary artery has no evidence of high-grade stenosis. LEFT ANTERIOR DESCENDING ARTERY: This is a large-sized vessel reaching toward the apex with a wrap around the apex segment. The stented segment in the proximal LAD is patent with mild intimal restenosis of 10% to 20%. There is a first diagonal branch; the takeoff is within the stent. The diagonal branch is small in caliber, has diffuse intimal disease up to 50% to 60%. LEFT CIRCUMFLEX: This is a nondominant vessel giving rise to one obtuse marginal branch of large caliber. The left circumflex has mild intimal disease of 10% to 20% without any evidence of high-grade stenosis. RAMUS INTERMEDIUS: This is a large-sized vessel reaching toward the apicolateral wall. The ramus intermedius has mild plaque proximally of 10% to 20%. RIGHT CORONARY ARTERY: This is a dominant vessel, large in caliber, bifurcating into PDA and posterolateral segment and branches. The stented PDA is patent without any evidence of restenosis. LEFT VENTRICULOGRAM: Left ventriculogram was performed in 30-degree JAY view and revealed anteroapical severe hypokinesis to akinesis. There was no mitral regurgitation. The estimated right ventricular systolic pressure is 14 to 16 mmHg. CONCLUSION: 1. Patent stent to the LAD and to the right coronary artery. 2. Moderate disease in the first diagonal branch. 3. Mild disease in the left circumflex. 4. Moderately impaired left ventricular systolic function. RECOMMENDATIONS: In view of findings and anatomy, I have recommended continued medical therapy with the aggressive coronary risk modifications that have been initiated. Those findings and recommendation were discussed with the patient, and he is in full understanding and agreement. Duration of the sedation was 24 minutes. JACKIE / KADE: [id number] /
--- NOTE | 2020-07-08 16:27 | LTR ---
July 08, 2020 To: Dr. Acharya Re: Jeffy Camacho (61) Dear Dr. Acharya: I had the pleasure of performing cardiac catheterization on Mr. Camacho at [facility] on July 08, and a full copy of the procedure note will be forwarded to you. In brief, he was found to have no evidence of significant restenosis at the site of the prior stenting. Based on those findings, I have recommended continued medical therapy with the aggressive coronary risk modifications you have initiated. Thank you again for allowing me to participate in this patient's care. Please feel free to call with any questions. Sincerely yours, Diana Ovalle M.D. JACKIE / KADE: [phone] /
[2020-07-08 17:48] VITALS: BP 113/60; PULSE 94
[2020-07-08] MEDS ORDERED: METOPROLOL TARTRATE 12.5 MG TAB PO SCH (21:00)
[2020-07-08] MEDS ORDERED: ATORVASTATIN 80 MG TAB PO SCH (21:00)
[2020-07-08] MEDS ORDERED: BACLOFEN 10 MG TAB PO SCH (21:00)
[2020-07-08] MEDS ORDERED: TICAGRELOR 90 MG TAB PO SCH (21:00)
[2020-07-08] MEDS ORDERED: INSULIN DETEMIR (LEVEMIR) 100 UNIT/ML SYR SQ SCH (21:00)
[2020-07-09] MEDS ORDERED: LEVOTHYROXINE 25 MCG TAB PO SCH (09:00)
[2020-07-09] MEDS ORDERED: LOSARTAN 25 MG TAB PO SCH (09:00)
[2020-07-09] MEDS ORDERED: AMIODARONE 200 MG TAB PO SCH (09:00)
[2020-07-09] MEDS ORDERED: ASPIRIN 81 MG PO SCH (09:00)
[2020-07-09] MEDS ORDERED: NON FORMULARY DRUG (Omeprazole [Omeprazole] 20 MG Capsule.Dr) PO SCH (09:00)
[2020-07-09] MEDS ORDERED: SPIRONOLACTONE 25 MG TAB PO SCH (09:00)
== END 2020-07-08 17:36 | disposition home or self-care (01) ==
LOC: CATHCVL 11:21
PROVIDERS: ATTEND Internal Medicine Interventional Cardiology
DX: I25.10 Atherosclerotic heart disease of native coronary artery without angina pectoris (principal); R93.1 Abnormal findings on diagnostic imaging of heart and coronary circulation; R94.39 Abnormal result of other cardiovascular function study; I25.5 Ischemic cardiomyopathy; I10 Essential (primary) hypertension; E11.9 Type 2 diabetes mellitus without complications; I25.2 Old myocardial infarction; E78.2 Mixed hyperlipidemia; R06.09 Other forms of dyspnea; R60.0 Localized edema; Z95.5 Presence of coronary angioplasty implant and graft; Z79.899 Other long term (current) drug therapy; Z79.82 Long term (current) use of aspirin; Z98.890 Other specified postprocedural states; Z79.02 Long term (current) use of antithrombotics/antiplatelets; Z79.4 Long term (current) use of insulin; Z79.890 Hormone replacement therapy; Z88.0 Allergy status to penicillin; Z88.8 Allergy status to other drugs, medicaments and biological substances; Z88.1 Allergy status to other antibiotic agents; Z88.2 Allergy status to sulfonamides; Z88.7 Allergy status to serum and vaccine; Z87.891 Personal history of nicotine dependence; Z82.49 Family history of ischemic heart disease and other diseases of the circulatory system
CPT/HCPCS: 93458; 80048; 85025; C1769; C1894; J2250; J2001; J3010; J1644; Q9967

== ENCOUNTER → 2020-12-22 | Outpatient (CLI) | payer MEDICARE, OTHER ==
--- NOTE | 2020-12-24 15:00 | ECHOF ---
Referral Reason:I27.0 pulmonary Hypertension MEASUREMENTS -------- HEIGHT: 175.3 cm WEIGHT: 89.8 kg BP: IVSd: 1.2 cm (0.6 - 1.1) LVIDd: 4.2 cm (3.9 - 5.3) LVPWd: 1.1 cm (0.6 - 1.1) EDV(Teich): 79 ml IVSs: 1.3 cm LVIDs: 3.1 cm LVPWs: 1.5 cm %IVS Thck: 10 % ESV(Teich): 39 ml EF(Teich): 51 % %FS: 26 % SV(Teich): 41 ml LALs A4C: 4.9 cm LAAs A4C: 15.4 cm LAESV A-L A4C: 42 ml LAESV MOD A4C: 37 ml LALs A2C: 4.4 cm LAAs A2C: 15.0 cm LAESV A-L A2C: 43 ml LAESV MOD A2C: 41 ml LAESV(A-L): 44 ml LAESV Index (A-L): 21.55 ml/m Ao Diam: 3.3 cm (2.0 - 3.7) LA Diam: 3.1 cm (2.7 - 3.8) AV Cusp: 2.3 cm (1.5 - 2.6) EPSS: 1.8 cm MV E Joce: 0.64 m/s MV DecT: 108 ms MV Dec Canyon: 6.0 m/s MV A Joce: 0.88 m/s MV E/A Ratio: 0.73 MV PHT: 31 ms MR Vmax: 1.14 m/s MR maxP.17 mmHg AV Vmax: 1.29 m/s AV maxP.68 mmHg TR Vmax: 1.34 m/s TR maxP.23 mmHg RAP: 5.00 mmHg RVSP: 12.23 mmHg MV EF SLOPE: 112.84 mm/s (70 - 150) MV EXCURSION: 12.15 mm (> 18.000) FINDINGS -------- This was a technically difficult study with suboptimal views. The left ventricular size is normal. There is borderline concentric left ventricular hypertrophy. Overall left ventricular systolic function is mild-moderately impaired with, an EF between 40 - 45 % . Normal LAP Grade 1 Diastolic Dysfunction. The right ventricle is normal in size. The left atrial size is normal. Normal LA size by volume 22+/-6 ml/m2. The right atrial size is normal. Lumason used The aortic valve is trileaflet and appears structurally normal. The mitral valve is normal. There is trace mitral regurgitation. The tricuspid valve appears structurally normal. Trace tricuspid regurgitation present. Right main tricular systolic pressure is normal at < 35 mmHg. There is no pulmonic regurgitation present. The aortic root size is normal. Normal inferior vena cava with normal inspiratory collapse consistent with estimated right atrial pre ssure of 5 mmHg. There is no pericardial effusion. CONCLUSIONS -------- 1. The left ventricular size is normal. 2. There is borderline concentric left ventricular hypertrophy. 3. Overall left ventricular systolic function is mild-moderately impaired with, an EF between 40 - 45 %. 4. Normal LAP Grade 1 Diastolic Dysfunction. 5. There is trace mitral regurgitation. 6. Trace tricuspid regurgitation present. 7. There is no pericardial effusion. ENDOCRINOLOGY SPECIALIST: Ashley Chilel RDCS
== END | disposition home or self-care (01) ==
LOC: RADECHMAIN 16:05
PROVIDERS: ATTEND Internal Medicine Hematology & Oncology
DX: I08.1 Rheumatic disorders of both mitral and tricuspid valves (principal)
CPT/HCPCS: C8929; Q9950; 93306

== ENCOUNTER → 2021-04-13 | Outpatient (CLI) | payer MEDICARE, OTHER ==
--- NOTE | 2021-04-13 17:04 | XR ---
EXAMINATION: XR chest 2V DATE AND TIME: 04/13/2021 4:42 PM CLINICAL INDICATION: Shortness of breath, fluid on lung and thoracentesis, leukocytosis; D72.829,R79. 89,E11.9,I10 TECHNIQUE: Departmental protocol COMPARISON: 06/28/2020 FINDINGS: The frontal chest radiographic appearance is similar to that seen on 06/28/2020, with blunting of the lateral costophrenic angles and pleural shadow thickening, but the lateral radiograph shows better in flation on the present study, as compared with the lateral radiograph of 06/28/2020. The remainder of the lungs are clear and well-expanded bilaterally. There is no evidence of pulmonary edema. The pleural spaces are negative. The cardiac silhouette is not enlarged. The remainder of the mediastinal silhouette is unremarkable. The skeletal structures and soft tissues are negative for acute findings. IMPRESSION: No definite acute radiographic process, but similar right pleural/parenchymal findings as seen on the 06/28/2020 radiographs.
== END | disposition home or self-care (01) ==
LOC: RADXRMAIN 16:27
PROVIDERS: ATTEND Registered Nurse Oncology
DX: R06.02 Shortness of breath (principal); D72.829 Elevated white blood cell count, unspecified
CPT/HCPCS: 71046

== ENCOUNTER → 2021-11-17 | Outpatient (CLI) | payer MEDICARE, OTHER ==
--- NOTE | 2021-11-19 12:09 | CA ---
Transthoracic Echo Report Name: Jeffy Camacho Age: 56 Gender: M : 1965 Exam Date: 11/17/2021 15:52 Exam Location: [place] [facility] Ht (in): 69 Wt (lb): 200 Ordering Physician: Diana Ovalle MD ([id number]) Attending/Referring Phys: Rn Telephonic Violeta Eagle RDCS Procedure CPT: Indications: I25.5 Cardiac Hx: Technical Quality: Poor Contrast 1: Lumason Total Dose (mL): 4 Contrast 2: Total Dose (mL): MEASUREMENTS (Male / Female) Normal Values 2D ECHO LV Diastolic Diameter PLAX 5.9 cm 4.2 - 5.9 / 3.9 - 5.3 cm LV Systolic Diameter PLAX 4.4 cm IVS Diastolic Thickness 1.6 cm 0.6 - 1.0 / 0.6 - 0.9 cm LVPW Diastolic Thickness 0.9 cm 0.6 - 1.0 / 0.6 - 0.9 cm LV Relative Wall Thickness 0.4 RV Internal Dim ED PLAX 3.1 cm LA Volume 85.7 cm 18 - 58 / 22 - 52 cm M-MODE Aortic Root Diameter MM 3.3 cm AV Cusp Separation MM 1.9 cm DOPPLER AV Peak Velocity 122.1 cm/s AV Peak Gradient 6.0 mmHg LVOT Peak Velocity 90.0 cm/s LVOT Peak Gradient 3.2 mmHg MV Area PHT 5.5 cm Mitral E Point Velocity 92.7 cm/s Mitral A Point Velocity 70.1 cm/s Mitral E to A Ratio 1.3 MV Deceleration Time 137.0 ms FINDINGS Left Ventricle Moderately increased septal wall thickness. Left ventricular ejection fraction is estimated at 35- 40%. Reduced global left ventricular systolic function. [place] hypokinetic. Right Ventricle Right ventricle not well visualized. Normal right ventricular size. Right Atrium Right atrium not well visualized. Left Atrium Severely increased left atrial volume. Mildly increased left atrial area. Mitral Valve [id number] mitral regurgitation. Aortic Valve Trileaflet aortic valve. No aortic valve stenosis or regurgitation. Tricuspid Valve Mild tricuspid regurgitation. Pulmonic Valve Pulmonic valve not well visualized. No pulmonic regurgitation. Pericardium Normal pericardium. Aorta Normal size aortic root and proximal ascending aorta. CONCLUSIONS Dilated left ventricle with reduced LV systolic function ejection fraction 35- 40% Previewed by: Dr. Sascha Ye MD (Electronically Signed) Final Date: 19 November 2021 12:08
== END | disposition home or self-care (01) ==
LOC: RADECHMAIN 15:50
PROVIDERS: ATTEND Internal Medicine Interventional Cardiology
DX: I51.7 Cardiomegaly (principal)
CPT/HCPCS: C8929; Q9950; 93306

== ENCOUNTER → 2021-12-13 | Outpatient (CLI) | payer MEDICARE, OTHER ==
[2021-12-13 18:18] LABS: ALT 21 U/L (10-49); AST 23 U/L (14-35); African American GFR (CKD) 106.2 (60.0-200.0); Albumin 4.6 g/dL (3.8-4.9); Albumin/Globulin Ratio 1.34 (1.60-3.17); Alkaline Phosphatase 50 U/L (41-126); BUN/Creat Ratio 21.35 Ratio (12.00-20.00); Blood Urea Nitrogen 19.6 mg/dL (9.0-27.0); Calcium 9.1 mg/dL (8.7-10.3); Carbon Dioxide 27.4 mmol/L (20.0-27.5); Chloride 100 mmol/L (96-109); Chol/HDL Ratio 3.69 Ratio; Globulin 3.4 g/dL (1.6-3.3); Glucose 161 mg/dL (70-110); LDL Cholesterol,Calculated 46.4 mg/dL (0.0-131.0); Non-African American GFR(CKD) 91.6 (60.0-200.0); Potassium 4.5 mmol/L (3.5-5.5); Sodium 139 mmol/L (135-145)
== END | disposition home or self-care (01) ==
LOC: LABWHC1 12:31
PROVIDERS: ATTEND Nurse Practitioner Adult Health
DX: I10 Essential (primary) hypertension (principal); E78.2 Mixed hyperlipidemia
CPT/HCPCS: 36415; 80053; 80061

== ENCOUNTER → 2022-07-11 | Outpatient (CLI) | payer MEDICARE, OTHER ==
[2022-07-12 01:22] LABS: ALT 19 U/L (10-49); AST 19 U/L (14-35); African American GFR (CKD) 108.7 (60.0-200.0); Albumin 4.1 g/dL (3.8-4.9); Albumin/Globulin Ratio 1.24 (1.60-3.17); Alkaline Phosphatase 54 U/L (41-126); BUN/Creat Ratio 14.22 Ratio (12.00-20.00); Blood Urea Nitrogen 12.8 mg/dL (9.0-27.0); Calcium 8.5 mg/dL (8.7-10.3); Carbon Dioxide 26.8 mmol/L (20.0-27.5); Chloride 98 mmol/L (96-109); Chol/HDL Ratio 3.64 Ratio; Globulin 3.3 g/dL (1.6-3.3); Glucose 138 mg/dL (70-110); LDL Cholesterol,Calculated 25.9 mg/dL (0.0-131.0); Non-African American GFR(CKD) 93.8 (60.0-200.0); Potassium 3.8 mmol/L (3.5-5.5); Sodium 136 mmol/L (135-145); Total Protein 7.4 g/dL (6.2-8.2)
== END | disposition home or self-care (01) ==
LOC: LABWHC1 14:22
PROVIDERS: ATTEND Internal Medicine Interventional Cardiology
DX: E78.2 Mixed hyperlipidemia (principal)
CPT/HCPCS: 36415; 80053; 80061

== ENCOUNTER 2024-10-19 05:48 | Day surgery (SDC) | payer MEDICARE, OTHER ==
[2024-10-19] MEDS ORDERED: ALPRAZolam 0.5 MG TAB PO PRN (06:04)
[2024-10-19] MEDS ORDERED: HEPARIN SODIUM,PORCINE (1 ML) 2,500 UNIT in SODIUM CHLORIDE 0.9% 250 ML IRRIGATION PRN (06:04)
[2024-10-19] MEDS ORDERED: NITROGLYCERIN SL TABS 0.4 MG TAB SUBLINGUAL PRN (06:04)
[2024-10-19] MEDS ORDERED: ALPRAZolam 0.25 MG TAB PO PRN (06:04)
[2024-10-19] MEDS ORDERED: HEPARIN SODIUM,PORCINE 10,000 UNIT in SODIUM CHLORIDE 0.9% 1,000 ML IRRIGATION PRN (06:04)
[2024-10-19 06:19] LABS: Glucose,Whole Blood 142 mg/dL (70-110)
[2024-10-19 06:40] VITALS: RESP 16; TEMP 98
[2024-10-19 06:48] LABS: Basophils % (A) 1 %; Eosinophils # (A) 0.2 k/uL (0-0.7); Eosinophils % (A) 3 %; HCT 48.6 % (39.0-53.0); HGB 15.2 gm/dL (13.0-17.5); Hypochromasia Slight; Lymphocytes # (A) 1.7 k/uL (1.0-4.8); Lymphocytes % (A) 31 %; MCH 27.7 pg (25.0-35.0); MCHC 31.3 g/dL (31.0-37.0); MCV 88.4 fL (80.0-100.0); Mean Platelet Volume 8.7; Monocytes # (A) 0.5 k/uL (0-1.0); Monocytes % (A) 9 %; Neutrophils # (A) 3.1 k/uL (1.3-7.7); Neutrophils % (A) 55 %; Platelet Count 193 k/uL (150-450); Poikilocytosis Slight; RDW 15.2 % (11.5-15.5); WBC 5.6 k/uL (3.8-10.6)
[2024-10-19] MEDS: ASPIRIN 325 MG TAB PO STA (06:52)
[2024-10-19] MEDS: SODIUM CHLORIDE 0.9% 1,000 ML in EMPTY BAG 1 BAG IV SCH (06:53)
[2024-10-19] MEDS: IV FLUID CONTINUATION 1,000 ML IV ONE (06:53)
[2024-10-19 07:08] LABS: African American GFR (CKD) 77 (>60 ml/min/1.73 sqM); Anion Gap 13 mmol/L; Blood Urea Nitrogen 18 mg/dL (9-20); Carbon Dioxide 27 mmol/L (22-30); Chloride 100 mmol/L (98-107); Glucose 148 mg/dL (74-99); Non-African American GFR(CKD) 67 (>60 ml/min/1.73 sqM); Potassium 4.2 mmol/L (3.5-5.1); Sodium 140 mmol/L (137-145)
[2024-10-19] MEDS: fentaNYL (PF) 50 MCG/1 ML VIAL IVP ONE (08:23)
[2024-10-19] MEDS: LIDOCAINE 1% INJ 10MG/ML (20 ML MDV) SQ ONE (08:26)
[2024-10-19] MEDS: MIDAZOLAM 2 MG/2 ML VIAL IVP ONE (08:29)
[2024-10-19] MEDS: HEPARIN SODIUM,PORCINE 10,000 UNIT in SODIUM CHLORIDE 0.9% 1,000 ML IRRIGATION ONE (08:33)
[2024-10-19] MEDS: HEPARIN SODIUM,PORCINE (1 ML) 2,500 UNIT in SODIUM CHLORIDE 0.9% 250 ML IRRIGATION ONE (08:33)
[2024-10-19] MEDS: IOPAMIDOL-370 100ML BTL INJ ONE (08:51)
[2024-10-19] MEDS ORDERED: RX INFO: IV CONTRAST WAS GIVEN 1 EACH MISC MISCELLANE PRN (08:58)
[2024-10-19] MEDS ORDERED: ASPIRIN 81 MG PO SCH (09:00)
[2024-10-19] MEDS ORDERED: LEVOTHYROXINE 25 MCG TAB PO SCH (09:00)
[2024-10-19] MEDS: SODIUM CHLORIDE 0.9% 1,000 ML IV SCH (09:05)
--- NOTE | 2024-10-19 09:07 | P.CARDCATH ---
Date of Procedure: 10/19/24 Description of Procedure: Cardiac Catheterization: The patient is a 59-year-old male with a known history of CAD status post stenting of the LAD and the PDA who presented with new onset chest discomfort, worsening dyspnea and fatigue. Recommendations were made regarding cardiac catheterization, the risks and the complications were discussed with the patient who is in full understanding and agreement. 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 Using Xylocaine Anesthesia and modified Seldinger technique, and using a micropuncture technique , a 6-Romanian sheath was introduced in tand using he right femoral artery. Attempt to cannulate the left radial artery was unsuccessful. Subsequently, selective coronary angiography was performed using a 6-Romanian 4 bend Miguel catheter. Multiple views of the coronary artery including hemiaxial views were obtained. The 6 Romanian pigtail catheter was used to cross the aortic valve and LVEDP was calculated. Following that, catheter and sheath were removed. Hemostasis was obtained with deployment of an Angio-Seal. There was no immediate complication. Patient was returned to room in stable condition. Findings: Left main: This is a large size vessel, bifurcating into LAD and left circumflex, left main has no obstructive disease. LAD: This is a large size vessel, reaching to the apex with a wraparound apex segment giving rise to a small diagonal branch in the midsegment. The stented segment in the proximal LAD is patent. There is mild plaque proximal to the stent of 10 to 20%. The ostium of the diagonal branch has a 70 to 80% stenosis, unchanged since 2019, the rest of the vessel has no high-grade stenosis. l Left circumflex: This is a large nondominant vessel giving rise to 2 obtuse marginal branch, the first 1 is very proximal and has 20 to 30% proximal plaque, the rest of the vessel has no high-grade stenosis RCA: This is a large dominant vessel, bifurcating into PDA and PLV the stented segment of the PDA is patent, there is no evidence of obstructive disease Left Ventriculogram: Not performed Hemodynamics: There was no gradient across the aortic valve, LVEDP was 6-8 mmHg Conclusion: 1. Patent stent in the LAD with obstructive disease at the ostium of the jailed diagonal branch with no progression since 2019 2. Patent stent in the PDA 3. Mild disease in the left circumflex 4. Low EDP Recommendations: I see no evidence of significant progression of disease compared to 2020. His blood pressure is on the low side, I will decrease the dose of his losartan at this time. The findings and the recommendations were discussed with the patient and the family and they were in full understanding and agreement. Duration of sedation is 25 minutes.
[2024-10-19 10:50] VITALS: PULSE 93
[2024-10-19 12:25] VITALS: BP 126/64
[2024-10-19] MEDS ORDERED: ATORVASTATIN 80 MG TAB PO SCH (21:00)
[2024-10-19] MEDS ORDERED: METOPROLOL TARTRATE 25 MG TAB PO SCH (21:00)
[2024-10-20] MEDS ORDERED: EZETIMIBE 10 MG TAB PO SCH (09:00)
== END 2024-10-19 14:45 | disposition home or self-care (01) ==
LOC: CATHCVL 05:48
PROVIDERS: ATTEND Internal Medicine Interventional Cardiology
DX: I25.10 Atherosclerotic heart disease of native coronary artery without angina pectoris (principal); I25.5 Ischemic cardiomyopathy; E78.2 Mixed hyperlipidemia; E11.9 Type 2 diabetes mellitus without complications; I10 Essential (primary) hypertension; Z88.2 Allergy status to sulfonamides; Z88.0 Allergy status to penicillin; Z88.1 Allergy status to other antibiotic agents; Z88.8 Allergy status to other drugs, medicaments and biological substances; Z95.5 Presence of coronary angioplasty implant and graft; Z79.899 Other long term (current) drug therapy; Z79.82 Long term (current) use of aspirin
CPT/HCPCS: 93458; 80048; 85025; 99152; 99153; C1760; C1769 ×3; C1894 ×2; J2250; J1644 ×2; J2003; Q9967; J3010